=== PATIENT | female | born 1945 | race Caucasian/White ===

== ENCOUNTER 2017-07-16 19:01 | Inpatient (IN) ==
--- OUTSIDE RECORDS SUMMARY | 2017-07-16 19:15 | External Medical Summary ---
:1945 Author Organization [facility]. Summary purpose CCDA Sent to [facility] Chief Complaint and Reason for Visit Admit Diagnosis 1 R GROIN/R HIP PAIN Problem list Condition Status Certainty Chronicity Onset .Pain - other; Right groin pain Discharged Encounters The following conditions tracked for encounter diagnoses were recorded for this visit: Finding or Diagnosis Status Certainty Chronicity Onset .Pain - other; Right groin pain Discharged Medications Discharge Medications Status Medication Directions Current ALPRAZolam 0.5 mg tablet 0.05 miligram(s) oral HS Current atorvastatin 10 mg tablet 10 miligram(s) oral HS Current Calcium 500 500 mg calcium (1,250 mg) 1.5 gram(s) oral BID tablet Current Coumadin 3 mg tablet 3 miligram(s) oral DAILY 3mg Mon-Sat, 4mg Sun Current cycloSPORINE (RESTASIS) 0.05 %: DROPS 2 DROP ophthalmic Give OPHT BID Current digoxin 250 mcg tablet 250 miligram(s) oral DAILY Current FLUoxetine 20 mg tablet 20 miligram(s) oral DAILY Current insulin aspart (NOVOLOG) 100 unit/mL: 12 UNIT subcutaneous Give SUBQ WITH VIAL MEALS Current insulin detemir (LEVEMIR) 100 unit/mL: 32 UNIT subcutaneous Give SUBQ HS VIAL Current losartan 25 mg tablet 25 miligram(s) oral DAILY Current metFORMIN 500 mg tablet 500 miligram(s) oral BID Current meTOPROLOL tartrate 50 mg tablet 50 miligram(s) oral BID Current nitroglycerin 0.4 mg sublingual tablet 0.04 miligram(s) Sublingual SL DAILY NEEDED for chest pain every 4 min as needed Current oxyCODONE-acetaminophen (PERCOCET) 1 TAB oral EVERY THREE HOURS 10-325 mg: TABLET NEEDED for PAIN Stopped Novolog Mix 70-30 100 unit/mL 14 unit(s) subcutaneous WITH MEALS subcutaneous cartridge Stopped Tylenol Arthritis Pain 650 mg 1300 miligram(s) oral EVERY EIGHT HOURS tablet,extended release 2-3 caplets Allergies, adverse reactions, alerts Allergen Category Ingredient Status Reaction Severity Onset No Known Food No Known Food No Known Food Active Allergy Allergy Allergy No Known Drug No Known Drug No Known Drug Active Allergy Allergy Allergy Immunizations No immunizations recorded for this patient visit Relevant diagnostic tests and/or laboratory data RESULTS [id number]:00 Discharge Summary Patient disagreeable to nursing staff and , upset at family, blamed daughter for letting hospital interfere with their relationship. Patient ambulated from her room to leave hospital, this nurse provided wheelchair and assisted family to waiting vehicle. Patient stood without assistance and climbed into front seat of suburban unassisted. [id number] Discharge Summary Pt is admitted as outpt thru ER with uncontrolled right groin and thigh pain. [place] [facility] [place] that was essentially negative for fx or other cause of pain. She was dismissed to home, and reports her pain is uncontrolled, and she is unable to amb due to the pain. She is admitted for pain control, and further eval. Her xray of the pelvis is negative for fx. Her pain is fairly well controlled with Percocet and flexeril. Pt with irritability - markedly worse in the evening. Improved again in the am of the day of dismissal. CBC [id number]:00 Result Normal Range Units WBC 9.16 4.8-10.8 x103/mm3 Neutrophil % H 77.6 50-70 % Lymph % L 14.2 20-50 % [place] % 8.0 1.0-9.0 % Eosinophil % 0.0 0-4 % Basophil % 0.2 0-2 % Neutrophil # H 7.11 3.0-7.0 x103/mm3 Lymph # 1.30 1.0-4.0 x103/mm3 [place] # 0.73 0.0-0.8 x103/mm3 Eosinophil # 0.00 0-0.5 x103/mm3 Basophil # 0.02 0-0.2 x103/mm3 RBC 4.55 4.20-5.40 x103/mm3 HGB 13.7 12.0-16.0 g/dl HCT 41.4 37.0-47.0 % MCV 91.0 81-99 FL MCH 30.1 27.0-31.0 pg MCHC 33.1 32.0-36.0 g/dl RDW 13.0 12-15 % Platelet 195 150-400 x103/mm3 MPV 9.8 6.0-10.0 FL Chemistry Group [id number]:00 Result Normal Range Units Sodium 136 134-145 mmol/L Potassium 4.3 3.6-5.0 mmol/L Chloride 99 98-107 mmol/L CO2 26 22-30 mmol/L Glucose H 271 75-110 mg/dl BUN 16 9-20 mg/dl Creatinine L .62 0.8-1.7 mg/dl eGFR 95 ml/min. Total Protein L 6.2 6.3-8.2 g/dl Albumin L 3.4 3.5-5.0 g/dl Calcium 8.8 8.4-10.2 mg/dl Alk Phos 72 38-126 U/L AST H 55 14-36 U/L ALT 48 11-66 U/L T Bili .7 0.2-1.3 mg/dl A/G Ratio 1.2 Ratio Uric Acid 3.6 3.5-8.5 mg/dl Digoxin 1.0 0.8-2.0 ng/ml Coagulation Group [id number]:30:00 Result Normal Range Units Protime 12.2 9.5-12.3 Sec INR 1.1 History of procedures Procedure Code Code Type Description Date Performed Performing Physician 03148 CPT-4 COMPREHEN METABOLIC 08-01-2016 MONSTER HAZEL PANEL 93147 CPT-4 PROTHROMBIN TIME 08-01-2016 MONSTER HAZEL 35346 CPT-4 COMPLETE CBC, 08-01-2016 MONSTER HAZEL AUTOMATED 61657 CPT-4 ASSAY OF DIGOXIN 08-01-2016 MONSTER HAZEL 07950 CPT-4 ASSAY OF BLOOD/URIC 08-01-2016 MONSTER HAZEL ACID 15268 CPT-4 X-RAY EXAM OF PELVIS 08-01-2016 MONSTER HAZEL J1815 CPT-4 INSULIN INJECTION 08-01-2016 MONSTER HAZEL J1815 CPT-4 INSULIN INJECTION 08-01-2016 MONSTER HAZEL J1885 CPT-4 KETOROLAC TROMETHAMINE 08-01-2016 MONSTER HAZEL INJ J1815 CPT-4 INSULIN INJECTION 08-01-2016 MONSTER HAZEL J1815 CPT-4 INSULIN INJECTION 08-01-2016 MONSTER HAZEL J1815 CPT-4 INSULIN INJECTION 08-01-2016 MONSTER HAZEL J1815 CPT-4 INSULIN INJECTION 08-01-2016 MONSTER HAZEL J1815 CPT-4 INSULIN INJECTION 08-01-2016 MONSTER HAZEL J1815 CPT-4 INSULIN INJECTION 08-02-2016 MONSTER HAZEL J1815 CPT-4 INSULIN INJECTION 08-02-2016 MONSTER HAZEL 40800 CPT-4 EMERGENCY DEPT VISIT 07-31-2016 MONSTER HAZEL G0378 CPT-4 HOSPITAL OBSERVATION [place] 08-01-2016 [place] [address] CPT-4 THER/PROPH/DIAG INJ, IV 08-01-2016 MONSTER HAZEL PUSH 11929 CPT-4 THER/PROPH/DIAG INJ, 08-01-2016 MONSTER HAZEL SC/IM 88748 CPT-4 THER/PROPH/DIAG INJ, 08-01-2016 MONSTER HAZEL SC/IM 09321 CPT-4 THER/PROPH/DIAG INJ, 08-01-2016 MONSTER HAZEL SC/IM 19566 CPT-4 THER/PROPH/DIAG INJ, 08-01-2016 MONSTER HAZEL SC/IM 83019 CPT-4 THER/PROPH/DIAG INJ, 08-01-2016 MONSTER HAZEL SC/IM 62103 CPT-4 THER/PROPH/DIAG INJ, 08-01-2016 MONSTER HAZEL SC/IM 92985 CPT-4 THER/PROPH/DIAG INJ, 08-02-2016 MONSTER HAZEL SC/IM 79200 CPT-4 THER/PROPH/DIAG INJ, 08-02-2016 MONSTER HAZEL SC/IM Functional status Functional Status Finding Observation Time Impaired Extremity o Yes (Please Specify) [id number]:50 Comment: RLE Weight Bearing Statu Full [id number]:45 Transferring/Ambulat Needs Assistance [id number]:50 Bathing Needs Assistance [id number]:50 Dressing Needs Assistance 38-04-202435:50 Eating Independent [id number]:50 Drinking Independent 97-31-501310:50 Toileting Independent 57-23-410803:50 Able to Turn Self in Independent 26-24-281562:50 Cane Yes [id number]:50 Walker Yes :50 Cognitive Status Finding Observation Time Level of Consciousne Alert :45 Oriented to Person Yes :[address] Yes :45 Oriented to Time Yes :45 Eyes - KASSY Yes :45 Vital signs Type Value Date Respirations 16 :22 Pulse 50 :22 O2 Saturation 94% :22 Systolic Blood Press 191mm/HG :22 Diastolic Blood Pres 87mm/HG :22 Temperature (Fahr) 98.4Degrees :22 Height 61in :26 Weight 198.7LB :26 Social history Type Value Smoking Status NEVER SMOKER Treatment Plan Treatment Plan at Patient previously signed discharge papers reviewing her medications and follow-up with PCP. Discharge delayed due to patient reporting pain increased to 10, blood pressure increased at 1422. Patient losartan increased on discharge. Follow up with PCP. Hospital discharge instructions Diagnosis Right groin pain. Diet low sweet diet Activity Level Walk with wheeled walker at all times. Personal Items Retur home medications with daughter at 1710. Med Dispensed by Pro none Flu Vaccine Given Current/Not Needed Pneumonia Vaccine Gi Current/Not Needed Follow up with Dr. Dumas Appointment Date and 0900 08/06/2016
--- OUTSIDE RECORDS SUMMARY | 2017-07-16 19:16 | External Medical Summary | Continuity of Care Document ---
:1945 Author Organization [facility] Allergies Active Description Code Type Severity Reaction Onset Reported/ Identified Relationship Clinical to Patient Status Yes No Known 31597 ND N/A N/A 08/01/2016 Confirmed Drug Allergy 590 or Verified Yes No Known NO NF N/A N/A 08/01/2016 Confirmed Food Allergy KNOWN or FOOD Verified ALLER G Medications There is no data. 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 08/02/2016 Simi HAZEL MD E11.9 Type 2 diabetes MONSTER R mellitus without complications 08/02/2016 Simi HAZEL MD I10 Essential (primary) MONSTER R hypertension 08/02/2016 Simi HAZEL MD I48.2 Chronic atrial MONSTER R fibrillation 08/02/2016 Simi HAZEL MD M25.551 Pain in right hip MONSTER R 08/02/2016 Simi HAZEL MD M47.9 Spondylosis, MONSTER R unspecified 08/02/2016 Simi HAZEL MD R45.1 Restlessness and MONSTER R agitation 08/02/2016 Simi HAZEL MD Z79.4 retirement (current) MONSTER R use of insulin Procedures Code Description [place] [address] BRETT CHAPPELL 05/15/2012 THER/PROPH/DIAG INJ, SC/IM 14254 EMERGENCY BRETT CHAPPELL 05/15/2012 DEPT VISIT J1885 KETOROLAC BRETT CHAPPELL 05/15/2012 TROMETHAMINE INJ J2550 PROMETHAZINE BRETT CHAPPELL 05/15/2012 HCL INJECTION 51331 PROTHROMBIN MARION COBB MD 11/18/2013 TIME 35781 EMERGENCY MONSTER HAZEL MD 07/31/2016 DEPT VISIT 15976 X-RAY EXAM OF ILIR FLORIAN, MONSTER Hodgson 08/01/2016 PELVIS 98667 COMPREHEN ILIR FLORIAN, MONSTER Hodgson 08/01/2016 METABOLIC PANEL 96658 ASSAY OF MONSTER HAZEL MD 08/01/2016 DIGOXIN 85124 ASSAY OF MONSTER HAZEL MD 08/01/2016 BLOOD/URIC ACID 26155 COMPLETE CBC, MONSTER HAZEL MD 08/01/2016 AUTOMATED 56588 PROTHROMBIN MONSTER HAZEL MD 08/01/2016 TIME 20930 MONSTER HAZEL MD 08/01/2016 THER/PROPH/DIAG INJ, SC/IM 76233 MONSTER HAZEL MD 08/01/2016 THER/PROPH/DIAG INJ, IV PUSH G0378 HOSPITAL MONSTER HAZEL MD 08/01/2016 OBSERVATION PER HR J1815 INSULIN MONSTER HAZEL MD 08/01/2016 INJECTION J1885 KETOROLAC MONSTER HAZEL MD 08/01/2016 TROMETHAMINE INJ 08713 MONSTER HAZEL MD 08/02/2016 THER/PROPH/DIAG INJ, SC/IM J1815 INSULIN MONSTER HAZEL MD 08/02/2016 INJECTION Results Test Result Range Protime - 11/18/13 10:05 INR 3.5 Protime 39.3 SEC 9.8-12.4 CBC - 08/01/16 07:53 Eos # 0.00 x10^3 0-0.5 Eos % 0.0 % 0-4 HCT 41.4 % 37.0-47.0 HGB 13.7 G/DL 12.0-16.0 Lymph # 1.30 x10^3 1.0-4.0 Lymph % 14.2 % 20-50 MCH 30.1 PG 27.0-31.0 MCHC 33.1 G/DL 32.0-36.0 MCV 91.0 FL 81-99 [place] # 0.73 x10^3 0.0-0.8 [place] % 8.0 % 1.0-9.0 MPV 9.8 FL 6.0-10.0 Platelet 195 x10^3 150-400 RBC 4.55 x10^3 4.20-5.40 RDW 13.0 % 12-15 WBC 9.16 x10^3 4.8-10.8 Baso # 0.02 x10^3 0-0.2 Baso % 0.2 % 0-2 Neut % 77.6 % 50-70 Neut # 7.11 x10^3 3.0-7.0 Comprehensive Metabolic Panel - 08/01/16 08:14 Sodium 136 MMOLL 134-145 Potassium 4.3 MMOLL 3.6-5.0 Chloride 99 MMOLL 98-107 CO2 26 MMOLL 22-30 Glucose 271 MG/DL 75-110 BUN 16 MG/DL 9-20 Creatinine .62 MG/DL 0.8-1.7 Calcium 8.8 MG/DL 8.4-10.2 T Bili .7 MG/DL 0.2-1.3 T. Protein 6.2 G/DL 6.3-8.2 A/G Ratio 1.2 RATIO Albumin 3.4 G/DL 3.5-5.0 Alk Phos 72 U/L 38-126 ALT 48 U/L 11-66 AST 55 U/L 14-36 EGFR 95 MLMIN Digoxin - 08/01/16 08:14 Digoxin 1.0 NG/ML 0.8-2.0 Uric Acid - 08/01/16 08:14 Uric Acid 3.6 MG/DL 3.5-8.5 Protime - 08/01/16 08:23 INR 1.1 Protime 12.2 SEC 9.5-12.3 Encounters ACCT No. Visit Discharge Status Pt. Type Provider Facility Loc./Unit Complaint Date/Time [id number] 08/01/2016 08/02/2016 Parul Hastings MD 01:16:00 16:00:00 t [facility] [id number] 11/18/2013 11/18/2013 Parul Simpson MD 11:29:00 11:29:00 [facility] [id number] 05/15/2012 Document 15:25:00 Registrat ion
[2017-07-16] MEDS ORDERED: CEFEPIME 1 GM in NS 100 ML IV ONE (19:23)
[2017-07-16] MEDS ORDERED: SALINE FLUSH 10ml SYRINGE IVF PRN (19:23)
[2017-07-16] MEDS ORDERED: NS 1,000 ML IV ONE ×3 (19:23→20:42)
--- NOTE | 2017-07-16 19:36 | Emergency Department Report ---
Fall HPI - General Chief Complaint: Fall Stated Complaint: fever,fall Time Seen by Provider: 07/16/17 19:09 Source: patient, EMS, RN notes reviewed, old records reviewed Mode of arrival: EMS Limitations: no limitations - History of Present Illness HPI Narrative: 72yo woman presents to the ER for evaluation after a fall. Pt does not remember falling; she is not sure how long she was on the floor of her home. She was awoken by a pharmacy worker who came to her home to give pt her medications. Pt has had 2+/- weeks of diarrhea. Today, pt has noted that her urine is dark/ cloudy/malodorous. Since being assessed and transported, pt has c/o right hip/ LBP pain. Pt feels dehydrated. MD complaint: fall Onset (ago): unknown Fall from: standing Fall witnessed: no Place fall occurred: home Loss of consciousness: yes Prolonged down time: unclear Symptoms prior to fall: none Location of injury: back Severity: moderate Severity scale (1-10): 5 Quality: aching Associated symptoms (after fall): weakness, confusion - Related Data Home Medications Medication Instructions Recorded Confirmed Acetaminophen [Acetaminophen 8 650 mg PO TID #0 07/28/16 07/16/17 Hour] Atorvastatin Calcium 10 mg PO HS #0 07/28/16 07/16/17 Calcium Carbonate 600 mg PO BIDBS #0 07/28/16 07/16/17 Digoxin 250 mcg PO DAILY #0 07/28/16 07/16/17 Insulin Aspart [NovoLOG] 14 unit SQ TIDWM #0 07/28/16 07/16/17 ALPRAZolam [Xanax] 0.5 mg PO DAILY PRN 07/16/17 07/16/17 Aspirin [Aspirin EC] 81 mg PO DAILY 07/16/17 07/16/17 Cholecalciferol (Vitamin D3) 1,000 unit PO DAILY 07/16/17 07/16/17 [Vitamin D3] Cyclobenzaprine [Flexeril] 10 mg PO TID 07/16/17 07/16/17 FLUoxetine [Prozac] 20 mg PO DAILY 07/16/17 07/16/17 Insulin Detemir [Levemir Flextouch] 35 unit SQ HS 07/16/17 07/16/17 Losartan Potassium [Losartan 25 mg PO DAILY 07/16/17 07/16/17 Potassium] Metformin HCl [Metformin HCl ER] 500 mg PO BID 07/16/17 07/16/17 Metoprolol Tartrate 50 mg PO BID 07/16/17 07/16/17 Warfarin Sodium [Warfarin Sodium] 3 mg PO RM@1700 07/16/17 07/16/17 Warfarin Sodium [Warfarin Sodium] 4 mg PO SUSA@1700 07/16/17 07/16/17 cycloSPORINE [Restasis Multidose] 1 drop EACH EYE BID 07/16/17 07/16/17 Allergies Allergy/AdvReac Type Severity Reaction Status Date / Time JAISON Inhibitors Allergy Unknown Verified 07/16/17 19:26 Review of Systems All systems: reviewed and negative except as stated Constitutional: Reports: as per HPI, weakness. Denies: fever, chills, weight change, night sweats Gastrointestinal: Reports: as per HPI, abdominal pain, diarrhea. Denies: nausea , vomiting, constipation, hematemesis, melena, hematochezia Genitourinary: Reports: as per HPI, urgency, dysuria, frequency. Denies: hematuria (Had 2 days ago. None today), discharge, abnormal menses, dyspareunia , genital lesions Musculoskeletal: Reports: as per HPI, back pain, arthralgia. Denies: joint swelling, myalgia [facility] Medical History Updates: Anxiety. A-fib. HL. Osteoporosis. Depression. IDDM Physical Exam - Limitations Limitations: no limitations - General General appearance: alert, in no apparent distress, obese - Normal Exams: Head:: Normocephalic without trauma Eyes:: Pupils are PERRLA w/ EOMI, No scleral icterus, irritation, or foreign bodies noted ENMT:: No facial trauma, nasal exudates, pharyngeal erythema, or exudates are noted Neck:: Full range of motion, without adenopathy Lymphatic:: No lymphadenopathy Integumentary:: No rashes, hives Neurological:: Patient is alert, and oriented, cranial nerves, motor/sensory/ cerebellar, exams w/o gross deficits Psychiatric:: Patient exhibits, appropriate attention - Chest Chest inspection: Present: normal inspection, symmetric chest wall rise. Absent : tenderness, rash - Respiratory Respiratory exam: Present: normal lung sounds bilaterally. Absent: respiratory distress, wheezes, prolonged expiratory phase, crackles - Cardiovascular Cardiovascular exam: Present: regular rate, normal heart sounds. Absent: normal rhythm - Abdominal Exam Abdominal exam: Present: soft, tenderness, normal bowel sounds. Absent: distention, guarding, rebound, rigidity Abdominal tenderness: Present: diffuse, moderate - Extremities Exam Extremities exam: Present: full ROM, tenderness (Over right hip), normal capillary refill, other (Ecchymosis over greater trochanter). Absent: normal inspection, pedal edema Course - Consultations Consultation #1: Telehospitalist: Will admit to ICU for further eval and treatment. Time: 20:44 Fall - MDM Narrative Medical decision making narrative: Pt with UTI and criteria for sepsis. Elevated BG with ketones and a gap - pt has DKA. CK is elevated, but pt does not have rhabdomyolysis. Will contact telehospitalist for eval/admission. - Differential Diagnosis Likely: syncope, compression fracture, concussion with loss of consciousness, concussion without loss of consciousness (UTI, sepsis, rhabdo, VA) - Medical Records Attestation: I reviewed the patient's medical records. - Lab Data Attestation: I reviewed the patient's lab results. Result diagrams: 07/16/17 19:41 07/16/17 19:41 Lab Results 07/16/17 07/16/17 07/16/17 Range/Units 19:41 19:41 19:41 WBC 15.8 H (4.5-11.0) T/MM3 RBC 3.83 L (4.00-5.20) M/MM3 Hgb 11.2 L (12-16) GM/DL Hct 34.1 L (36-46) % MCV 89.0 (80-100) UM3 MCH 29.2 (26-34) UUG MCHC 32.8 (31-37) GM/DL RDW Std Deviation 42.1 (36.9-50.2) FL Plt Count 136 (130-400) T/MM3 MPV 10.3 (9.4-12.4) UM3 Immature Gran % (Auto) Not performed Neut % (Auto) Not performed Lymph % (Auto) Not performed [place] % (Auto) Not performed Eos % (Auto) Not performed Baso % (Auto) Not performed Neut # (Auto) Not performed Lymph # (Auto) Not performed [place] # (Auto) Not performed Eos # (Auto) Not performed Baso # (Auto) Not performed Abs Immat Gran (auto) Not performed Neutrophils % (Manual) 71.0 H (33-66) % Band Neutrophils % 11.0 H (0-6) % Lymphocytes % (Manual) 5.0 L (23-45) % Monocytes % (Manual) 12.0 H (0-9.0) % Eosinophils % (Manual) 1.0 (0-4) % Neutrophils # (Manual) 11.2 H (1.8-7.7) T/MM3 Band Neutrophils # 1.7 T/MM3 Lymphocytes # (Manual) 0.8 L (1-4.8) T/MM3 Monocytes # (Manual) 1.9 H (0-0.8) T/MM3 Eosinophils # (Manual) 0.2 (0-0.5) T/MM3 RBC Morph Comment Normal INR 2.50 H (0.99-1.21) Turbidity (0-20) Sodium (134-144) MEQ/L Potassium (3.6-5) MEQ/L Chloride (98-107) MEQ/L Carbon Dioxide (22-30) MEQ/L Anion Gap (5-15) MEQ/L BUN (7-17) MG/DL Creatinine (0.7-1.2) MG/DL GFR Calculation BUN/Creatinine Ratio (6-26) RATIO Glucose (65-110) MG/DL Calculated Osmolality (261-280) MOSM/KG Calcium (8.4-10.2) MG/DL Total Bilirubin (0.20-1.30) MG/DL Icterus Index (0-7) AST (14-36) U/L ALT (9-52) U/L Alkaline Phosphatase (38-126) U/L Creatine Kinase 1419 H (30-135) U/L Troponin I 0.327 H (0-0.12) ng/ml Total Protein (6.3-8.2) G/DL Albumin (3.5-5.0) G/DL Globulin (2.4-3.6) G/DL Albumin/Globulin Ratio (1.1-2.2) RATIO Lipase 34 (23-300) U/L Plasma Lactate 3.2 H (0.6-2.2) MMOL/L Specimen Hemolysis < 15 (0-25) Ur Collection Type Urine Color (YELLOW) Urine Clarity Urine pH (5.0-8.0) Ur Specific [place] (1.015-1.025) Urine Protein (NEGATIVE) Urine Glucose (UA) (NEGATIVE) Urine Ketones (NEGATIVE) Urine Occult Blood (NEGATIVE) Urine Nitrate (NEGATIVE) Urine Bilirubin (NEGATIVE) Urine Urobilinogen (NORMAL) EU/DL Ur Leukocyte Esterase (NEGATIVE) Urine RBC (0-3) /HPF Urine WBC (0-5) /HPF Urine Bacteria (NEGATIVE) Ur Culture Indicated? B-Hydroxybutyrate 2.00 H (0-0.6) MMOL/L 07/16/17 07/16/17 Range/Units 19:41 20:03 WBC (4.5-11.0) T/MM3 RBC (4.00-5.20) M/MM3 Hgb (12-16) GM/DL Hct (36-46) % MCV (80-100) UM3 MCH (26-34) UUG MCHC (31-37) GM/DL RDW Std Deviation (36.9-50.2) FL Plt Count (130-400) T/MM3 MPV (9.4-12.4) UM3 Immature Gran % (Auto) Neut % (Auto) Lymph % (Auto) [place] % (Auto) Eos % (Auto) Baso % (Auto) Neut # (Auto) Lymph # (Auto) [place] # (Auto) Eos # (Auto) Baso # (Auto) Abs Immat Gran (auto) Neutrophils % (Manual) (33-66) % Band Neutrophils % (0-6) % Lymphocytes % (Manual) (23-45) % Monocytes % (Manual) (0-9.0) % Eosinophils % (Manual) (0-4) % Neutrophils # (Manual) (1.8-7.7) T/MM3 Band Neutrophils # T/MM3 Lymphocytes # (Manual) (1-4.8) T/MM3 Monocytes # (Manual) (0-0.8) T/MM3 Eosinophils # (Manual) (0-0.5) T/MM3 RBC Morph Comment INR (0.99-1.21) Turbidity < 20 (0-20) Sodium 135 (134-144) MEQ/L Potassium 3.7 (3.6-5) MEQ/L Chloride 98 (98-107) MEQ/L Carbon Dioxide 19 L (22-30) MEQ/L Anion Gap 18 H (5-15) MEQ/L BUN 31.0 H (7-17) MG/DL Creatinine 1.3 H (0.7-1.2) MG/DL GFR Calculation 40 BUN/Creatinine Ratio 24 (6-26) RATIO Glucose 319 H (65-110) MG/DL Calculated Osmolality 279 (261-280) MOSM/KG Calcium 10.8 H (8.4-10.2) MG/DL Total Bilirubin 1.30 (0.20-1.30) MG/DL Icterus Index < 2 (0-7) AST 63 H (14-36) U/L ALT 41 (9-52) U/L Alkaline Phosphatase 80 (38-126) U/L Creatine Kinase (30-135) U/L Troponin I (0-0.12) ng/ml Total Protein 7.4 (6.3-8.2) G/DL Albumin 4.3 (3.5-5.0) G/DL Globulin 3.1 (2.4-3.6) G/DL Albumin/Globulin Ratio 1.4 (1.1-2.2) RATIO Lipase (23-300) U/L Plasma Lactate (0.6-2.2) MMOL/L Specimen Hemolysis < 15 (0-25) Ur Collection Type Urine, cath arshad Urine Color Yellow (YELLOW) Urine Clarity Turbid Urine pH 5.5 (5.0-8.0) Ur Specific [place] 1.025 (1.015-1.025) Urine Protein 2+ A (NEGATIVE) Urine Glucose (UA) 1+ A (NEGATIVE) Urine Ketones 1+ A (NEGATIVE) Urine Occult Blood 3+ A (NEGATIVE) Urine Nitrate Negative (NEGATIVE) Urine Bilirubin Negative (NEGATIVE) Urine Urobilinogen 0.2 (NORMAL) EU/DL Ur Leukocyte Esterase 2+ A (NEGATIVE) Urine RBC 50-200 H (0-3) /HPF Urine WBC Tntc H (0-5) /HPF Urine Bacteria 4+ H (NEGATIVE) Ur Culture Indicated? Cult reflexed &setup B-Hydroxybutyrate (0-0.6) MMOL/L - Radiology Data Attestation: I reviewed the patient's radiology results. CXR: No acute osseus abnormality. - EKG Data EKG #1 EKG attestation: Yes: I reviewed and interpreted this EKG. EKG shows normal: sinus rhythm, axis Rate: normal [place]/QRS: IVCD Heart block present: 1st Degree Interpretation: nonspecific ST-T wave changes Disposition Clinical Impression: Sepsis Qualifiers: Sepsis type: sepsis due to unspecified organism Qualified Code(s): A41.9 - Sepsis, unspecified organism DKA (diabetic ketoacidoses) Qualifiers: Diabetes mellitus type: type 2 Diabetes mellitus complication detail: without coma Qualified Code(s): E11.10 - Type 2 diabetes mellitus with ketoacidosis without coma UTI (urinary tract infection) Qualifiers: Urinary tract infection type: acute pyelonephritis Qualified Code(s): N10 - Acute pyelonephritis Syncope Qualifiers: Syncope type: unspecified Qualified Code(s): R55 - Syncope and collapse Disposition: 02 To [facility] Acute Care Print Language: Yi Condition: Improved Prescriptions: No Action Atorvastatin Calcium 10 mg PO HS #0 Calcium Carbonate 600 mg PO BIDBS #0 ALPRAZolam [Xanax] 0.5 mg PO DAILY PRN PRN Reason: Anxiety Insulin Detemir [Levemir Flextouch] 35 unit SQ HS Cholecalciferol (Vitamin D3) [Vitamin D3] 1,000 unit PO DAILY Metformin HCl [Metformin HCl ER] 500 mg PO BID Aspirin [Aspirin EC] 81 mg PO DAILY Warfarin Sodium [Warfarin Sodium] 4 mg PO SUSA@1700 Metoprolol Tartrate 50 mg PO BID Losartan Potassium [Losartan Potassium] 25 mg PO DAILY FLUoxetine [Prozac] 20 mg PO DAILY Cyclobenzaprine [Flexeril] 10 mg PO TID cycloSPORINE [Restasis Multidose] 1 drop EACH EYE BID Insulin Aspart [NovoLOG] 14 unit SQ TIDWM #0 Acetaminophen [Acetaminophen 8 Hour] 650 mg PO TID #0 Digoxin 250 mcg PO DAILY #0 Warfarin Sodium [Warfarin Sodium] 3 mg PO MOTUWETHFR@1700 Referrals: Alesia Sesay MD [Family Provider] - Time of Disposition: 21:13 - Seen By: physician
[2017-07-16 22:04] VITALS: BMI 34.2
[2017-07-16] MEDS ORDERED: DEXTROSE 50% SYRINGE 50ml (1 AMP) IVP PRN (22:10)
[2017-07-16] MEDS ORDERED: GLUCOSE ORAL GEL 40% 37.5gm PO PRN (22:10)
[2017-07-16] MEDS: NS 1,000 ML IV SCH (22:22)
[2017-07-16] MEDS ORDERED: VANCOMYCIN - PHARMACY CONSULT MC ONE (22:33)
[2017-07-16] MEDS: INSULIN ASPART 100unit/ml INJECTION SQ PRN (22:49)
[2017-07-16] MEDS: ALPRAZolam 0.5 MG TABLET PO PRN (23:02)
--- NOTE | 2017-07-16 23:16 | History & Physical Report ---
History of Present Illness Date: 07/16/17 Chief complaint: fell, down for approx 6 hours, Altered mental status HPI: Cecille is a 72 y/o w/ h/o AFib on warfarin, type II DM insulin requiring and other medical issues who presents to ED w/ generalized weakness and feeling as if she was going to fall since yesterday afternoon. She remembers going to bed late last night and did wake up this am around 10 AM and took her medications but tells me she has poor recall of all the events of the morning and was found late this afternoon around 1730 by a clinical pharmacy technician who was bringing her meds to her. Patient recalls hearing the tech at the door but has no recall of events prior to that. She has no obvious head trauma but does have some bruising to the left hip. She has been having diarrhea intermittently x one month, more so last 3-4 days; she felt weak yesterday, had fever this evening when EMS arrived to her house of 100.4; She recalls having + hematuria earlier in the week, and also some recent chills as well. She denies cp, soa, sore throat, zurita, n/v and denies melena or hematochezia. In ED her UA was + for leukocyte esterase and TNTC WBCs per HPF, her lactate was elevated at 3.2, glucose was 319, Cr was 1.3 and BUN was 31 and CK 1500 and troponin 0.327 though EKG showed no significant changes per ER report; INR was 2.5 and patient on warfarin. Patient started on IVFS and given 3L NS in ER and started on Cefepime IV and blood and urine culture pending. XR of hip and pelvic showed no fx on prelim read and CT abd/pelvis on prelim read showed no acute process Patient admitted to the hospitalist service for further evaluation and management. At present patient is resting comfortably, feels better and is alert and oriented x 3 Review of Systems All systems PM: 10-point ROS was reviewed, no additional remarkable complaints except Past Medical History Patient Stated Medical History Dementia Yes Cataracts Yes Other HEENT Yes: WEARS GLASSES Cardiac Arrhythmia Yes: A-FIB Hypertension Yes Myocardial Infarction Yes Other Respiratory Yes: SOA Diabetes Mellitus Type 1 Yes Hx Incontinence Yes: FREQUENCY Clotting Problems Yes: COUMADIN MRSA Yes: 1994 Depression Yes Ovarian Cysts Yes Medical History Updates: Anxiety. A-fib. HLD. HTN. Osteoporosis. Depression. Type II DM insulin requiring Family History Updates: No significant updates to family hx reported - Social History Smoking status: Never smoker Medications Home Medications Medication Instructions Recorded Confirmed Type Acetaminophen [Acetaminophen 8 650 mg PO TID #0 07/28/16 07/16/17 History Hour] Atorvastatin Calcium 10 mg PO HS #0 07/28/16 07/16/17 History Calcium Carbonate 600 mg PO BIDBS #0 07/28/16 07/16/17 History Digoxin 250 mcg PO DAILY #0 07/28/16 07/16/17 History Insulin Aspart [NovoLOG] 14 unit SQ TIDWM #0 07/28/16 07/16/17 History ALPRAZolam [Xanax] 0.5 mg PO DAILY PRN 07/16/17 07/16/17 History Aspirin [Aspirin EC] 81 mg PO DAILY 07/16/17 07/16/17 History Cholecalciferol (Vitamin D3) 1,000 unit PO DAILY 07/16/17 07/16/17 History [Vitamin D3] Cyclobenzaprine [Flexeril] 10 mg PO TID 07/16/17 07/16/17 History FLUoxetine [Prozac] 20 mg PO DAILY 07/16/17 07/16/17 History Insulin Detemir [Levemir Flextouch] 35 unit SQ HS 07/16/17 07/16/17 History Losartan Potassium [Losartan 25 mg PO DAILY 07/16/17 07/16/17 History Potassium] Metformin HCl [Metformin HCl ER] 500 mg PO BID 07/16/17 07/16/17 History Metoprolol Tartrate 50 mg PO BID 07/16/17 07/16/17 History Warfarin Sodium [Warfarin Sodium] 3 mg PO MOTUWETHFR@1700 07/16/17 07/16/17 History Warfarin Sodium [Warfarin Sodium] 4 mg PO SUSA@1700 07/16/17 07/16/17 History cycloSPORINE [Restasis Multidose] 1 drop EACH EYE BID 07/16/17 07/16/17 History Allergies Allergy/AdvReac Type Severity Reaction Status Date / Time JAISON Inhibitors Allergy Unknown Verified 07/16/17 19:26 Exam Vital Signs: Temperature 97.8 F 07/16/17 22:23 Pulse Rate 100 07/16/17 22:23 Respiratory Rate 18 07/16/17 22:23 Blood Pressure 105/57 07/16/17 21:45 Pulse Oximetry 95 07/16/17 22:23 Height/Weight/BMI: Height 1.55 m Weight 82.2 kg Body Mass Index 34.2 - Constitutional Present: no acute distress, well nourished, well developed - Routine HEENT Exam Head: Present: normocephalic, atraumatic. Absent: abrasion, laceration, hematoma Eye: Present: EOMI, PERRL ENT: Present: mucous membranes dry, nares patent - Routine Neck Exam Present: supple. Absent: JVD - Routine Respiratory Exam Present: CTA bilaterally. Absent: accessory muscle use, dyspnea, prolonged expiratory phase, rales, respiratory distress, rhonchi, stridor, wheezes, crackles, distant breath sounds, diminished air movement - Routine Cardiovascular Exam Comments: S1 and S2 heard, appear regular - Routine Abdominal Exam Present: soft, normoactive bowel sounds, non distended, non tender - Routine Extremities Exam Absent: cyanosis, clubbing, edema - Routine Skin Exam Absent: intact, cyanosis, erythema - Routine Neurological Exam Present: alert, oriented X3, CN II-XII intact - Routine Psychiatric Exam Present: normal affect, normal thought process, cooperative Results - Labs CBC & Chem 7: 07/16/17 19:41 07/16/17 19:41 Assessment and Plan Assessment and Plan: A/ 1) Acute Sepsis POA 2) Acute UTI 3) Acute Rhabdomyolysis 4) JASON 5) Hyperglycemia with Type II DM insulin requiring 6) Acute Dehydration w/ low BP - 90s/50s-60s 7) Acute Syncopal event suspected, though patient does not recall events of earlier today 8) Acute mental status changes /memory deficit as noted - patient is alert and oriented now and appropriate 9) H/o AFib on warfarin 10 HTN per history 11) HLD 12) Elevated troponin - likely demand ischemia d/t sepsis and other acute conditions noted above. Patient denies chest pain P/ Admit to Hospitalist service in ICU NS tra 125 cc/hour Cefepime 1g q 12 hours Vancomycin pharmacy to dose Lactate reflexively Digoxin level, CBC, CK, BMP, Mg and PT/INR in AM Stool studies ordered, not as of yet collected Hold losartan Home meds as indicated, parameters for metoprolol Check troponin in AM Sanchez catheter Blood cultures pending Urine culture pending Telemetry Correctional insulin I have discussed the plan of care w/ the patient and patient's family and they verbalized understanding and agreement DVT Prophylaxis: SCD's Resuscitation Status: Full Code - Physician Narrative Narrative: Date: 07/16/17 Time: 2306 Hospital Course Summary Disclaimer: The visit summary below is not to be considered part of the above Progress Note.
[2017-07-16] MEDS ORDERED: FALL RISK - PHARMACY CONSULT MC ONE (23:28)
[2017-07-17] MEDS: ACETAMINOPHEN 325 MG TABLET PO PRN ×4 (02:54→20:18)
[2017-07-17] MEDS: NS 1,000 ML IV SCH ×2 (05:56→18:55)
[2017-07-17] MEDS: INSULIN ASPART 100unit/ml INJECTION SQ PRN ×4 (06:00→20:25)
[2017-07-17] MEDS: DIGOXIN 250 MCG TABLET PO SCH ×2 (07:49→09:15)
[2017-07-17] MEDS: ASPIRIN *EC* 81 MG TABLET PO SCH ×2 (07:50→09:15)
[2017-07-17] MEDS: CALCIUM CARBONATE 600 MG TABLET PO SCH ×2 (07:51→17:31)
[2017-07-17] MEDS: FLUoxetine 20 MG CAPSULE PO SCH ×2 (07:51→09:16)
--- NOTE | 2017-07-17 08:24 | Progress Note ---
- Date 07/17/17 Subjective: 72 y/o with history of Afib on warfarin, type II DM-insulin requiring, CAD with h/o stent x2 in 2013, HTN, HLP and DJD presented to the ED via EMS after being found on the floor by the pharmacy services director who was delivering her meds. She reports that on she went to breakfast and almost fell but caught herself. This was a mechanical issue with her chair. She went home and called her friends and told them she would not be at [employer] that evening. She states she must have gone to bed but her memory is very poor after getting back home on . She thinks she got up wednesday to go to the bathroom and must have fallen although she does not recall this. She states her medications for wednesday am and noon were gone from the bubble pack so she must have taken them wednesday. Again, she has poor recall of events. She remembers waking up on the floor when the pharmacy services director came to deliver her meds and 1730. She yelled for them to come in and EMS was called. Pt transported to ED. EMS found her to have a fever of 100.4. She had no obvious head trauma but has some bruising to the left hip. [facility] tells me that she has been having intermittent diarrhea for about a month but no in the last few days. She started having gross hematuria this past wednesday and wednesday. She knew she was getting a UTI so she started "flushing it out". By wed her bloody urine was much better but her urine was cloudy. She has been having angina with exertion relieved by rest. Her travel consultant is Dr. Hyman. She was supposed to have a yearly follow up in Jun but has not scheduled it yet. She is short of air with exertion but not at rest. She denies N/V. She has been having a ANDREWS for the last couple of days. She has had some chills. No cough or sputum production. In ED her UA was + for leukocyte esterase and TNTC WBCs per HPF, her lactate was elevated at 3.2, glucose was 319, Cr was 1.3 and BUN was 31 and CK 1500 and troponin 0.327 though EKG showed no significant changes per ER report; INR was 2.5 and patient on warfarin. Patient started on IVF and given 3L NS in ER and started on Cefepime and vanco. XR of hip and pelvic showed no fx on prelim read and CT abd/pelvis on prelim read showed no acute process. Urine cx shows E coli, 1/2 blood cultures show E coli, the second is likely similar currently showing Gm neg rods. This am she is feeling a little better. Her abdomen is uncomfortable and tender. She is passing gas. She cannot tell me the timing of her last BM. She is hurting in her hips and legs. She thinks it is muscle skeletal pain. She is wearing oxygen, denies feeling SOA. No current CP. Her PMH includes: Dementia Cataracts, wears glasses HTN Atrial fibrillation CAD s/p stent x2 in 2013, Her travel consultant is Dr. Hyman DM T2 Chronic coumadin anticoagulation Depression Ovarian cysts MRSA in 1994 Anxiety Osteoporosis Surgical hx HC with stents Bilateral TKA Ankle screws and plates FM hx Dad at 61 with CAD Mom at 98 of old age Social Hx retired [employer] Never smoker Walks with walker Objective Vital signs: Temperature 97.9 F 07/17/17 04:00 Pulse Rate 83 07/17/17 07:49 Respiratory Rate 26 H 07/17/17 06:00 Blood Pressure 104/55 07/17/17 06:00 Pulse Oximetry 97 07/17/17 06:00 Rhythm: Normal Sinus Rhythm Height/Weight/BMI: Height 1.55 m Weight 82.2 kg Body Mass Index 34.2 Comments: Gen: alert and oriented. NAD Skin: warm and dry, no rashes HEENT: NC/AT PERRL, EOMI, Sclera, lids and conjunctiva wnl. MMM. OP clear. Neck: Supple. No JVD, Carotids 2+without bruits. Lungs: diminished on the right base. Clear. No rales, rhonchi or wheezes CV: regular. 2/6 systolic murmur. No LE edema Abd: soft. Mildly TTP lower quadrants. No rebound or guarding. +BS MS: BURGESS, good strength and ROM. Neuro: no focal deficits. Results - Labs CBC & Chem 7: 07/17/17 12:26 07/17/17 04:10 Assessment and Plan Assessment and Plan: Assessment and Plan: 1) Acute Sepsis POA -Bandemia -Bacteremia, E coli in 1/2 bl cultures 2) Acute UTI -On Cefepime and vanco IV -IVF -E coli in urine cx. 3) Acute Rhabdomyolysis -Continue IVF, follow renal function 4) JASON-resolved 5) Hyperglycemia with Type II DM insulin requiring -B hydroxybuterate elevated suggestive of DKA -Home metformin on hold -SSI-continue to adjust -IVF 6) Acute Dehydration w/ low BP - 90s/50s-60s -Home losartan held. BP better this am. -Continues on metoprolol 50mg BID -IVF-titrate down 7) Acute Syncopal event suspected, though patient does not recall events of earlier today 8) Acute mental status changes /memory deficit as noted - patient is alert and oriented now and appropriate -Likely related to UTI 9) H/o AFib on warfarin -INR 1.9, pharmacy managing 10) HTN per history -On lopressor 50mg BID, losartan 25mg being held. -Reasonable reading. 11) HLD -On a statin 12) CAD -H/O stents x2 in 2013, Dr. Hyman is her travel consultant 13) Elevated troponin - likely demand ischemia d/t sepsis and other acute conditions noted above. -Pt has what sounds like stable angina at baseline. -Troponin trending down 14) Acute thrombocytopenia -Repeat labs in am 15) Prophylaxis -coumadin, PPI DVT Prophylaxis: Coumadin GI Prophylaxis: Protonix Resuscitation Status: Full Code - Time spent with patient Time with patient PN: 25 minutes - Physician Narrative Physician: Pamella Patel MD Narrative: Date: 07/17/17 Time: 0814 Hospital Course Summary Disclaimer: The visit summary below is not to be considered part of the above Progress Note.
--- NOTE | 2017-07-17 08:33 | Pharmacy Consult-Antibiotics ---
Pharmacy Consult-Vancomycin - Laboratory Information WBC 7.9 T/MM3 (4.5-11.0) D 07/17/17 04:10 BUN 28.0 MG/DL (7-17) H 07/17/17 04:10 Creatinine 1.0 MG/DL (0.7-1.2) D 07/17/17 04:10 - Consult Information VANCOMYCIN CONSULT: Dx: Sepsis Current Renal Function: S Cr = 1.0 mg/dl. Estimated Cr Cl ~ 50-60 mL/min Gave a Vancomycin bolus of 1,500 mg @ 2300 on 07/16 and will continue with Vancomycin 1,000 mg IV q12hrs. I ordered a Vancomycin trough @ 0800 on 07/18/ The pharmacy will continue to monitor and adjust regimen to maintain therapeutic levels. Thank you for the Protocol, Ciro Arugeta, Pharmacist. .
[2017-07-17] MEDS: CEFEPIME 1 GM in NS 50 ML IV SCH ×2 (09:24→20:17)
[2017-07-17] MEDS: CycloSPORINE 0.05% EYE DROPS 4ml EACH EYE SCH ×2 (09:25→20:19)
[2017-07-17] MEDS: WARFARIN 2 MG TABLET PO SCH (17:30)
[2017-07-17] MEDS: ATORVASTATIN 10 MG TABLET PO SCH (20:17)
[2017-07-18] MEDS: ACETAMINOPHEN 325 MG TABLET PO PRN ×4 (02:02→19:34)
[2017-07-18] MEDS: INSULIN ASPART 100unit/ml INJECTION SQ PRN ×4 (05:56→21:14)
--- NOTE | 2017-07-18 08:30 | Progress Note ---
- Date 07/18/17 Subjective: 72 y/o with history of Afib on warfarin, type II DM-insulin requiring, CAD with h/o stent x2 in 2013, HTN, HLP and DJD presented to the ED via EMS after being found on the floor by the pharmacy billing adjudicator who was delivering her meds. She reports that on she went to breakfast and almost fell but caught herself. This was a mechanical issue with her chair. She went home and called her friends and told them she would not be at [employer] that evening. She states she must have gone to bed but her memory is very poor after getting back home on . She thinks she got up wednesday to go to the bathroom and must have fallen although she does not recall this. She states her medications for wednesday am and noon were gone from the bubble pack so she must have taken them wednesday. Again, she has poor recall of events. She remembers waking up on the floor when the pharmacy billing adjudicator came to deliver her meds and 1730. She yelled for them to come in and EMS was called. Pt transported to ED. EMS found her to have a fever of 100.4. She had no obvious head trauma but has some bruising to the left hip. [facility] tells me that she has been having intermittent diarrhea for about a month but no in the last few days. She started having gross hematuria this past wednesday and wednesday. She knew she was getting a UTI so she started "flushing it out". By wed her bloody urine was much better but her urine was cloudy. She has been having angina with exertion relieved by rest. Her cracker off is Dr. Hyman. She was supposed to have a yearly follow up in Jun but has not scheduled it yet. She is short of air with exertion but not at rest. She denies N/V. She has been having a ANDREWS for the last couple of days. She has had some chills. No cough or sputum production. In ED her UA was + for leukocyte esterase and TNTC WBCs per HPF, her lactate was elevated at 3.2, glucose was 319, Cr was 1.3 and BUN was 31 and CK 1500 and troponin 0.327 though EKG showed no significant changes per ER report; INR was 2.5 and patient on warfarin. Patient started on IVF and given 3L NS in ER and started on Cefepime and vanco. XR of hip and pelvic showed no fx on prelim read and CT abd/pelvis on prelim read showed no acute process. Urine cx shows E coli, 1/2 blood cultures show E coli, the second is likely similar currently showing Gm neg rods. She is up in the chair this am. She reports feeling better today than yesterday. She is still having difficulty ambulating due to her hip pain. Her abd is feeling better. She still has not had a BM since admission. She is passing gas. She denies lightheadedness. She denies feeling SOA. No current CP. Her urine is clearing up. Objective Vital signs: Temperature 97.6 F 07/18/17 07:00 Pulse Rate 67 07/18/17 07:00 Respiratory Rate 26 H 07/18/17 07:00 Blood Pressure 142/67 H 07/18/17 06:07 Pulse Oximetry 97 07/18/17 07:00 Rhythm: Normal Sinus Rhythm Height/Weight/BMI: Height 1.55 m Weight 84.8 kg Body Mass Index 34.2 Comments: Gen: alert and oriented. NAD Skin: warm and dry, no rashes HEENT: NC/AT PERRL, EOMI, Sclera, lids and conjunctiva wnl. MMM. OP clear. Neck: Supple. No JVD, Carotids 2+without bruits. Lungs: diminished on the right base. Clear. No rales, rhonchi or wheezes CV: regular. 2/6 systolic murmur. No LE edema Abd: soft. Mildly TTP lower quadrants. No rebound or guarding. +BS MS: BURGESS, good strength and ROM. Neuro: no focal deficits. Results - Labs CBC & Chem 7: 07/18/17 04:10 07/18/17 04:10 Assessment and Plan Assessment and Plan: Assessment and Plan: 1) Acute Sepsis POA -Bandemia -Bacteremia, E coli in 1/2 bl cultures and probably in the second as it is not identified but is Gm - karolina -On cefepime and vanco IV 2) Acute UTI -On Cefepime and vanco IV -IVF -E coli in urine cx. 3) Acute Rhabdomyolysis -CK trending down -Renal function stable -DC IVF, encourage po intake 4) JASON-resolved 5) Hyperglycemia with Type II DM insulin requiring -B hydroxybuterate elevated suggestive of DKA -Home metformin on hold -SSI-continue to adjust 6) Acute Dehydration w/ low BP - 90s/50s-60s -DC IVF and encourage po intake -BP elevated, resume losartan 25mg daily -Continues on metoprolol 50mg BID 7) Acute Syncopal event suspected, though patient does not recall events of earlier today 8) Acute mental status changes /memory deficit as noted - patient is alert and oriented now and appropriate -Likely related to UTI 9) H/o AFib on warfarin -INR 2.19, pharmacy managing 10) HTN per history -On lopressor 50mg BID, losartan 25mg resuming today. 11) HLD -On a statin 12) CAD -H/O stents x2 in 2013, Dr. Hyman is her cracker off 13) Elevated troponin - likely demand ischemia d/t sepsis and other acute conditions noted above. -Pt has what sounds like stable angina at baseline. -Troponin trending down -will need to see her cracker off once discharged as she admits to angina prior to admission 14) Acute thrombocytopenia -Variable but still low -Follow labs 15) Prophylaxis -coumadin, PPI Will transfer to medical floor today. repeat blood cultures. Consult PT for strengthening and ambulation. - Physician Narrative Narrative: Date: 07/18/17 Time: 0826 Hospital Course Summary Disclaimer: The visit summary below is not to be considered part of the above Progress Note.
[2017-07-18] MEDS: CEFEPIME 1 GM in NS 50 ML IV SCH ×2 (08:53→21:09)
[2017-07-18] MEDS: DIGOXIN 250 MCG TABLET PO SCH (08:57)
[2017-07-18] MEDS: CALCIUM CARBONATE 600 MG TABLET PO SCH ×2 (08:58→17:21)
[2017-07-18] MEDS: FLUoxetine 20 MG CAPSULE PO SCH (08:58)
[2017-07-18] MEDS: ASPIRIN *EC* 81 MG TABLET PO SCH (08:58)
[2017-07-18] MEDS: CycloSPORINE 0.05% EYE DROPS 4ml EACH EYE SCH ×2 (08:59→21:20)
--- NOTE | 2017-07-18 09:31 | Pharmacy Consult-Antibiotics ---
Pharmacy Consult-Vancomycin - Laboratory Information WBC 7.2 T/MM3 (4.5-11.0) 07/18/17 04:10 BUN 23.0 MG/DL (7-17) H 07/18/17 04:10 Creatinine 0.9 MG/DL (0.7-1.2) 07/18/17 08:23 Vancomycin Trough 18.02 UG/ML (15-20) 07/18/17 08:23 - Consult Information VANCOMYCIN CONSULT: Vancomycin Trough = 18.0 mcg/ml. Today's SCr = 0.9 mg/dl. Will give Vancomycin 1000 mg IV q12hrs. Will continue to monitor and make adjustments accordingly. Thank you.
--- NOTE | 2017-07-18 09:39 | XRay Report ---
Indication: Weakness PROCEDURE: XR chest 1V: Encounter: Initial Comparison: None FINDINGS: The lungs are clear. There is no abnormal airspace opacity, pleural effusion or pneumothorax identified. The heart size and mediastinum are within normal limits. No significant skeletal abnormality is seen. IMPRESSION: No acute cardiopulmonary abnormality. .
--- NOTE | 2017-07-18 09:42 | CT Scan Report ---
Indication: Abd pain/diarrhea PROCEDURE: CT abdomen pelvis wo con: Encounter: Initial Comparison: None Technique: Axial CT images were performed through the abdomen and pelvis without intravenous contrast. Coronal and sagittal two-dimensional reformats. Automated Exposure Control and Iterative Reconstruction dose reducing techniques were utilized. Findings: Minimal atelectasis in the lung bases. The liver shows fatty infiltration. Gallbladder shows small gallstones or sludge. The spleen is at the upper limits of normal in size. The pancreas and adrenal glands are normal. Left-sided hydronephrosis and hydroureter due to obstructing left proximal ureteral stones. The largest stone on coronal image #25 measures 12 x 10 mm. Just above this is an additional 6 to 7 mm stone. No additional ureteral stones. Bladder is decompressed with a Sanchez catheter. Multiple pelvic phleboliths. Left renal cyst. No abdominal or pelvic adenopathy. Uterus is absent. No free fluid. Bone windows show degenerative change in the spine. Impression: 1. Obstructing large left proximal ureteral stones. Recommend urologic consultation. 2. Hepatic steatosis. 3. Cholelithiasis There is a preliminary report by [employer]. .
--- NOTE | 2017-07-18 09:45 | XRay Report ---
Indication: Fall with pelvic pain PROCEDURE: XR pelvis w/ 2 view BI hip: Encounter: Initial Comparison: July 29, 2016 Findings: Pelvis: There is no acute fracture, dislocation or malalignment identified. Bony demineralization limiting detection of nondisplaced fractures. Gas and stool projecting over the pubic symphysis causing apparently artifactual lucencies. Right hip: There is no acute fracture, dislocation or malalignment identified. Left hip: There is no acute fracture, dislocation or malalignment identified. Impression: No acute osseous abnormality. Given the bony demineralization if there is continued pain or clinical concern for fracture, MRI could be performed for further evaluation. .
[2017-07-18] MEDS: LOSARTAN 50 MG TABLET PO SCH (10:40)
--- NOTE | 2017-07-18 10:48 | XRay Report ---
INDICATION: SOA PROCEDURE: CHEST 2-VIEWS UPRIGHT (PA & LAT) Encounter: Initial COMPARISON: July 16, 2017 FINDINGS: The lungs are clear without evidence of focal abnormal airspace opacity. There is no pleural effusion or pneumothorax. The heart size, mediastinal contours and pulmonary vascularity are within normal limits. There is no significant skeletal abnormality. IMPRESSION: No acute cardiopulmonary disease. .
[2017-07-18] MEDS: NS 1,000 ML IV SCH ×2 (14:28)
[2017-07-18] MEDS: WARFARIN 2 MG TABLET PO SCH (17:21)
[2017-07-18] MEDS: ALPRAZolam 0.5 MG TABLET PO PRN (21:14)
[2017-07-18] MEDS: ATORVASTATIN 10 MG TABLET PO SCH (21:20)
[2017-07-19] MEDS: INSULIN ASPART 100unit/ml INJECTION SQ PRN ×4 (06:07→21:56)
[2017-07-19] MEDS: FLUoxetine 20 MG CAPSULE PO SCH (08:37)
[2017-07-19] MEDS: CALCIUM CARBONATE 600 MG TABLET PO SCH ×2 (08:37→19:00)
[2017-07-19] MEDS: CycloSPORINE 0.05% EYE DROPS 4ml EACH EYE SCH ×2 (08:37→20:29)
[2017-07-19] MEDS: DIGOXIN 250 MCG TABLET PO SCH (08:37)
[2017-07-19] MEDS: LOSARTAN 50 MG TABLET PO SCH (08:37)
[2017-07-19] MEDS: ASPIRIN *EC* 81 MG TABLET PO SCH (08:38)
[2017-07-19] MEDS: CEFEPIME 1 GM in NS 50 ML IV SCH (08:38)
--- NOTE | 2017-07-19 14:09 | Progress Note ---
- Date 07/19/17 Subjective: Mrs Santiago is seen today in follow-up. She is alert, oriented and pleasant. He reports she had a difficult morning, however, was able to take a nap and is now feeling better. She does describe having some lower extremity discomfort laterally. She does verbalize that while she was napping this morning. Physical therapy came into work with her and she felt confused or disoriented when she awoke. She states that she felt bad and she told the physical therapist to " give out". She asked for him to come back and see her this afternoon so she can apologize. She denies having chest pain, shortness of breath or GI concerns. Continued diminished appetite. Objective Vital signs: Temperature 98.9 F 07/19/17 11:31 Pulse Rate 63 07/19/17 11:31 Respiratory Rate 24 07/19/17 11:31 Blood Pressure 148/78 H 07/19/17 11:31 Pulse Oximetry 92 07/19/17 11:31 Rhythm: Normal Sinus Rhythm Height/Weight/BMI: Height 1.55 m Weight 85.4 kg Body Mass Index 34.2 - Constitutional Present: well nourished, well developed - Routine HEENT Exam Eye: Present: EOMI ENT: Present: mucous membranes moist, dentition normal - Routine Respiratory Exam Present: CTA bilaterally. Absent: wheezes - Routine Cardiovascular Exam Present: RRR, S1, S2. Absent: murmur - Routine Abdominal Exam Present: soft, normoactive bowel sounds, non distended. Absent: tenderness - Routine Extremities Exam Present: normal capillary refill - Routine Skin Exam Present: intact, dry, warm - Routine Neurological Exam Present: alert, oriented X3, CN II-XII intact, moving all extremities - Routine Lymphatic Exam Lymphatic: Absent: adenopathy - Routine Psychiatric Exam Present: normal affect Results - Labs CBC & Chem 7: 07/19/17 04:07 07/19/17 04:07 Microbiology Results: Microbiology 07/18/17 14:39 Peripheral/Iv Start Blood Culture - Preliminary Culture Initiated - Results Pending 07/18/17 14:45 Peripheral/Iv Start Blood Culture - Preliminary Culture Initiated - Results Pending Assessment and Plan (1) E coli bacteremia Current visit: Yes Status: Acute Assessment and Plan: Impression Acute Sepsis POA Bacteremia, E coli in 1/2 bl cultures and probably in the second as it is not identified but is Gm - karolina Acute UTI Acute Rhabdomyolysis Thrombocytopenia JASON-resolved Hyperglycemia with Type II DM insulin requiring Acute Dehydration w/ low BP - 90s/50s-60s Acute Syncopal event suspected, though patient does not recall events of earlier today Acute mental status changes /memory deficit as noted - patient is alert and oriented now and appropriate H/o AFib - chronic warfarin HTN Coronary artery disease. Hyperlipidemia CAD Plan Repeat blood cultures obtained yesterday afternoon. Continue on IV Vanco and cefepime for treatment of Escherichia coli bacteremia Continue to monitor blood pressure as it has intermittently been elevated. Currently on Cozaar, Lopressor, digoxin Monitor blood sugars, continue on sliding scale insulin, home metformin at home. Encourage continued work with PT and OT for strengthening. Patient is hopeful to be able to return to independent living at [facility] DVT Prophylaxis: SCD's Resuscitation Status: Full Code - Physician Narrative Physician: Sarahi Dobbs MD Narrative: Date: 07/19/17 Time: 1644 I have independently evaluated and examined this patient. I reviewed the chart, the patient's history, and the JOURNEY[employer] ELECTRICIAN/PA's documented findings as above. We discussed and formulated the assessment and plan as above with additions as below: Mrs. Santiago reports that she feels a little stronger overall today and that her appetite is a little better. She's been voiding without dysuria or hematuria and bladder control is improved compared to yesterday. 2/2 blood cultures from admission are positive for Escherichia coli as is urine culture; resistant to ampicillin and Bactrim. NAD, alert Respirations nonlabored, good airflow, breath sounds clear Abdomen benign. Discontinue vancomycin; convert cefepime to ceftriaxone. Repeat blood cultures pending but anticipate them to be negative. Patient will require 2 weeks of antibiotics for bacteremia. CT abdomen/pelvis reviewed by [id number] hydroureter with obstructing left proximal ureteral stone. Will require urology evaluation. d/w Dr. Lemos--> he will review films, patient may require percutaneous nephrostomy for decompression/drainage. shelter recommended-reassess tomorrow is clinically improving with treatment. Hospital Course Summary Disclaimer: The visit summary below is not to be considered part of the above Progress Note. Hospital Course: 2/5 Repeat blood cultures obtained yesterday afternoon. Continue on IV Vanco and cefepime for treatment of Escherichia coli bacteremia Continue to monitor blood pressure as it has intermittently been elevated. Currently on Cozaar, Lopressor, digoxin Monitor blood sugars, continue on sliding scale insulin, home metformin at home. Encourage continued work with PT and OT for strengthening. Patient is hopeful to be able to return to independent living at [facility]
[2017-07-19] MEDS: ACETAMINOPHEN 325 MG TABLET PO PRN (15:56)
[2017-07-19] MEDS ORDERED: CEFTRIAXONE 1 G in NS 100 ML IV SCH (16:45)
[2017-07-19] MEDS ORDERED: WARFARIN 2 MG TABLET PO SCH (17:00)
[2017-07-19] MEDS ORDERED: CEFTRIAXONE 1 G in NS 50 ML IV SCH (17:00)
[2017-07-19] MEDS ORDERED: PHYTONADIONE 5 MG/2.5 ML ORAL LIQUID PO ONE (17:16)
[2017-07-19] MEDS ORDERED: NS FLUSH BAG 500ml IV PRN (17:20)
[2017-07-19] MEDS: ATORVASTATIN 10 MG TABLET PO SCH (20:09)
[2017-07-19] MEDS: ALPRAZolam 0.5 MG TABLET PO PRN (21:53)
[2017-07-20] MEDS: ACETAMINOPHEN 325 MG TABLET PO PRN (00:49)
[2017-07-20] MEDS: INSULIN ASPART 100unit/ml INJECTION SQ PRN ×2 (06:24→12:05)
[2017-07-20 07:30] VITALS: RESP 16
[2017-07-20] MEDS: LOSARTAN 50 MG TABLET PO SCH (08:20)
[2017-07-20] MEDS: CycloSPORINE 0.05% EYE DROPS 4ml EACH EYE SCH (08:20)
[2017-07-20] MEDS: FLUoxetine 20 MG CAPSULE PO SCH (08:21)
[2017-07-20] MEDS: DIGOXIN 250 MCG TABLET PO SCH (08:21)
[2017-07-20] MEDS: CALCIUM CARBONATE 600 MG TABLET PO SCH (08:22)
[2017-07-20] MEDS: ASPIRIN *EC* 81 MG TABLET PO SCH (08:22)
--- NOTE | 2017-07-20 11:33 | Discharge Summary ---
Discharge Information Date of admission: 07/16/17 21:29 Anticipated date of discharge: 07/20/17 Attending Physician: Sarahi Dobbs MD Primary care physician: Alesia Sesay MD Consults: Consulting Provider: Duran Lemos Reason For Exam: obstructing nephrolithiasis - Discharge Diagnosis (1) Sepsis Status: Acute (2) E coli bacteremia Status: Acute (3) Hydronephrosis due to obstruction of ureter Status: Acute Acute Sepsis Bacteremia, E coli in 1/2 bl cultures and probably in the second as it is not identified but is Gm - karolina Escherichia coli UTI Left hydronephrosis/hydroureter with obstructing nephrolithiasis Acute Rhabdomyolysis Thrombocytopenia JASON-resolved Type II DM insulin requiring Acute Dehydration Acute syncope Acute mental status changes /memory deficit-DPOA H/o AFib - chronic warfarin HTN Coronary artery disease. Hyperlipidemia CAD - Procedures Procedures: None - Laboratory Labs: Admission labs on 07/16/17: WBC 15.8 with 71% neutrophils, 11% bands, hemoglobin 11.2, platelet count 136,000. INR 2.5. Electrolytes within normal limits except bicarbonate 19, BUN 31, creatinine 1.3, glucose 319, calcium 10.8, CPK 1419, troponin 0.327-0.304, digoxin 1.9 Lactic acid 3.2-1.3 07/20/17 03:49 07/20/17 03:49 INR at discharge 2.07 - Microbiology Blood cultures 2 drawn 07/16/17 positive for Escherichia coli resistant to ampicillin and trimethoprim/sulfamethoxazole; sensitive to remaining antibiotics including cefazolin, Levaquin, and aminoglycosides. Urine culture obtained 07/16/17 >100,000 CFU Escherichia coli with above sensitivities. 07/18/17 14:45 Peripheral/Iv Start Blood Culture - Preliminary No Growth After 1 Day 07/18/17 14:39 Peripheral/Iv Start Blood Culture - Preliminary No Growth After 1 Day - Radiology Radiology: Chest x-ray on 07/16/17 demonstrated no acute cardiopulmonary disease. Repeat chest x-ray on 07/18 was unchanged. 2 views of the pelvis and bilateral hips on 07/16/17 demonstrated no acute bony abnormalities however demineralization was present limiting detection of nondisplaced fracture. CT of the abdomen/pelvis without contrast on 07/16/17: Minimal atelectasis in the lung bases. The liver shows fatty infiltration. Gallbladder shows small gallstones or sludge. The spleen is at the upper limits of normal in size. The pancreas and adrenal glands are normal. Left-sided hydronephrosis and hydroureter due to obstructing left proximal ureteral stones. The largest stone on coronal image #25 measures 12 x 10 mm. Just above this is an additional 6 to 7 mm stone. No additional ureteral stones. Bladder is decompressed with a Sanchez catheter. Multiple pelvic phleboliths. Left renal cyst. No abdominal or pelvic adenopathy. Uterus is absent. No free fluid. Bone windows show degenerative change in the spine. Impression: 1. Obstructing large left proximal ureteral stones. Recommend urologic consultation. 2. Hepatic steatosis. 3. Cholelithiasis History of Present Illness HPI: Cecille is a 72 y/o w/ h/o AFib on warfarin, type II DM insulin requiring and other medical issues who presents to ED w/ generalized weakness and feeling as if she was going to fall since yesterday afternoon. She remembers going to bed late last night and did wake up this am around 10 AM and took her medications but tells me she has poor recall of all the events of the morning and was found on the floor late this afternoon around 1730 by a pharmacy retail support specialist who was bringing her meds to her. Patient recalls hearing the tech at the door but has no recall of events prior to that. She has no obvious head trauma but does have some bruising to the left hip. She has been having diarrhea intermittently x one month, more so last 3-4 days; she felt weak yesterday, had fever this evening when EMS arrived to her house of 100.4; She recalls having + hematuria earlier in the week, and also some recent chills as well. She denies cp, soa, sore throat, zurita, n/v and denies melena or hematochezia. In ED her UA was + for leukocyte esterase and TNTC WBCs per HPF, her lactate was elevated at 3.2, glucose was 319, Cr was 1.3 and BUN was 31 and CK 1500 and troponin 0.327 though EKG showed no significant changes per ER report; INR was 2.5 and patient on warfarin. Patient started on IVFS and given 3L NS in ER and started on Cefepime IV and blood and urine culture pending. XR of hip and pelvic showed no fx on prelim read and CT abd/pelvis on prelim read showed no acute process Patient admitted to the hospitalist service for further evaluation and management. At present patient is resting comfortably, feels better and is alert and oriented x 3 Objective Vital signs: Temperature 98.3 F 07/20/17 07:29 Pulse Rate 63 07/20/17 08:21 Respiratory Rate 16 07/20/17 07:29 Blood Pressure 153/72 H 07/20/17 07:29 Pulse Oximetry 95 07/20/17 07:29 NAD, alert Respirations nonlabored with good airflow and clear breath sounds Regular rhythm, S1-S2 Abdomen soft, nontender Residual bruising left flank Rhythm: Normal Sinus Rhythm (telemetry strips reviewed by myself) Height/Weight/BMI: Height 1.55 m Weight 82.2 kg Body Mass Index 34.2 Hospital Course This is a general summary of the patient's hospital course. For more details refer to the complete medical record. Hospital course: Mrs. Santiago was admitted to the acute medical service being found down without recollection of the fall although there was physical evidence of bruising at the left flank and a modestly elevated CPK. Sepsis criteria were present as well as pyuria. Chest x-ray was unremarkable. She was treated with high volume fluids for borderline blood pressures (systolics in the 90s on admission) and due to lactic acidosis and rhabdo on admission. Antibiotics were initiated with cefepime and vancomycin. By the following morning urine culture was positive for Escherichia coli and 1/ blood cultures was reported positive for Escherichia coli as well. Antibiotics were narrowed to ceftriaxone on 07/19 after repeat blood cultures drawn 07/18 were negative at 24 hours and based on sensitivities on the initial cultures. Blood pressure had stabilized at this time and usual antihypertensive regimen has been resumed. Platelet count was notably dropping on 07/17 and dropped progressively to a linden of 37 on 07/19 and remains low at discharge. Blood pressure has stabilized and home regimen was resumed. Review of CT abdomen/pelvis on 07/19 revealed left hydroureter due to an obstructing 12 x 10 mm mid ureteral stone. This finding was discussed with Dr. Jasmin Lemos who recommended percutaneous nephrostomy for drainage of the left kidney. Procedure cannot be performed at [facility] and transfer to the [facility] was coordinated on 07/20. Warfarin was held on 07/19 and a single 5 mg gram dose of vitamin K was given after lengthy discussion with the patient regarding anticipated procedure. Aspirin is on hold due to thrombocytopenia. The patient has absolutely no flank pain beyond minor discomfort she associates with bruising after the fall. She has no past knowledge of nephrolithiasis. She' s been afebrile since admission and leukocytosis has resolved on antibiotics. CT findings were discussed with Dr. Lemos on 07/19 and 07/20; transferred to [place] was his preference to permit greater range of urology interventions. Troponin was slightly elevated on admission without EKG changes consistent with demand ischemia due to her acute illness. No further workup was pursued during the hospitalization. The patient remained in sinus rhythm throughout the hospital stay and had no acute cardiac complaints. She was very apprehensive about holding warfarin for potential procedure and wants to discuss this with Dr. Hyman before proceeding. Metformin and insulin were held on admission with resultant hyperglycemia. Insulin was resumed with slightly reduced dosages accommodating hospital diet on the date of transfer. Metformin remains on hold. Patient was evaluated by physical therapy during her hospital stay in [facility] was recommended at discharge. Patient is typically a resident on the [facility] in [place] and there have been preliminary discussions with [facility] for return they are for skilled stay at discharge. Time spent with patient: discharge greater than 30 minutes Discharge Plan - Discharge Disposition Discharge Date: 07/20/17 *Condition: Improved Reason For Visit (Visit label in EMR): sepsis,uti,dehydration, DKA - Discharge Medications *Discharge Medications: New Ceftriaxone [Rocephin] 1 g IV Q24H vial Insulin Detemir [Levemir] 30 unit SQ HS vial Insulin Aspart [NovoLOG] 10 unit SQ TIDWM vial Continue Atorvastatin Calcium 10 mg PO HS #0 Calcium Carbonate 600 mg PO BIDBS #0 ALPRAZolam [Xanax] 0.5 mg PO DAILY PRN PRN Reason: Anxiety Cholecalciferol (Vitamin D3) [Vitamin D3] 1,000 unit PO DAILY Metoprolol Tartrate 50 mg PO BID Losartan Potassium 25 mg PO DAILY FLUoxetine [Prozac] 20 mg PO DAILY cycloSPORINE [Restasis Multidose] 1 drop EACH EYE BID Acetaminophen [Acetaminophen 8 Hour] 650 mg PO TID #0 Digoxin 250 mcg PO DAILY #0 Discontinued Metformin HCl [Metformin HCl ER] 500 mg PO BID Aspirin [Aspirin EC] 81 mg PO DAILY Warfarin Sodium [Warfarin Sodium] 4 mg PO SUSA@1700 Cyclobenzaprine [Flexeril] 10 mg PO TID Insulin Aspart [NovoLOG] 14 unit SQ TIDWM #0 Warfarin Sodium [Warfarin Sodium] 3 mg PO MOTUWETHFR@1700 No Action Insulin Detemir [Levemir Flextouch] 35 unit SQ HS - Referrals/Follow Up - Patient Handouts - Dismissal Complete Discharge Instructions are:: Complete Physician Narrative - Narrative Attestation Narrative: Date: 07/20/17 Time: 5276
[2017-07-20] MEDS ORDERED: INSULIN ASPART 100unit/ml INJECTION SQ SCH (12:00)
[2017-07-20 12:11] VITALS: BP 153/71; PULSE 59; TEMP 98.4; O2SAT 97
[2017-07-20] MEDS ORDERED: INSULIN DETEMIR 100unit/ml INJECTION SQ SCH (21:00)
== END 2017-07-20 12:57 | disposition short-term general hospital (02) | DRG 872 ==
LOC: ED 19:01 → CCU 21:29 → SUATTDRO 21:29 → CCU 21:54 → MED 07-18 13:31
PROVIDERS: ADMIT Internal Medicine; ATTEND Internal Medicine

== ENCOUNTER 2017-12-28 19:35 | Inpatient (IN) ==
[2017-12-28] MEDS ORDERED: SALINE FLUSH 10ml SYRINGE IVF PRN (19:53)
--- OUTSIDE RECORDS SUMMARY | 2017-12-28 19:58 | External Medical Summary ---
:1945 Author Organization [facility] Address [address] [place] [address] Care Team Providers Name Role Phone Alex Hyman Unavailable Unavailable PROBLEMS Type Condition ICD9-CM Code [id number] Onset Condition SNOMED Code Code Dates Status Problem Diabetes Mellitus, 250.00 Active 841906043 Type II, Not Stated As Uncontrolled Problem Hyperlipidemia E78.5 Active 65751061 Problem Essential (primary) I10 Active 30721774 hypertension Problem Cardiomyopathy, I42.9 Active 73875462 unspecified type Problem Mixed E78.2 Active 315158190 hyperlipidemia Problem Atrial fibrillation I48.91 Active 95280987 Problem CAD (coronary I25.10 Active 63351961 artery disease) Problem Type 2 diabetes E11.9 Active 109834959 mellitus without complications 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 765205707 use of anticoagulant Problem Pre-operative V72.81 Active 294614042 cardiovascular examination Problem Hypertension, 401.1 Active 34403630 Benign Problem Chest pain 786.50 Active 82384954 Problem Dyslipidemia 272.4 Active 078403599 Problem CAD 414.01 Active 15764653 Problem Coronary Artery 414.01 Active 27560815 Disease Problem Dyslipidemia 272.4 Active 231741425 Problem Atrial fibrillation 427.31 Active 44298542 ALLERGIES No Information ENCOUNTERS Encounter Location Date Diagnosis [address] Feb, [address] [place] [address] [facility] [address] [place] [address] Aug, Atrial fibrillation I48.[address] [address] [facility] [address] [place] [address] Aug, CAD ([facility] [address] [place] [address] disease) I25.10 ; Atrial [address] fibrillation I48.91 ; Cardiomyopathy, unspecified type I42.9 ; [facility] current use of anticoagulant Z79.01 ; Essential (primary) hypertension I10 ; Mixed hyperlipidemia E78.2 and Type 2 diabetes mellitus without complications E11.9 [facility] [address] [facility] [address] [facility] Aug, CAD (coronary artery [address] disease) I25.10 ; Essential [address] (primary) hypertension I10 and Atrial fibrillation I48.91 [facility] [address] [place] [address] 20 Aug, 2017 Atrial fibrillation I48.91 ; [address] [facility] [place] [address] anticoagulant Z79.01 ; CAD (coronary artery disease) I25.10 ; Essential (primary) hypertension I10 ; Mixed hyperlipidemia E78.2 and Type 2 diabetes mellitus without complications E11.[address] Feb, Atrial fibrillation I48.91 ; [address] steam clean [place] [address] anticoagulant Z79.01 ; CAD (coronary artery disease) I25.10 ; Essential (primary) hypertension I10 ; Mixed hyperlipidemia E78.2 and Type 2 diabetes mellitus without complications E11.[address] Nov, Atrial fibrillation I48.91 ; [address] steam clean [place] [address] anticoagulant Z79.01 ; CAD (coronary artery disease) I25.10 ; Hyperlipidemia E78.5 ; Essential (primary) hypertension I10 and DM (diabetes mellitus) E11.[address] Nov, CAD (coronary artery [address] disease) I25.10 [address] [facility] [address] [place] [address] Nov, [address] [address] [facility] [address] [place] [address] Nov, [address] [address] [facility] [address] [place] [address] Nov, Atrial fibrillation 427.31 ; [address] Chronic Anticoagulation [address] V58.61 ; Coronary Artery Disease 414.01 ; Dyslipidemia 272.4 ; Hypertension, Benign 401.1 and Diabetes Mellitus, Type II, Not Stated As Uncontrolled 250.00 [facility] [address] [place] [address] October, [address] [address] October, Atrial fibrillation 427.[address] [address] [facility] [address] [place] October, Atrial fibrillation 427.31 ; [facility] [address] [place] [address] Coronary Artery Disease [address] 414.01 ; Dyslipidemia 272.4 ; Hypertension, Benign 401.1 and Diabetes Mellitus, Type II, Not Stated As Uncontrolled 250.00 [facility] [address] [place] Aug, [address] [address] [facility] [address] [place] Aug, [facility] [address] [place] [address] 414.01 ; Dyslipidemia 272.4 [address] and Hypertension, Benign 401.1 [facility] [address] [place] Jul, [facility] [address] [place] [address] 414.01 ; Pre-operative [address] cardiovascular examination V72.81 ; Dyslipidemia 272.4 and Hypertension, Benign 401.1 [facility] [address] [place] Jul, CAD 414.[address] [place] [address] [facility] [address] [place] Jul, [address] [address] [facility] [address] [place] Jul, [address] [address] [facility] [address] [place] Jun, [facility] [address] [place] [address] 414.01 ; Dyslipidemia 272.4 [address] and Hypertension, Benign 401.1 [facility] [address] [place] Nov, [address] [address] [facility] [address] [place] May, [address] [place] [address] [facility] [address] [place] Jan, [address] [place] [address] [facility] [address] [place] Jan, [address] [place] [address] [facility] [address] [place] Dec, [address] [place] [address] [facility] [address] [place] Nov, [address] [place] [address] Nov, [facility] [address] [place] [phone] Nov, [facility] [address] [place] [address] Nov, Chest pain 786.50 ; [facility] [address] [place] [address] Artery Disease 414.01 ; [address] Dyslipidemia 272.4 and Hypertension, Benign 401.[address] Nov, CAD 414.01 ; [facility] [address] [place] 786.[address] ; Dyslipidemia 272.4 [address] and Hypertension 401.[address] Nov, CAD 414.01 ; [facility] [address] [place] [address] 786.50 ; Dyslipidemia 272.4 [address] and Hypertension 401.[address] Nov, [facility] [address] [place] [address] Jul, CAD 414.01 ; [facility] [address] [place] [address] 272.4 ; Hypertension, Benign [address] 401.1 and Pre-operative cardiovascular examination V72.[address] Jun, [address] [address] Jun, Chest pain 786.50 ; [facility] [address] [place] [address] Dyslipidemia 272.4 ; [address] Hypertension, Benign 401.1 and Pre-operative cardiovascular examination V72.81 IMMUNIZATIONS No Known Immunizations SOCIAL HISTORY Never Assessed REASON FOR VISIT refill [facility] PLAN OF CARE VITAL SIGNS MEDICATIONS Medication Instructions Dosage Frequency Start End Date Duration Status Date Digoxin 0.25 MG Orally Once a day 1 /2tablet 24h 30 days Active RESULTS No Results PROCEDURES No Known procedures INSTRUCTIONS MEDICATIONS ADMINISTERED No Known Medications MEDICAL (GENERAL) HISTORY Type Description Date Medical History Diabetes mellitus Medical History Arthritis Medical History Atrial fibrillation during prior surgeries Medical History Dyslipidemia Medical History Chest pain Medical History Coronary Artery Disease (CAD) Surgical History Knee surgery left Surgical History Knee surgery, right Surgical History Appendectomy Surgical History Hysterectomy Surgical History Cyst removal Surgical History Tonsillectomy Surgical History ankle surgery Surgical History kidney surgery Surgical History Stent placement
--- OUTSIDE RECORDS SUMMARY | 2017-12-28 19:58 | External Medical Summary | Referral Summary ---
:1945 Author Organization [facility] Address [address] [place] [address] Care Team Providers Name Role Phone Sarahi Dobbs Primary Care Physician Encounter VC Date(s): 07/20/17 - 07/22/17 [facility] [address], [place] [address] Encounter Diagnosis Ureterolithiasis (Discharge Diagnosis) - 07/22/17 Complicated UTI (urinary tract infection) (Discharge Diagnosis) - 07/22/17 Normocytic anemia (Discharge Diagnosis) - 07/22/17 Thrombocytopenia (Discharge Diagnosis) - 07/22/17 Hypertension (Discharge Diagnosis) - 07/22/17 Paroxysmal atrial fibrillation (Discharge Diagnosis) - 07/22/17 Type 2 diabetes mellitus (Discharge Diagnosis) - 07/22/17 Discharge Disposition: 01-Home or Self Care Attending Physician: Raissa Rhodes MD Admitting Physician: Pau Boone MD Vital Signs Most recent to oldest [Reference Range]: 1 Temperature Oral [35.8-37.3 degC] 36.5 degC (07/22/17 11:00 AM) Temperature Rectal [36.3-37.8 degC] 36.5 degC (07/21/17 11:45 AM) Apical Heart Rate [60-100 bpm] 56 bpm *LOW* (07/22/17 12:54 PM) Peripheral Pulse Rate [60-100 bpm] 61 bpm (07/22/17 11:00 AM) Heart Rate Monitored [60-100 bpm] 68 bpm (07/21/17 10:55 AM) Respiratory Rate [14-20 br/min] 18 br/min (07/22/17 11:00 AM) Blood Pressure [90-140/60-90 mmHg] 135/79 mmHg (07/22/17 11:00 AM) SpO2 95 % (07/22/17 11:00 AM) Remote Telemetry Ongoing (07/22/17 12:54 PM) Problem List Condition Effective Dates Status Health Status Informant Hypertension(Confirmed) Active Normocytic anemia(Confirmed) Active Paroxysmal atrial Active fibrillation(Confirmed) Type 2 diabetes mellitus(Confirmed) Active Allergies, Adverse Reactions, Alerts Substance Reaction Severity Status JAISON inhibitors Active Medications acetaminophen 650 mg oral tablet, extended release 650 mg 1 tabs, Oral, q8hr, 0 Refill(s) Start Date: 07/20/17 Status: Orderedaspirin 81 mg oral tablet 81 mg 1 tabs, Oral, Daily, # 30 tabs, 0 Refill(s) Start Date: 07/20/17 Status: Orderedatorvastatin 10 mg oral tablet 10 mg 1 tabs, Oral, Bedtime (once a day), # 30 tabs, 0 Refill(s) Start Date: 07/20/17 Status: Orderedcalcium (as carbonate) 600 mg oral tablet 600 mg 1 tabs, Oral, BID, # 60 tabs, 0 Refill(s) Start Date: 07/20/17 Status: Orderedcyclobenzaprine 10 mg oral tablet 10 mg 1 tabs, Oral, TID, # 30 tabs, 0 Refill(s) Start Date: 07/20/17 Status: OrderedD3 1000 1,000 Intl_Units, Oral, Daily, 0 Refill(s) Start Date: 07/20/17 Status: Ordereddigoxin 250 mcg (0.25 mg) oral tablet 250 mcg 1 tabs, Oral, Daily, # 30 tabs, 0 Refill(s) Start Date: 07/20/17 Status: Orderedferrous sulfate 325 mg (65 mg elemental iron) oral delayed release tablet 325 mg 1 tabs, Oral, Daily, # 30 tabs, 0 Refill(s), Pharmacy: [facility], 1 tabs Oral Daily,x30 days Start Date: 07/22/17 Stop Date: 08/21/17 Status: OrderedFLUoxetine 20 mg oral capsule 20 mg 1 caps, Oral, Daily, # 30 caps, 0 Refill(s) Start Date: 07/20/17 Status: OrderedKeflex 500 mg oral capsule 500 mg 1 caps, Oral, TID, X 21 days, # 63 caps, 0 Refill(s), Pharmacy: [facility], 1 caps Oral TID,x21 days Start Date: 07/22/17 Stop Date: 08/12/17 Status: OrderedLevemir 100 units/mL subcutaneous solution 35 units, SubCutaneous, Bedtime (once a day), 0 Refill(s) Start Date: 07/22/17 Status: Orderedlosartan 50 mg oral tablet 50 mg 1 tabs, Oral, Daily, # 30 tabs, 0 Refill(s), Pharmacy: [facility], 1 tabs Oral Daily,x30 days Start Date: 07/22/17 Stop Date: 08/21/17 Status: OrderedmetFORMIN 500 mg oral tablet, extended release 500 mg 1 tabs, Oral, BID, # 30 tabs, 0 Refill(s) Start Date: 07/20/17 Status: Orderedmetoprolol tartrate 50 mg oral tablet 50 mg 1 tabs, Oral, BID, # 60 tabs, 0 Refill(s) Start Date: 07/20/17 Status: OrderedNovoLOG 100 units/mL subcutaneous solution 14 units, SubCutaneous, TIDWM, 0 Refill(s) Start Date: 07/22/17 Status: OrderedRestasis 2 drops, Eye-Both, BID, 0 Refill(s) Start Date: 07/20/17 Status: Ordered Results Hematology Most recent to oldest [Reference Range]: 1 WBC [4.8-10.8 10*3/uL] 8.1 10*3/uL (07/22/17 6:29 AM) RBC [4.00-5.20] 3.73 *LOW* (07/22/17 6:29 AM) Hgb [12.0-16.0 gm/dL] 10.6 gm/dL *LOW* (07/22/17 6:29 AM) Hct [37.0-47.0 %] 33.1 % *LOW* (07/22/17 6:29 AM) MCV [82.0-99.0 fL] 88.7 fL (07/22/17 6:29 AM) MCH [27.0-32.0 pg] 28.4 pg (07/22/17 6:29 AM) MCHC [32.0-36.0 gm/dL] 32.0 gm/dL (07/22/17 6:29 AM) RDW [11.5-14.5 %] 14.2 % (07/22/17 6:29 AM) Platelet [150-400 10*3/uL] 61 10*3/uL 1 *LOW* (07/22/17 6:29 AM) MPV [9.4-12.4 fL] 12.6 fL *HI* (07/22/17 6:29 AM) Immature Granulocytes [0.0-1.0 %] 2.1 % *HI* (07/22/17 6:29 AM) Neutrophils [51-75 %] 50 % *LOW* (07/22/17 6:29 AM) Lymphocytes [20-46 %] 29 % (07/22/17 6:29 AM) Monocytes [4-11 %] 14 % *HI* (07/22/17 6:29 AM) Eosinophils [0-4 %] 3 % (07/22/17 6:29 AM) Basophils [0-2 %] 1 % (07/22/17 6:29 AM) Neutro Absolute [1.90-7.00] 4.09 (07/22/17 6:29 AM) Lymph Absolute [0.80-3.30] 2.37 (07/22/17 6:29 AM) [place] Absolute [0.30-1.00] 1.16 *HI* (07/22/17 6:29 AM) Eos Absolute [0.00-0.50] 0.26 (07/22/17 6:29 AM) Baso Absolute [0.00-0.20] 0.08 (07/22/17 6:29 AM) Nucleated RBC Automated [0 /100 WBC] 0.0 /100 WBC (07/22/17 6:29 AM) Differential Scanned Slide (07/22/17 6:29 AM) Reticulocyte [0.6-2.5 %] 1.0 % (07/21/17 3:17 AM) Smear Review By Pathologist See pathology (07/21/17 3:17 AM) 1Result Comment: Platelet count may be higher due to platelet clumping on smear.Coagulation Most recent to oldest [Reference Range]: 1 INR [0.9-1.2] 1.2 (07/22/17 6:29 AM) PTT [25.0-35.0 seconds] 27.4 seconds (07/21/17 5:43 PM) Fibrinogen Lvl [187-520 mg/dL] 442 mg/dL (07/21/17 5:43 PM) Chemistry Most recent to oldest [Reference Range]: 1 Sodium Lvl [136-144 mEq/L] 140 mEq/L (07/22/17 6:29 AM) Potassium Lvl [3.6-5.1 mEq/L] 3.0 mEq/L *LOW* (07/22/17 6:29 AM) Chloride [99-109 mEq/L] 108 mEq/L (07/22/17 6:29 AM) CO2 [22-32 mEq/L] 24 mEq/L (07/22/17 6:29 AM) AGAP [3-20 mEq/L] 8 mEq/L (07/22/17 6:29 AM) BUN [4-20 mg/dL] 6 mg/dL (07/22/17 6:29 AM) Glucose Lvl [70-100 mg/dL] 72 mg/dL (07/22/17 6:29 AM) Creatinine Lvl [0.44-1.03 mg/dL] 0.72 mg/dL (07/22/17 6:29 AM) eGFR [>60 mL/min] >60 mL/min 1 (07/22/17 6:29 AM) Calcium Lvl [8.6-10.0 mg/dL] 7.2 mg/dL *LOW* (07/22/17 6:29 AM) Albumin Lvl [3.5-4.8 gm/dL] 2.3 gm/dL *LOW* (07/22/17 6:29 AM) Total Protein [6.1-7.9 gm/dL] 5.2 gm/dL *LOW* (07/22/17 6:29 AM) Globulin [1.9-4.3 gm/dL] 2.9 gm/dL (07/21/17 3:17 AM) ALT [14-54 U/L] 34 U/L (07/22/17 6:29 AM) AST [15-41 U/L] 53 U/L *HI* (07/22/17 6:29 AM) Alk Phos [26-104 U/L] 85 U/L (07/22/17 6:29 AM) Bili Total [0.2-1.2 mg/dL] 0.6 mg/dL 2 (07/22/17 6:29 AM) Bili Direct [0.0-0.2 mg/dL] 0.2 mg/dL (07/22/17 6:29 AM) Bili Indirect [0.0-1.0 mg/dL] 0.4 mg/dL (07/22/17 6:29 AM) Iron [50-170 mcg/dL] 43 mcg/dL 3 *LOW* (07/21/17 3:17 AM) TIBC [286-569 mcg/dL] 213 mcg/dL *LOW* (07/21/17 3:17 AM) Iron Sat [11-46 %] 20 % (07/21/17 3:17 AM) Transferrin [192-382 mg/dL] 143 mg/dL *LOW* (07/21/17 3:17 AM) Ferritin Lvl [11-307 ng/mL] 169 ng/mL (07/21/17 3:17 AM) Magnesium Lvl [1.8-2.5 mg/dL] 1.4 mg/dL *LOW* (07/22/17 6:29 AM) Phosphorus [2.4-4.7 mg/dL] 1.8 mg/dL 4 *LOW* (07/22/17 6:29 AM) Total CK [38-234 U/L] 497 U/L *HI* (07/22/17 6:29 AM) Blood Glucose, Capillary [70-100 mg/dL] 135 mg/dL *HI* (07/22/17 3:49 PM) Hep A IgM Negative (07/22/17 6:29 AM) Hep Bs Ag Negative (07/22/17 6:29 AM) Hep C Ab Negative (07/22/17 6:29 AM) Hep B Core IgM Negative (07/22/17 6:29 AM) HIV 1 and 2 Abs Negative (07/22/17 6:29 AM) 1Result Comment: Multiply eGFR results by 1.21 for race.2Result Comment: Naproxen, specifically the metabolite O-desmethylnaproxen, may cause spurious elevation in Total Bilirubin levels.3Result Comment: Hemolyzed specimen. The following tests may be affected: ALT, AST, Ammonia, Iron, Potassium, LDH, Amylase, CPK, and Total Bilirubin.4Result Comment : High dosages of liposomal Amphotericin B (AmBisome) therapy or other drug preparations that use a liposomal envelope to facilitate drug delivery may cause falsely elevated results for phosphorus. Procedures Procedure Date Related Diagnosis Body Site Status Placement of nephroureteral catheter, 07/21/17 Completed percutaneous, including diagnostic nephrostogram and/or ureterogram when performed, imaging guidance (eg, ultrasound and/or fluoroscopy) and all associated radiological supervision and interpretation, new access Social History Social History Type Response Smoking Status Never (less than 100 in lifetime) entered on: 07/20/17
[2017-12-28] MEDS ORDERED: BUPIVACAINE 0.5% (5mg/ml) PF 30ml INJ SDV ID ONE (21:01)
[2017-12-28] MEDS ORDERED: NS 1,000 ML IV ONE (21:12)
--- NOTE | 2017-12-28 21:16 | Emergency Department Report ---
Trauma HPI - General Chief Complaint: Trauma Stated Complaint: Forehead lac lower back pain shoulder pain Time Seen by Provider: 12/28/17 19:51 Source: patient, EMS Mode of arrival: EMS Limitations: altered mental status - History of Present Illness HPI narrative: Patient has apparently been having multiple falls at home, she has felt as though she stands up too quickly, gets dizzy and then falls down. Today the patient was confused after her fall, thinking that she slipped on blood from lacerations to her face, but was unable to say when she fell and lacerated her face. Patient lives in the independent living section at a nursing care facility , and apparently called assistants who then called EMS. Patient currently complains of generalized headache, neck pain, right shoulder pain, right pelvis/hip pain. Patient was brought by [facility] with somewhat minimized complaints in route, but when the patient arrived, her complaints seemed much greater. - Related Data Home Medications Medication Instructions Recorded Confirmed Acetaminophen [Acetaminophen 8 650 mg PO TID #0 07/28/16 12/28/17 Hour] Atorvastatin Calcium 10 mg PO HS #0 07/28/16 12/28/17 Calcium Carbonate 600 mg PO BIDBS #0 07/28/16 12/28/17 Digoxin 125 mcg PO NOON #0 07/28/16 12/28/17 ALPRAZolam [Xanax] 0.5 mg PO DAILY PRN 07/16/17 12/28/17 Cholecalciferol (Vitamin D3) 1,000 unit PO DAILY 07/16/17 12/28/17 [Vitamin D3] FLUoxetine [Prozac] 20 mg PO DAILY 07/16/17 12/28/17 Metoprolol Tartrate 50 mg PO BID 07/16/17 12/28/17 cycloSPORINE [Restasis Multidose] 1 drop EACH EYE BID 07/16/17 12/28/17 Ferrous Sulfate 325 mg PO MOWEFR@1700 08/02/17 12/28/17 Insulin Aspart [NovoLOG] 15 unit SQ AC 08/02/17 12/28/17 Insulin Detemir [Levemir] 38 unit SQ HS 08/02/17 12/28/17 Aspirin [Aspirin EC] 81 mg PO DAILY 12/28/17 12/28/17 Cyclobenzaprine [Flexeril] 10 mg PO TID 07/17/18 07/17/18 Losartan [Cozaar] 50 mg PO DAILY 12/28/17 12/28/17 Metformin HCl [Metformin HCl ER] 500 mg PO BID 12/28/17 12/28/17 Warfarin Sodium 3 mg PO SUMOTUWEFRSA 12/28/17 12/28/17 Warfarin Sodium 4 mg PO TH 12/28/17 12/28/17 Previous Rx's Medication Instructions Recorded Tamsulosin [Flomax] 0.4 mg PO HS #28 cap 08/02/17 Tramadol [Ultram] 50 mg PO Q6HR PRN #20 tab 08/02/17 Allergies Allergy/AdvReac Type Severity Reaction Status Date / Time JAISON Inhibitors AdvReac Intermediate Cough Verified 12/28/17 20:21 Review of Systems All systems: reviewed and negative except as stated PFSH Patient Stated Medical History Dementia Yes Cataracts Yes Other HEENT Yes: WEARS GLASSES Cardiac Arrhythmia Yes: A-FIB Hypertension Yes Myocardial Infarction Yes: stent x1 Sleep Apnea No Other Respiratory Yes: SOA Diabetes Mellitus Type 1 Yes Diabetes Mellitus Type 2 Yes Cirrhosis No Gastroesophageal Reflux No Disease Gastrointestinal Bleeding No Hepatitis No Hiatal Hernia No Obstructive Bowel No Ulcer No Other GI No Hx Incontinence Yes: FREQUENCY Hx Kidney Stones Yes Hx Renal Disease No Clotting Problems Yes: COUMADIN Osteoarthritis Yes: back MRSA Yes: 1994 Depression Yes Ovarian Cysts Yes Medical History Updates: Anxiety. A-fib. HLD. HTN. Osteoporosis. Depression. Type II DM insulin requiring Family History Updates: No significant updates to family hx reported - Social History Smoking status: Never smoker Substance use type: does not use Current residence: Apartment/Private Home Physical Exam - Limitations Limitations: altered mental status (vision is mildly confused) - General General appearance: alert - Normal Exams: Eyes:: Pupils are PERRLA w/ EOMI, No scleral icterus, irritation, or foreign bodies noted ENMT:: No facial trauma, nasal exudates, pharyngeal erythema, or exudates are noted Chest/Respirations:: Clear all weiner, with good airflow, and symmetry bilaterally Cardiovascular:: Regular rate and rhythm, without murmur or gallop, Pulses 2+ all extremities, capillary refill, <2 seconds all extremities Abdomen:: Bowel sounds positive, soft, non-tender, non-distended, no hepatosplenomegaly, masses or bruits noted Lymphatic:: No lymphadenopathy, or lymphedema noted Integumentary:: No rashes, hives, or bruising noted, hair and nails, without abnormality Neurological:: Patient is alert, and oriented, cranial nerves, motor/sensory/ cerebellar, exams w/o gross deficits, to observation Psychiatric:: Patient exhibits, appropriate attention, emotion and affect - Head Head exam: other (patient has multiple contusions and 2 1.5cm lacerations to the right eyebrow/forehead/temporal region with significant dried blood all over her scalp and face.) - Neck Neck exam: Present: normal inspection, full ROM, trachea midline, tenderness ( mild low C-spine tenderness midline). Absent: meningismus, lymphadenopathy, thyromegaly - Extremities Exam Extremities exam: Present: full ROM, tenderness (mild right diffuse shoulder tenderness, no deformity, no decreased range of motion), normal capillary refill. Absent: pedal edema, joint swelling, calf tenderness - Back Exam Back exam: Present: tenderness (lumbar tenderness midline) - Skin Skin exam: Present: other (multiple areas of contusions of various ages) Procedures - Laceration Laceration 1 Site: face Side (If applicable): right Size (cm): 3 (2 separate lacerations, 1.5 cm total over the right eyebrow) Description: linear, irregular, clean (active bleeding) Depth: simple, single layer Local Anesthetic: bupivacaine 0.5% Amount of anesthesia used (mL): 4 Pre-repair: wound explored, irrigated extensively, deep structures intact, extensive debridement Skin layer closed with: nylon Size (cm): 4-0 Number of sutures: 7 Trauma - MDM Narrative Medical decision making narrative: CT head shows external injury only, patient does have a 2 x 2 centimeter heavily calcified nodule midline falx region consistent with ceci-falcine meningioma. Appears chronic, CT C-spine is normal, CT L-spine shows compression fracture of L2 of uncertain age. No prior films show L2 fracture from the past. So the decision that this is an acute L2 fracture. CBC shows elevated white blood cell count with moderate left shift, positive bandemia Lactate is elevated at 2.4. 1 L normal saline IV fluid bolus is initiated for possible sepsis After further review of systems, patient admits that she's been having frequent urination but without dysuria for 5-7 days. Blood cultures are drawn CXR - no acute changes UA - shows significant urinary tract infection with large numbers of white cells , visible bacteria, proteins, leukocyte esterase, and small amount of red blood cells and protein. Patient started on Levaquin 750 mg IV We will admit for urosepsis and L2 fracture secondary to fall, to Dr. Irving Han - Lab Data Result diagrams: 12/28/17 19:53 12/28/17 19:53 Lab Results 12/28/17 12/28/17 12/28/17 Range/Units 19:53 19:53 19:53 WBC 13.4 H (4.5-11.0) T/MM3 RBC 4.42 (4.00-5.20) M/MM3 Hgb 12.9 (12-16) GM/DL Hct 38.5 (36-46) % MCV 87.1 (80-100) UM3 MCH 29.2 (26-34) UUG MCHC 33.5 (31-37) GM/DL RDW Std Deviation 41.5 (36.9-50.2) FL Plt Count 22 L* (130-400) T/MM3 MPV 11.0 (9.4-12.4) UM3 Immature Gran % (Auto) Not performed Neut % (Auto) Not performed Lymph % (Auto) Not performed [place] % (Auto) Not performed Eos % (Auto) Not performed Baso % (Auto) Not performed Neut # (Auto) Not performed Lymph # (Auto) Not performed [place] # (Auto) Not performed Eos # (Auto) Not performed Baso # (Auto) Not performed Abs Immat Gran (auto) Not performed Neutrophils % (Manual) 69.0 H (33-66) % Band Neutrophils % 13.0 H (0-6) % Lymphocytes % (Manual) 10.0 L (23-45) % Monocytes % (Manual) 6.0 (0-9.0) % Eosinophils % (Manual) 2.0 (0-4) % Neutrophils # (Manual) 9.2 H (1.8-7.7) T/MM3 Band Neutrophils # 1.7 T/MM3 Lymphocytes # (Manual) 1.3 (1-4.8) T/MM3 Monocytes # (Manual) 0.8 (0-0.8) T/MM3 Eosinophils # (Manual) 0.3 (0-0.5) T/MM3 RBC Morph Comment Normal INR 2.36 H (0.92-1.18) Turbidity < 20 (0-20) Sodium 136 (136-146) MEQ/L Potassium 4.2 (3.6-5) MEQ/L Chloride 101 (98-107) MEQ/L Carbon Dioxide 20 L (22-30) MEQ/L Anion Gap 15 (5-15) meq/L BUN 16.0 (7-17) MG/DL Creatinine 0.9 (0.7-1.2) mg/dL GFR Calculation 62 BUN/Creatinine Ratio 18 (6-26) RATIO Glucose 287 H (65-110) MG/DL Calculated Osmolality 273 (261-280) MOSM/KG Calcium 9.9 (8.4-10.2) MG/DL Total Bilirubin 1.40 H (0.20-1.30) MG/DL Conjugated Bilirubin 0.00 (0.00-0.30) mg/dL Unconjugated Bilirubin 1.10 (0.00-1.1) mg/dL Icterus Index < 2 (0-7) AST 40 H (14-36) U/L ALT 31 (1-35) U/L Alkaline Phosphatase 88 (38-126) U/L Total Protein 7.3 (6.3-8.2) g/dL Albumin 4.3 (3.5-5.0) g/dL Globulin 3.0 (2.4-3.6) G/DL Albumin/Globulin Ratio 1.4 (1.1-2.2) RATIO Plasma Lactate TNP Procalcitonin NG/ML Specimen Hemolysis < 15 (0-25) 12/28/17 12/28/17 Range/Units 19:53 20:19 WBC (4.5-11.0) T/MM3 RBC (4.00-5.20) M/MM3 Hgb (12-16) GM/DL Hct (36-46) % MCV (80-100) UM3 MCH (26-34) UUG MCHC (31-37) GM/DL RDW Std Deviation (36.9-50.2) FL Plt Count (130-400) T/MM3 MPV (9.4-12.4) UM3 Immature Gran % (Auto) Neut % (Auto) Lymph % (Auto) [place] % (Auto) Eos % (Auto) Baso % (Auto) Neut # (Auto) Lymph # (Auto) [place] # (Auto) Eos # (Auto) Baso # (Auto) Abs Immat Gran (auto) Neutrophils % (Manual) (33-66) % Band Neutrophils % (0-6) % Lymphocytes % (Manual) (23-45) % Monocytes % (Manual) (0-9.0) % Eosinophils % (Manual) (0-4) % Neutrophils # (Manual) (1.8-7.7) T/MM3 Band Neutrophils # T/MM3 Lymphocytes # (Manual) (1-4.8) T/MM3 Monocytes # (Manual) (0-0.8) T/MM3 Eosinophils # (Manual) (0-0.5) T/MM3 RBC Morph Comment INR (0.92-1.18) Turbidity (0-20) Sodium (136-146) MEQ/L Potassium (3.6-5) MEQ/L Chloride (98-107) MEQ/L Carbon Dioxide (22-30) MEQ/L Anion Gap (5-15) meq/L BUN (7-17) MG/DL Creatinine (0.7-1.2) mg/dL GFR Calculation BUN/Creatinine Ratio (6-26) RATIO Glucose (65-110) MG/DL Calculated Osmolality (261-280) MOSM/KG Calcium (8.4-10.2) MG/DL Total Bilirubin (0.20-1.30) MG/DL Conjugated Bilirubin (0.00-0.30) mg/dL Unconjugated Bilirubin (0.00-1.1) mg/dL Icterus Index (0-7) AST (14-36) U/L ALT (1-35) U/L Alkaline Phosphatase (38-126) U/L Total Protein (6.3-8.2) g/dL Albumin (3.5-5.0) g/dL Globulin (2.4-3.6) G/DL Albumin/Globulin Ratio (1.1-2.2) RATIO Plasma Lactate 2.4 H Procalcitonin 0.13 NG/ML Specimen Hemolysis (0-25) Critical Care Time Critical Care Time: Yes Total Critical Care Time: 50 Attestation: Patient was extremely complex and required aggressive immediate intervention for both trauma as well as sepsis. Disposition Clinical Impression: Traumatic injury Sepsis Qualifiers: Sepsis type: sepsis due to unspecified organism Qualified Code(s): A41.9 - Sepsis, unspecified organism Urinary tract infection Qualifiers: Urinary tract infection type: acute cystitis Hematuria presence: without hematuria Qualified Code(s): N30.00 - Acute cystitis without hematuria Facial laceration Qualifiers: Encounter type: initial encounter Qualified Code(s): S01.81XA - Laceration without foreign body of other part of head, initial encounter Compression fracture of L2 Qualifiers: Encounter type: initial encounter Fracture type: closed Qualified Code(s): S32.020A - Wedge compression fracture of second lumbar vertebra, initial encounter for closed fracture Condition: Improved Prescriptions: No Action Atorvastatin Calcium 10 mg PO HS #0 Calcium Carbonate 600 mg PO BIDBS #0 ALPRAZolam [Xanax] 0.5 mg PO DAILY PRN PRN Reason: Anxiety Cholecalciferol (Vitamin D3) [Vitamin D3] 1,000 unit PO DAILY Metoprolol Tartrate 50 mg PO BID FLUoxetine [Prozac] 20 mg PO DAILY cycloSPORINE [Restasis Multidose] 1 drop EACH EYE BID Insulin Aspart [NovoLOG] 15 unit SQ AC Insulin Detemir [Levemir] 38 unit SQ HS Ferrous Sulfate 325 mg PO MOWEFR@1700 Tramadol [Ultram] 50 mg PO Q6HR PRN #20 tab PRN Reason: Pain Metformin HCl [Metformin HCl ER] 500 mg PO BID Losartan [Cozaar] 50 mg PO DAILY Warfarin Sodium 3 mg PO SUMOTUWEFRSA Warfarin Sodium 4 mg PO TH Cyclobenzaprine [Flexeril] 10 mg PO TID Aspirin [Aspirin EC] 81 mg PO DAILY Acetaminophen [Acetaminophen 8 Hour] 650 mg PO TID #0 Digoxin 125 mcg PO NOON #0 Tamsulosin [Flomax] 0.4 mg PO HS #28 cap Referrals: Alesia Sesay MD [Primary Care Provider] - - Seen By: physician
[2017-12-28] MEDS ORDERED: LEVOFLOXACIN PB 750 MG/150 ML BAG IV ONE (22:42)
[2017-12-29] MEDS ORDERED: LEVOFLOXACIN PB 750 MG/150 ML BAG IV SCH ×2 (01:51→23:30)
[2017-12-29] MEDS ORDERED: ONDANSETRON 4 MG/2 ML INJECTION IVP PRN (01:51)
[2017-12-29] MEDS ORDERED: ALPRAZolam 0.5 MG TABLET PO PRN (01:51)
[2017-12-29] MEDS ORDERED: SALINE FLUSH 10ml SYRINGE IV PRN (01:51)
[2017-12-29] MEDS ORDERED: FALL RISK - PHARMACY CONSULT MC ONE (02:00)
[2017-12-29 02:02] VITALS: BMI 35.2
[2017-12-29] MEDS: HYDROCODONE/APAP 5mg/325mg TABLET PO PRN ×4 (02:21→14:59)
[2017-12-29] MEDS: NS 1,000 ML IV SCH ×3 (03:11→23:18)
[2017-12-29] MEDS ORDERED: DEXTROSE 50% SYRINGE 50ml (1 AMP) IVP PRN (03:13)
--- NOTE | 2017-12-29 03:20 | History & Physical Report ---
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 she and her daughter state that she has fallen 4 times in the last week, tonight was the worst. she does not really remember the circumstances around amber's fall, she says in the past she has had a prodrome of dizziness and lightheadedness, with an orthostatic component. she has been primarily using a walker for ambulation lately. she came to the emergency department as a code trauma, was noted to have a facial laceration which was sutured, and several ecchymoses including her right shoulder. extensive imaging for the trauma revealed only an l2 vertebral compression fracture. it appears fortunate that there was no intracranial hemorrhage however, as she is therapeutic on coumadin with an inr of 2.36 and her platelets came back at 22,000. she had a leukocytosis, a bandemia, a temperature of 100.2, and a lactic acid level of 2.4. these findings appear to be due to a urinary tract infection, for which she was given levaquin intravenously 750 mg. she is subsequently admitted for further evaluation and management of sepsis from urinary source. Review of Systems - Constitutional Constitutional: Present: anorexia. Absent: chills, fever(s), headache(s) - EENMT Eyes: Absent: blurry vision, change in vision - Cardiovascular Cardiovascular: Present: syncope. Absent: chest pain, palpitations, dyspnea on exertion, orthopnea, edema - Respiratory Respiratory: Absent: cough, dyspnea, dyspnea on exertion - Gastrointestinal Gastrointestinal: Absent: abdominal pain, change in bowel habits - Musculoskeletal Musculoskeletal: Present: back pain - Neurological Neurological: Present: frequent falls, lack of coordination. Absent: abnormal gait, focal weakness Past Medical History Medical History Updates: Anxiety. A-fib. HLD. HTN. Osteoporosis. coronary artery disease status post lad stent about 2004. diabetes mellitus on insulin. nephrolithiasis. prior urinary tract infections. Depression. Type II DM insulin requiring Surgical History: appendectomy at age 11. bilateral total knee arthroplasties. right ankle repair. repair of a traumatic femur fracture Family History: No Significant Family History - Social History Smoking status: Never smoker Alcohol intake frequency: does not drink Current occupational status: retired ( career nurse, worked in [employer]) Medications Home Medications Medication Instructions Recorded Confirmed Type Acetaminophen [Acetaminophen 8 650 mg PO TID #0 07/28/16 12/28/17 History Hour] Atorvastatin Calcium 10 mg PO HS #0 07/28/16 12/28/17 History Calcium Carbonate 600 mg PO BIDBS #0 07/28/16 12/28/17 History Digoxin 125 mcg PO NOON #0 07/28/16 12/28/17 History ALPRAZolam [Xanax] 0.5 mg PO DAILY PRN 07/16/17 12/28/17 History Cholecalciferol (Vitamin D3) 1,000 unit PO DAILY 07/16/17 12/28/17 History [Vitamin D3] FLUoxetine [Prozac] 20 mg PO DAILY 07/16/17 12/28/17 History Metoprolol Tartrate 50 mg PO BID 07/16/17 12/28/17 History cycloSPORINE [Restasis Multidose] 1 drop EACH EYE BID 07/16/17 12/28/17 History Ferrous Sulfate 325 mg PO MOWEFR@1700 08/02/17 12/28/17 History Insulin Aspart [NovoLOG] 15 unit SQ AC 08/02/17 12/28/17 History Insulin Detemir [Levemir] 38 unit SQ HS 08/02/17 12/28/17 History Tamsulosin [Flomax] 0.4 mg PO HS #28 cap 08/02/17 12/28/17 Rx Tramadol [Ultram] 50 mg PO Q6HR PRN #20 tab 08/02/17 12/28/17 Rx Aspirin [Aspirin EC] 81 mg PO DAILY 12/28/17 12/28/17 History Cyclobenzaprine [Flexeril] 10 mg PO TID 12/28/17 12/28/17 History Losartan [Cozaar] 50 mg PO DAILY 12/28/17 12/28/17 History Metformin HCl [Metformin HCl ER] 500 mg PO BID 12/28/17 12/28/17 History Warfarin Sodium 3 mg PO SUMOTUWEFRSA 12/28/17 12/28/17 History Warfarin Sodium 4 mg PO TH 12/28/17 12/28/17 History Allergies Allergy/AdvReac Type Severity Reaction Status Date / Time JAISON Inhibitors AdvReac Intermediate Cough Verified 12/28/17 20:21 Exam Vital Signs: Temperature 98.5 F 12/29/17 02:07 Pulse Rate 79 12/29/17 02:07 Respiratory Rate 16 12/29/17 02:07 Blood Pressure 140/69 H 12/29/17 02:07 Pulse Oximetry 99 12/29/17 02:07 Height/Weight/BMI: Height 5 ft Weight 81.8 kg Body Mass Index 35.2 - Constitutional Present: no acute distress, well nourished - Routine HEENT Exam Head: Present: normocephalic, abrasion, laceration ( repaired above right eye). Absent: atraumatic Eye: Present: EOMI, PERRL ENT: Present: mucous membranes moist - Routine Neck Exam Present: supple, full ROM. Absent: JVD - Routine Respiratory Exam Present: CTA bilaterally. Absent: accessory muscle use, dyspnea, respiratory distress - Routine Cardiovascular Exam Present: RRR ( distant) - Routine Abdominal Exam Present: soft, normoactive bowel sounds, non distended. Absent: tenderness - Routine Extremities Exam Present: edema ( trace bilateral symmetric). Absent: cyanosis, clubbing - Routine Skin Exam Present: ecchymosis ( right shoulder, bilateral lower extremities) - Routine Neurological Exam Present: alert, oriented X3, CN II-XII intact. Absent: sensory deficit, motor deficit - Routine Psychiatric Exam Present: normal affect, normal thought process - Additional findings Additional findings: examination performed using telemedicine equipment with the assistance of the bedside nurse Results - Labs CBC & Chem 7: 12/28/17 19:53 12/28/17 19:53 Microbiology Results: Microbiology 12/28/17 22:56 Urine, Voided (Cc/notcc) Urine Culture - Preliminary Culture Initiated - Results Pending 12/28/17 21:30 Peripheral/Iv Start Blood Culture - Preliminary Culture Initiated - Results Pending 12/28/17 21:26 Peripheral/Iv Start Blood Culture - Preliminary Culture Initiated - Results Pending Assessment and Plan (1) Sepsis Current visit: Yes Status: Acute (2) Fall Current visit: Yes Status: Acute (3) UTI (urinary tract infection) Current visit: Yes Status: Acute (4) Thrombocytopenia Current visit: Yes Status: Acute (5) Traumatic injury Current visit: Yes Status: Acute (6) Closed compression fracture of L2 lumbar vertebra Current visit: Yes Status: Acute Assessment and Plan: davin is admitted for continued iv fluids and iv levaquin, we will follow her culture and sensitivity data on her urine culture. recheck lactate is pending. we will request a citrate tube in the morning, with a manual differential to review for pseudothrombocytopenia, on review she has been thrombocytopenic in the past, but it appears it was inconsistent. within 48 hours of having a platelet count markedly low, another result was normal. certainly will hold her coumadin and aspirin at this time in the event that her platelet count is accurate. given her hemodynamic stability, it appears somewhat unlikely this is sepsis related, and she does not appear to be in severe sepsis. physical and occupational therapy consultations are ordered and appreciated. her pain is currently well managed at rest, but she will need additional analgesics to manage the acute l2 compression fracture, consideration for more invasive treatment will be given if she is unable to tolerate pain with significant diversion from her baseline activity level. will provide further symptomatically supportive and diagnostic cares as the current workup, or as changes in her clinical scenario, indicate. the plan of care was discussed with the patient and her daughter at the bedside at the time of my evaluation and they expressed understanding and a desire to proceed. code status was discussed with the patient with her daughter present and she desires to be a full code. DVT Prophylaxis: SCD's - Physician Narrative Physician: Yesenia Patel MD Narrative: Date: 12/29/17 Time: 316 Hospital Course Summary Disclaimer: The visit summary below is not to be considered part of the above Progress Note.
[2017-12-29] MEDS: INSULIN ASPART 100unit/ml INJECTION SQ PRN ×2 (07:56→11:08)
--- NOTE | 2017-12-29 08:07 | XRay Report ---
Indication: fall, right shoulder pain PROCEDURE: XR shoulder RT 2-3 views: Encounter: Initial Comparison: None Findings: There is no acute fracture, dislocation or malalignment identified. Moderate acromioclavicular and glenohumeral degenerative changes. Impression: No acute osseous abnormality. .
--- NOTE | 2017-12-29 08:08 | XRay Report ---
Indication: sepsis of unknown origin PROCEDURE: XR chest 1V: Encounter: Initial Comparison: July 18, 2017 Findings: Patient is rotated towards the left. Lungs are clear. Mild senescent change of emphysema. No pneumothorax or effusion. Heart size and mediastinal contours are unchanged pulmonary vascularity is normal. Impression: No pneumonia. .
--- NOTE | 2017-12-29 08:09 | CT Scan Report ---
Indication: fall, right pelvis/hip pain/tenderness PROCEDURE: CT pelvis wo con: Encounter: Initial Comparison: None Technique: Axial noncontrast CT imaging through the pelvis with coronal and sagittal two-dimensional reformats. Automated Exposure Control and Iterative Reconstruction dose reducing techniques were utilized. Findings: Bony demineralization limiting detection of nondisplaced fractures. No acute fracture identified. Mild degenerative change in the lower lumbar spine and sacroiliac joints. Right-sided subcutaneous edema without focal hematoma. Visualized small and large bowel loops are unremarkable. Mild osteoarthritis in the right hip joint. Impression: No acute fracture. There is a preliminary report by [facility]. .
--- NOTE | 2017-12-29 08:12 | CT Scan Report ---
Indication: fall, low back pain/tenderness PROCEDURE: CT lumbar spine wo con: Encounter: Initial Comparison: CT abdomen and pelvis dated July 16, 2017 Technique: Axial noncontrast CT imaging of the lumbar spine was performed with coronal and sagittal two-dimensional reformats. Automated Exposure Control and Iterative Reconstruction dose reducing techniques were utilized. FINDINGS: The alignment of the lumbar spine is stable with scoliosis. Chronic mild superior endplate compression deformity of L2. Physiologic minimal wedging of T11 and T12. No fractures or traumatic subluxation of the lumbar spine is evident. Moderate multilevel degenerative disk and facet disease. The paraspinal soft tissues and spinal canal are otherwise unremarkable in appearance. Possible left adrenal adenoma. IMPRESSION: No evidence for acute traumatic injury of the lumbar spine. There is a preliminary report by [facility]. .
--- NOTE | 2017-12-29 08:15 | CT Scan Report ---
Indication: all, head injury, on Coumadin PROCEDURE: CT head/brain wo con: Encounter: Initial Comparison: None Technique: Axial CT images through the head were performed without contrast. Iterative Reconstruction dose reducing technique was utilized. FINDINGS: . Large calcifications in the area of the posterior falx could be due to meningioma, prior trauma or old hemorrhage. The ventricles are of normal size, shape, and configuration for the patient's age. There is no evidence of acute intracranial hemorrhage, midline displacement, or mass effect. There are scattered areas of low attenuation in the white matter which most likely represent changes of chronic microvascular ischemia. The CT attenuation of the brain parenchyma is otherwise normal within the cerebellum, brain stem, and cerebral hemispheres. The tympanic cavities and mastoid air cells are free of appreciable disease. There are no definite fractures of the skull base, calvarium, or visualized portion of the midface. Right frontal scalp hematoma IMPRESSION: No CT evidence of acute traumatic intracranial injury. There is a preliminary report by [facility]. .
--- NOTE | 2017-12-29 08:15 | CT Scan Report ---
Indication: fall, neck injury PROCEDURE: CT cervical spine wo con: Encounter: Initial Comparison: None Technique: Axial CT images through the cervical spine were performed without contrast. Coronal and sagittal reformatted images were also obtained. Automated Exposure Control and Iterative Reconstruction dose reducing techniques were utilized. FINDINGS: The alignment of the cervical spine is normal. Multilevel degenerative changes are present. There is no evidence of acute fracture or subluxation of the cervical spine. The atlantoaxial articulation, dens, and upper cervical spine demonstrate no subluxation. Low-attenuation left thyroid nodule. Mild sinus disease. Aberrant takeoff of the right subclavian artery. IMPRESSION: No acute traumatic abnormality of the cervical spine. There is a preliminary report by [facility]. .
[2017-12-29] MEDS: INSULIN ASPART 100unit/ml INJECTION SQ SCH ×3 (08:44→18:25)
[2017-12-29] MEDS: CycloSPORINE 0.05% EYE DROPS 4ml EACH EYE SCH ×2 (08:44→22:29)
[2017-12-29] MEDS: CYCLOBENZAPRINE 10 MG TABLET PO SCH ×3 (08:44→23:19)
[2017-12-29] MEDS: FLUoxetine 20 MG CAPSULE PO SCH (08:44)
[2017-12-29] MEDS: CALCIUM CARBONATE 600 MG TABLET PO SCH ×2 (08:45→18:25)
[2017-12-29] MEDS: FERROUS SULFATE 324 MG TABLET PO SCH (08:45)
[2017-12-29] MEDS ORDERED: CYCLOSPORINE EACH EYE SCH (09:00)
[2017-12-29] MEDS ORDERED: ENOXAPARIN 40 MG/0.4 ML INJECTION SQ SCH (09:00)
[2017-12-29] MEDS ORDERED: NON-FORMULARY MEDICATION 1 EACH EACH (Cholecalciferol (Vitamin D3) [Vitamin D3] 1,000 UNIT PO SCH (09:00)
--- NOTE | 2017-12-29 11:11 | History & Physical Report ---
History of Present Illness Date: 12/29/17 Chief complaint: Fall with head injury HPI: Cecille is a pleasant 72-year-old female who resides independly at [facility] , independent living at [facility] . She is under the primary care of Dr. donnie john. He reports that over the past week she has fallen 4 times, however, last night was the worst ending injuring her head. She presented to the emergency room for acute evaluation. CT scan of the head reveled no acute intracranial hemorrhage or injury. Cervical spine was negative for acute fracture. 2. The lumbar spine does reveal a mild superior endplate compression fracture. Probable chronic.CT of the pelvis and X-Rays of shoulder and chest x- ray were all negative for acute fracture unremarkable. The patient did have a laceration above the right eyebrow that was repaired with sutures. Basic labs were obtained. Patient was found to have leukocytosis with a white count of 13.4 with thrombocytopenia, platelets of 22, 69% neutrophils with 13% bandemia. Electrolytes were normal, total bilirubin mildly elevated at 1.4. INR is 2.36, as patient is chronically anticoagulated. Initially, venous lactate was found to be elevated at 2.4, this normalized overnight down to 1.7. Urine did reveal acute infectious process with positive protein, positive glucose, trace ketones , 3+ blood, 2+ leukocyte esterase, 5-10 RBCs, 50-200 WBCs with 3+ bacteria. Blood cultures and urine culture were obtained and pending, patient was given IV fluids as well as IV Levaquin for antimicrobial coverage. Given complexity of patient's multiple falls, head injury and findings of acute sepsis process hospitalist services were contacted and accepted patient for inpatient admission for further inpatient treatment. Past Medical History Medical History Updates: Anxiety. A-fib. HLD. HTN. Osteoporosis. coronary artery disease status post lad stent about 2004. diabetes mellitus on insulin. nephrolithiasis. prior urinary tract infections. Depression. Type II DM insulin requiring Surgical History: appendectomy at age 11. bilateral total knee arthroplasties. right ankle repair. repair of a traumatic femur fracture Family History: Father- Heart disease, CHF Family History: As Above - Social History Smoking status: Never smoker Substance use type: does not use Alcohol intake frequency: does not drink Housing: house Current occupational status: retired (Nurse) Social history: PCP Dr Alesia John Medications Home Medications Medication Instructions Recorded Confirmed Type Acetaminophen [Acetaminophen 8 650 mg PO TID #0 07/28/16 12/28/17 History Hour] Atorvastatin Calcium 10 mg PO HS #0 07/28/16 12/28/17 History Calcium Carbonate 600 mg PO BIDBS #0 07/28/16 12/28/17 History Digoxin 125 mcg PO NOON #0 07/28/16 12/28/17 History ALPRAZolam [Xanax] 0.5 mg PO DAILY PRN 07/16/17 12/28/17 History Cholecalciferol (Vitamin D3) 1,000 unit PO DAILY 07/16/17 12/28/17 History [Vitamin D3] FLUoxetine [Prozac] 20 mg PO DAILY 07/16/17 12/28/17 History Metoprolol Tartrate 50 mg PO BID 07/16/17 12/28/17 History cycloSPORINE [Restasis Multidose] 1 drop EACH EYE BID 07/16/17 12/28/17 History Ferrous Sulfate 325 mg PO MOWEFR@1700 08/02/17 12/28/17 History Insulin Aspart [NovoLOG] 15 unit SQ AC 08/02/17 12/28/17 History Insulin Detemir [Levemir] 38 unit SQ HS 08/02/17 12/28/17 History Tamsulosin [Flomax] 0.4 mg PO HS #28 cap 08/02/17 12/28/17 Rx Tramadol [Ultram] 50 mg PO Q6HR PRN #20 tab 08/02/17 12/28/17 Rx Aspirin [Aspirin EC] 81 mg PO DAILY 12/28/17 12/28/17 History Cyclobenzaprine [Flexeril] 10 mg PO TID 12/28/17 12/28/17 History Losartan [Cozaar] 50 mg PO DAILY 12/28/17 12/28/17 History Metformin HCl [Metformin HCl ER] 500 mg PO BID 12/28/17 12/28/17 History Warfarin Sodium 3 mg PO SUMOTUWEFRSA 12/28/17 12/28/17 History Warfarin Sodium 4 mg PO TH 12/28/17 12/28/17 History Allergies Allergy/AdvReac Type Severity Reaction Status Date / Time JAISON Inhibitors AdvReac Intermediate Cough Verified 12/28/17 20:21 Exam Vital Signs: Temperature 98.7 F 12/29/17 07:31 Pulse Rate 80 07/18/18 08:00 Respiratory Rate 16 12/29/17 07:31 Blood Pressure 114/58 12/29/17 07:31 Pulse Oximetry 95 12/29/17 07:31 Height/Weight/BMI: Height 1.52 m Weight 83.4 kg Body Mass Index 35.2 - Constitutional Present: mild distress, well nourished, well developed - Routine HEENT Exam Eye: Present: EOMI, PERRL ENT: Present: mucous membranes moist, dentition normal Comments: Laceration above right eyebrow with sutures placed Ecchymosis laterally to right eye - Routine Respiratory Exam Present: CTA bilaterally. Absent: wheezes - Routine Cardiovascular Exam Present: RRR, S1, S2. Absent: murmur - Routine Abdominal Exam Present: soft, normoactive bowel sounds, non distended. Absent: tenderness - Routine Extremities Exam Present: edema (trace bilateral lower), pulses intact - Routine Skin Exam Present: intact, dry, warm - Routine Neurological Exam Present: alert, oriented X3, CN II-XII intact, moving all extremities - Routine Psychiatric Exam Present: normal affect, normal thought process, cooperative Results - Labs CBC & Chem 7: 12/29/17 05:12 12/29/17 05:12 Microbiology Results: Microbiology 12/28/17 22:56 Urine, Voided (Cc/notcc) Urine Culture - Preliminary Culture Initiated - Results Pending 12/28/17 21:30 Peripheral/Iv Start Blood Culture - Preliminary Culture Initiated - Results Pending 12/28/17 21:26 Peripheral/Iv Start Blood Culture - Preliminary Culture Initiated - Results Pending Assessment and Plan (1) Sepsis Current visit: Yes Status: Acute (2) UTI (urinary tract infection) Current visit: Yes Status: Acute (3) Traumatic injury Current visit: Yes Status: Acute (4) Fall Current visit: Yes Status: Acute (5) Thrombocytopenia Current visit: Yes Status: Acute (6) Closed compression fracture of L2 lumbar vertebra Current visit: Yes Status: Acute Assessment and Plan: Impression Sepsis- Acute infection, Leukocytosis, elevated lactate Urinary tract infection Thrombopenia- POA at 22. Now resolved Fall with head injury Laceration above right eye Lumbar back pain with L2 compression fracture (chronic per Radiology interpretation) A-fib Type II DM insulin requiring HLD Hypertension Osteoporosis Coronary artery disease status post lad stent about 2004 Depression/Anxiety Plan Admitted to inpatient status under the care of Dr Patel CBC today and improvement in leukocytosis, thrombocytopenia and bandemia Given initial thrombocytopenia and chronic anticoagulation. We will forego any Lovenox. Patient is therapeutic with an INR greater than 2. Continue IV fluid for hydration Will work on pain control. Given both head injury as well as lumbar compression fracture. Encourage work with PT and OT once she is more medically stable. Goal is to return home independently Monitor Her for evidence of worsening headache or neurologic changes. Patient may require repeat Ct scan of the head given chronic anticoagulation with head injury SCD to BLE for ppx Monitor Accu-Cheks, continue on home NovoLog and Levemir or glycemic control. Can utilize sliding scale as needed Patient does wish to be a full code and this orders written Will discuss further orders and plan of care with attending, Dr. Patel At time of discharge medical care will return to primary care provider, Dr Alesia John 12/29/2017-1:10 PM-I examined the patient independently. I reviewed this chart, the patient history, and the ELECTRICIAN APPRENTICE's/PA's documented findings as above. We discussed and formulated the assessment and plan as above with the additions below.-Dr. Patel The patient was seen this afternoon in her room. She had fallen last night. She was able to call for help. She stated she been feeling kind of confused at home. On admission she was found to have severe sepsis and UTI. This morning, she was sitting up in a chair. She had eaten some of her lunch. She complained of pain around the right thigh where she has a large bruise and some lacerations that required stitches last night. She also complains of right shoulder pain where she also has a large bruise. She is oriented to [facility] and Wednesday, but cannot remember the year. She states normally she would know the year. She does still seem confused. She states she had a bowel movement yesterday. She states she has had urinary urgency and cloudy urine recently. She states she had bloody urine about 3 weeks ago and was started on antibiotic. On exam she is mildly drowsy but awake. She seems mildly confused. HEENT reveals sclerae to be anicteric and pupils are equal. Oropharynx is mildly dry. She has a large ecchymosis on her face lateral to her right eye with resulting edema. She has some lacerations lateral to the right eye which have been sutured. Neck is supple. Chest is clear to auscultation. Cardiovascular reveals a regular rate and rhythm. Abdomen is soft, obese, nontender with positive bowel sounds. SCDs are on. Extremities are free of edema. No back pain at this time. Impression and plan Altered mental status-likely secondary to sepsis vs concussion, but with head trauma and use of Coumadin, will repeat CT head to rule out developing bleed Sepsis with UTI-lactate has normalized. Continue Levaquin for UTI. Await cultures Chronic anticoagulation with Coumadin with recent trauma-hold Coumadin and aspirin today, depending upon evaluation tomorrow can consider restarting Type 2 diabetes mellitus-continue insulin and monitor. Hold metformin History of A. fib-continue digoxin and metoprolol. Hold Coumadin today. Borderline hypotension with recent sepsis-hold losartan DVT Prophylaxis: SCD's Resuscitation Status: Full Code - Physician Narrative Narrative: Date: 12/29/17 Time: 1059 Hospital Course Summary Disclaimer: The visit summary below is not to be considered part of the above Progress Note. Hospital Course: Impression Sepsis- Acute infection, Leukocytosis, elevated lactate Urinary tract infection Thrombopenia- POA at 22. Now resolved Fall with head injury Laceration above right eye Lumbar back pain with L2 compression fracture A-fib Type II DM insulin requiring HLD Hypertension Osteoporosis Coronary artery disease status post lad stent about 2004 Depression/Anxiety Plan Admitted to inpatient status under the care of Dr Patel CBC today and improvement in leukocytosis, thrombocytopenia and bandemia Even initial thrombocytopenia and chronic anticoagulation. We will forego any Lovenox. Patient is therapeutic with an INR greater than 2. Continue IV fluid for hydration Will work on pain control. Given both had injury as well as lumbar compression fracture. Encourage work with PT and OT once she is more medically stable. Goal is to return home independently Her for evidence of worsening headache or neurologic changes. Patient may require repeat Ct scan of the head given chronic anticoagulation with head injury SCD to BLE for ppx Monitor Accu-Cheks, continue on home NovoLog and Levemir or glycemic control. Can utilize sliding scale as needed Patient does wish to be a full code and this orders written Will discuss further orders and plan of care with attending, Dr. Patel At time of discharge medical care will return to primary care provider, Dr Aleisa John
[2017-12-29] MEDS: DIGOXIN 250 MCG TABLET PO SCH (12:09)
--- NOTE | 2017-12-29 13:53 | CT Scan Report ---
Indication: confusion, on coumadin, head trauma, rule out bleed PROCEDURE: CT head/brain wo con: Encounter: Initial Comparison: December 28, 2017 Technique: Axial CT images through the head were performed without contrast. Iterative Reconstruction dose reducing technique was utilized. FINDINGS: Calcified extra-axial mass along the posterior falx again seen. The ventricles are of normal size, shape, and configuration for the patient's age. There is no evidence of acute intracranial hemorrhage, midline displacement, or mass effect. There are multiple areas of low attenuation in the white matter which most likely represent changes of chronic microvascular ischemia. The CT attenuation of the brain parenchyma is otherwise normal within the cerebellum, brain stem, and cerebral hemispheres. The tympanic cavities and mastoid air cells are free of appreciable disease. There are no definite fractures of the skull base, calvarium, or visualized portion of the midface. IMPRESSION: No CT evidence of acute traumatic intracranial injury. Stable head CT. .
[2017-12-29] MEDS ORDERED: NON-FORMULARY MEDICATION 1 EACH EACH (Ferrous Sulfate [Ferrous Sulfate] 325 MG) PO SCH (17:00)
[2017-12-29] MEDS: TRAMADOL 50 MG TABLET PO PRN (18:25)
[2017-12-29] MEDS ORDERED: ACETAMINOPHEN 650 MG/20.3 ML SOLUTION PO PRN (19:41)
[2017-12-29] MEDS: CEFTRIAXONE 1 G in NS 100 ML IV SCH (19:56)
[2017-12-29] MEDS ORDERED: ACETAMINOPHEN 325 MG TABLET PO PRN (22:05)
[2017-12-29] MEDS: ATORVASTATIN 10 MG TABLET PO SCH (22:29)
[2017-12-29] MEDS: INSULIN DETEMIR 100unit/ml INJECTION SQ SCH (23:19)
[2017-12-29] MEDS: TAMSULOSIN 0.4 MG CAPSULE PO SCH (23:20)
[2017-12-30] MEDS: NS 1,000 ML IV SCH ×2 (07:32→11:19)
[2017-12-30] MEDS: INSULIN ASPART 100unit/ml INJECTION SQ SCH ×3 (08:39→18:38)
[2017-12-30] MEDS: CALCIUM CARBONATE 600 MG TABLET PO SCH ×2 (08:42→16:38)
[2017-12-30] MEDS: FLUoxetine 20 MG CAPSULE PO SCH (09:33)
[2017-12-30] MEDS: TRAMADOL 50 MG TABLET PO PRN ×2 (09:34→14:22)
[2017-12-30] MEDS: CycloSPORINE 0.05% EYE DROPS 4ml EACH EYE SCH ×2 (09:34→21:06)
[2017-12-30] MEDS: CYCLOBENZAPRINE 10 MG TABLET PO SCH ×3 (09:34→21:05)
[2017-12-30] MEDS ORDERED: WARFARIN - PHARMACY CONSULT MC ONE (10:44)
--- NOTE | 2017-12-30 10:54 | Progress Note ---
- Date 12/30/17 Subjective: Cecille is seen this morning in follow-up. She is resting in bed with her daughter at the bedside. Daughter notes that her mentation seems to be more clear this morning. Cecille continues to report a diffuse headache at 7 out of 10 that has been managed well with pain medication. She continues to have significant tenderness to the right shoulder with significant swelling and ecchymosis. She has decreased range of motion due to the pain. Reports difficult time just ambulating to the bathroom as it wears her out. She denies feeling short of breath having dizziness, chest pain or abdominal pain. He was noted to have a fever of 101.7 last evening. Nursing reports she ate 75% of meal yesterday. Objective Vital signs: Temperature 97.4 F 12/30/17 07:35 Pulse Rate 79 12/30/17 07:35 Respiratory Rate 24 12/30/17 07:35 Blood Pressure 144/73 H 12/30/17 07:35 Pulse Oximetry 98 12/30/17 07:35 Height/Weight/BMI: Height 1.52 m Weight 85.3 kg Body Mass Index 35.2 - Constitutional Present: no acute distress, well nourished, well developed - Routine HEENT Exam Eye: Present: EOMI ENT: Present: mucous membranes moist, dentition normal Comments: Facial ecchymosis laterally to the eye - Routine Respiratory Exam Present: CTA bilaterally. Absent: wheezes - Routine Cardiovascular Exam Present: RRR, S1, S2. Absent: murmur - Routine Abdominal Exam Present: soft, normoactive bowel sounds, non distended. Absent: tenderness - Routine Extremities Exam Present: normal capillary refill - Routine Skin Exam Present: dry, warm - Routine Neurological Exam Present: alert, oriented X3, CN II-XII intact - Routine Lymphatic Exam Lymphatic: Absent: adenopathy - Routine Psychiatric Exam Present: normal affect Results - Labs CBC & Chem 7: 12/30/17 04:06 12/30/17 04:06 Microbiology Results: Microbiology 12/28/17 22:56 Urine, Voided (Cc/notcc) Urine Culture - Preliminary Escherichia coli 12/28/17 21:26 Peripheral/Iv Start Blood Culture - Preliminary No Growth After 1 Day 12/28/17 21:30 Peripheral/Iv Start Blood Culture - Preliminary No Growth After 1 Day Assessment and Plan Assessment and Plan: Impression Sepsis- Acute infection, Leukocytosis, elevated lactate Urinary tract infection Thrombopenia- POA at 22 Fall with head injury Laceration above right eye Right shoulder contusion Lumbar back pain with L2 compression fracture (chronic per Radiology interpretation) A-fib Type II DM insulin requiring HLD Hypertension Osteoporosis Coronary artery disease status post lad stent about 2004 Depression/Anxiety Plan Continues to have fever up to 101.7 last night. Patient was switched to IV Rocephin for treatment of Escherichia coli positive UTI Hopeful for less cognitive effects than Levaquin. Preliminary Blood cultures are negative Platelets decreased today to 35. Suspect that possibly yesterdays normal platelet was inaccurate. Did review history patient has had thrombocytopenia intermittently in the past dating back to 2009. Exact etiology is unknown Continue to work on pain control, and Hume Hume and Flexeril may also cause episodes of confusion or encephalopathy Continue to work with PT and OT for ongoing strengthening Check INR today as Coumadin was held yesterday. Consultation placed to pharmacy for INR and Coumadin management. Continue with metoprolol and digoxin. Given history of atrial fibrillation Did discuss long-term discharge plan with patient and daughter. Patient is interested in the IRU unit once medically stable. Her goal is to return home independently Discussed with attending, Dr Garcia - Time spent with patient Time with patient PN: 35 minutes - Physician Narrative Physician: other (Everton Valle MD) Narrative: Date: 12/30/17 Time: 1043 I have independently interviewed and examined patient. Patient chart reviewed. Case discussed with my SAFETY COUNSELOR. Care plan developed with my supervision, agree with above. Patient resting in bed at the time of interview, patient's daughter present at bedside. Patient's family noted difficulty in ambulation and patient required significant assistance even to go to the bathroom. The patient also has had history of frequent falls prior to admission. Has good appetite. Discussed with patient about admission for rehabilitation for further physical therapy. Patient 's family also discussed regarding possible jail admit thereafter, patient not agreeable at this point. Physical exam: AAO x 3, NAD, ecchymosis noted on the right side of the face, right side of the forehead PERRLA, EOMI S1 and S2 heard on auscultation, no murmurs Lungs clear to auscultation bilaterally, no wheezing, no crackles Abdomen soft, nontender, positive bowel sounds 1+ pitting edema bilateral lower extremities. Strength preserved, sensations intact bilateral upper and lower extremities. Impression - UTI with sepsis, chronic thrombocytopenia, recurrent falls, right shoulder contusion, atrial fibrillation, insulin dependent type 2 diabetes mellitus, osteoporosis, coronary artery disease, hypertension, hyperlipidemia Plan - INR 1.7 today, we will provide heparin 5000 units subcutaneous 1 and recheck INR in the morning. Patient high risk fall, PT, OT on board. Tentative plans for discharge to IRT unit in the next 23 days once medically stable. On review of records, patient noted to have persistent thrombocytopenia since 2009 , uncertain etiology at this point. Hospital Course Summary Disclaimer: The visit summary below is not to be considered part of the above Progress Note. Hospital Course: Impression Sepsis- Acute infection, Leukocytosis, elevated lactate Urinary tract infection Thrombopenia- POA at 22. Now resolved Fall with head injury Laceration above right eye Lumbar back pain with L2 compression fracture A-fib Type II DM insulin requiring HLD Hypertension Osteoporosis Coronary artery disease status post lad stent about 2004 Depression/Anxiety Plan Admitted to inpatient status under the care of Dr Patel CBC today and improvement in leukocytosis, thrombocytopenia and bandemia Even initial thrombocytopenia and chronic anticoagulation. We will forego any Lovenox. Patient is therapeutic with an INR greater than 2. Continue IV fluid for hydration Will work on pain control. Given both had injury as well as lumbar compression fracture. Encourage work with PT and OT once she is more medically stable. Goal is to return home independently Her for evidence of worsening headache or neurologic changes. Patient may require repeat Ct scan of the head given chronic anticoagulation with head injury SCD to BLE for ppx Monitor Accu-Cheks, continue on home NovoLog and Levemir or glycemic control. Can utilize sliding scale as needed Patient does wish to be a full code and this orders written Will discuss further orders and plan of care with attending, Dr. Patel At time of discharge medical care will return to primary care provider, Dr Alesia Sesay
[2017-12-30] MEDS ORDERED: HEPARIN SUB-Q 5,000units/0.5ml INJECTION SQ ONE (11:35)
--- NOTE | 2017-12-30 11:38 | Pharmacy Consult ---
Pharmacy Consult-Heparin - Laboratory Information Heparin Plt Count 35 T/MM3 (130-400) L D 12/30/17 04:06 - Consult Information COUMADIN CONSULT (Initial): Dx: A. FIB Baseline INR = 1.73. Will give Warfarin 5mg today. Recommend bridge therapy with appropriate agent until INR > 2.0 Thank you.
[2017-12-30] MEDS: DIGOXIN 250 MCG TABLET PO SCH (11:54)
[2017-12-30] MEDS ORDERED: WARFARIN 5 MG TABLET PO SCH (12:00)
[2017-12-30] MEDS: TAMSULOSIN 0.4 MG CAPSULE PO SCH (21:05)
[2017-12-30] MEDS: CEFTRIAXONE 1 G in NS 100 ML IV SCH (21:06)
[2017-12-30] MEDS: ATORVASTATIN 10 MG TABLET PO SCH (21:06)
[2017-12-30] MEDS: INSULIN DETEMIR 100unit/ml INJECTION SQ SCH (23:47)
[2017-12-31] MEDS: TRAMADOL 50 MG TABLET PO PRN (00:21)
[2017-12-31] MEDS: HALOPERIDOL 5 MG/ML INJECTION IVP PRN (00:22)
[2017-12-31] MEDS: NS 1,000 ML IV SCH ×2 (00:37→14:18)
[2017-12-31] MEDS: HYDROCODONE/APAP 5mg/325mg TABLET PO PRN ×2 (04:46→09:05)
--- NOTE | 2017-12-31 07:25 | Pharmacy Consult ---
Pharmacy Consult-Warfarin - Laboratory Information 12/28/17 12/28/17 12/28/17 19:53 19:53 19:53 Hgb 12.9 Hct 38.5 INR 2.36 H AST 40 H ALT 31 Albumin 4.3 12/29/17 12/30/17 12/30/17 05:12 04:06 10:54 Hgb 10.7 L D 9.5 L D Hct 33.0 L D 29.7 L INR 1.73 H AST ALT Albumin 12/31/17 12/31/17 04:06 04:06 Hgb 9.6 L Hct 29.8 L INR 1.76 H AST ALT Albumin - Consult Information We will increase the dose of warfarin to 6mg x 1 po today. INR is resistant to increase but should see gains by tomorrow. In the mean time we would suggest a bridge of enoxaparin or sq heparin. Thanks.
[2017-12-31] MEDS: INSULIN ASPART 100unit/ml INJECTION SQ SCH ×3 (08:55→17:13)
[2017-12-31] MEDS: FERROUS SULFATE 324 MG TABLET PO SCH (08:56)
[2017-12-31] MEDS: CycloSPORINE 0.05% EYE DROPS 4ml EACH EYE SCH ×2 (08:56→21:24)
[2017-12-31] MEDS: CYCLOBENZAPRINE 10 MG TABLET PO SCH ×3 (08:56→21:25)
[2017-12-31] MEDS: CALCIUM CARBONATE 600 MG TABLET PO SCH ×2 (08:57→17:25)
[2017-12-31] MEDS: FLUoxetine 20 MG CAPSULE PO SCH (08:57)
[2017-12-31] MEDS ORDERED: ENOXAPARIN 40 MG/0.4 ML INJECTION SQ ONE (09:45)
[2017-12-31] MEDS ORDERED: WARFARIN 6 MG TABLET PO SCH (12:00)
[2017-12-31] MEDS: DIGOXIN 250 MCG TABLET PO SCH (12:54)
[2017-12-31] MEDS: INSULIN ASPART 100unit/ml INJECTION SQ PRN (12:54)
--- NOTE | 2017-12-31 18:24 | Progress Note ---
- Date 12/31/17 Subjective: Patient resting in bed at the time of interview. Had another episode of hypoglycemia with blood sugars low at 62 this afternoon. We will switch insulin aspart 10 units subcutaneous 3 times a day before meals. No reported chest pain , no palpitations, no shortness of breath. WBC count 4800. Hemoglobin stable at 9.6. Platelets 24 when compared to 35 yesterday. Objective Vital signs: Temperature 97.0 F 12/31/17 15:35 Pulse Rate 62 12/31/17 15:35 Respiratory Rate 18 12/31/17 15:35 Blood Pressure 140/66 H 12/31/17 15:35 Pulse Oximetry 100 12/31/17 15:35 Height/Weight/BMI: Height 1.52 m Weight 85.2 kg Body Mass Index 35.2 - Additional findings Additional findings: General: Alert, awake, oriented 3. Not in acute distress. Head: Pupils equal, round, reactive to light and accommodation. Extraocular movements intact. Neck: No elevation in JVP. No pharyngeal erythema noted. Chest: The patient does not use accessory muscles for breathing. Lungs: Breath sounds audible on auscultation bilateral lung weiner. No wheezing , no rhonchi, no crepitations, no crackles. No pleural rub. CVS: S1, S2 heard on auscultation. Normal rate and rhythm. No murmur, no S3/S4 gallops. Abdomen: Soft, nontender, no distention. Bowel sounds appreciated on auscultation. : No flank tenderness, no suprapubic distention or tenderness. Skin: Ecchymosis noted on the right side of the patient's face. Capillary refill less than 4 seconds. Extremities: 1+ pitting pedal edema bilateral lower extremities. No calf tenderness bilaterally. Palpable dorsalis pedis and posterior tibial pulses bilateral lower extremities. LIFESTYLE COORDINATOR: Strength 5/5 bilateral upper and lower extremities. Sensations intact. No slurred speech, no facial droop. No discernible focal neurological deficits. Results - Labs CBC & Chem 7: 12/31/17 04:06 12/31/17 04:06 Microbiology Results: Microbiology 12/28/17 22:56 Urine, Voided (Cc/notcc) Urine Culture - Final Escherichia coli 12/28/17 21:26 Peripheral/Iv Start Blood Culture - Preliminary No Growth After 2 Days 12/28/17 21:30 Peripheral/Iv Start Blood Culture - Preliminary No Growth After 2 Days Assessment and Plan (1) Sepsis Current visit: Yes Status: Acute (2) UTI (urinary tract infection) Current visit: Yes Status: Acute (3) Traumatic injury Current visit: Yes Status: Acute (4) Fall Current visit: Yes Status: Acute (5) Thrombocytopenia Current visit: Yes Status: Chronic (6) Closed compression fracture of L2 lumbar vertebra Current visit: Yes Status: Acute Assessment and Plan: Impression Sepsis- Acute infection, Leukocytosis, elevated lactate Urinary tract infection Thrombopenia-chronic Fall with head injury Laceration above right eye Right shoulder contusion Lumbar back pain with L2 compression fracture (chronic per Radiology interpretation) A-fib Type II DM insulin requiring HLD Hypertension Osteoporosis Coronary artery disease status post lad stent about 2004 Depression/Anxiety Plan Continues to have fever up to 101.4 last night. If patient has further temperature spikes, we will repeat blood cultures. Continue IV Rocephin for treatment of UTI with sensitive Escherichia coli Confusion, mental status changes noted earlier during hospital stay improving. INR 1.76, discussed case with pharmacy. Will provide Lovenox 40 mg subcutaneous 1. Recheck INR tomorrow. Pre-meal blood sugar 62 this afternoon. We will switch insulin aspart 10 units subcutaneous 3 times a day before meals. We will continue to monitor blood sugars Preliminary Blood cultures are negative Platelets decreased today to 24. Did review history patient has had thrombocytopenia intermittently in the past dating back to 2009. Exact etiology is unknown Continue to work on pain control, and Raphine Raphine and Flexeril may also cause episodes of confusion or encephalopathy Continue to work with PT and OT for ongoing strengthening Consultation placed to pharmacy for INR and Coumadin management. Continue with metoprolol and digoxin. Given history of atrial fibrillation Patient is interested in the IRU unit once medically stable. Her goal is to return home independently DVT Prophylaxis: SCD's, Lovenox, Coumadin GI Prophylaxis: Protonix Resuscitation Status: Full Code - Time spent with patient Time with patient PN: 35 minutes - Physician Narrative Narrative: Date: 12/31/17 Time: 1817 Hospital Course Summary Disclaimer: The visit summary below is not to be considered part of the above Progress Note. Hospital Course: Impression Sepsis- Acute infection, Leukocytosis, elevated lactate Urinary tract infection Thrombopenia- POA at 22. Now resolved Fall with head injury Laceration above right eye Lumbar back pain with L2 compression fracture A-fib Type II DM insulin requiring HLD Hypertension Osteoporosis Coronary artery disease status post lad stent about 2004 Depression/Anxiety Plan Admitted to inpatient status under the care of Dr Patel CBC today and improvement in leukocytosis, thrombocytopenia and bandemia Even initial thrombocytopenia and chronic anticoagulation. We will forego any Lovenox. Patient is therapeutic with an INR greater than 2. Continue IV fluid for hydration Will work on pain control. Given both had injury as well as lumbar compression fracture. Encourage work with PT and OT once she is more medically stable. Goal is to return home independently Her for evidence of worsening headache or neurologic changes. Patient may require repeat Ct scan of the head given chronic anticoagulation with head injury SCD to BLE for ppx Monitor Accu-Cheks, continue on home NovoLog and Levemir or glycemic control. Can utilize sliding scale as needed Patient does wish to be a full code and this orders written Will discuss further orders and plan of care with attending, Dr. Patel At time of discharge medical care will return to primary care provider, Dr Alesia Sesay
[2017-12-31] MEDS: CEFTRIAXONE 1 G in NS 100 ML IV SCH (20:15)
[2017-12-31] MEDS: INSULIN DETEMIR 100unit/ml INJECTION SQ SCH (21:25)
[2017-12-31] MEDS: ATORVASTATIN 10 MG TABLET PO SCH (21:25)
[2017-12-31] MEDS: TAMSULOSIN 0.4 MG CAPSULE PO SCH (21:25)
[2018-01-01] MEDS: HALOPERIDOL 5 MG/ML INJECTION IVP PRN (04:12)
[2018-01-01] MEDS: HYDROCODONE/APAP 5mg/325mg TABLET PO PRN ×2 (04:13→09:40)
--- NOTE | 2018-01-01 07:53 | Pharmacy Consult ---
Pharmacy Consult-Warfarin - Laboratory Information 12/28/17 12/28/17 12/28/17 19:53 19:53 19:53 Hgb 12.9 Hct 38.5 INR 2.36 H AST 40 H ALT 31 Albumin 4.3 12/29/17 12/30/17 12/30/17 05:12 04:06 10:54 Hgb 10.7 L D 9.5 L D Hct 33.0 L D 29.7 L INR 1.73 H AST ALT Albumin 12/31/17 12/31/17 01/01/18 04:06 04:06 04:38 Hgb 9.6 L Hct 29.8 L INR 1.76 H 2.46 H AST ALT Albumin - Consult Information Warfarin Consult: Day 3 is a 72 yo female was admitted on warfarin anticoagulation therapy for the diagnosis of atrial fibrillation. The patient's home dose of warfarin was warfarin 3 mg daily except when she took 4 mg . Date INR Dose 12/30 1.73 5 mg 12/31 1.76 6 mg (a dose of Enoxaparin 40 mg was given to bridge) 01/01 2.46 4 mg Gave 4 mg of warfarin as I'm not sure that giving a 3 mg will keep her above 2.00. The pharmacy will continue to monitor the INR's and adjust the warfarin accordingly. Thanks, Ciro Argueta, Pharmacist.
[2018-01-01] MEDS: INSULIN ASPART 100unit/ml INJECTION SQ SCH ×2 (08:48→11:52)
[2018-01-01] MEDS: NS 1,000 ML IV SCH ×2 (08:49→23:52)
[2018-01-01] MEDS: CycloSPORINE 0.05% EYE DROPS 4ml EACH EYE SCH ×2 (08:50→21:12)
[2018-01-01] MEDS: CALCIUM CARBONATE 600 MG TABLET PO SCH ×2 (08:50→17:28)
[2018-01-01] MEDS: CYCLOBENZAPRINE 10 MG TABLET PO SCH ×3 (08:50→21:23)
[2018-01-01] MEDS: FLUoxetine 20 MG CAPSULE PO SCH (08:50)
[2018-01-01] MEDS: DIGOXIN 250 MCG TABLET PO SCH (11:53)
[2018-01-01] MEDS ORDERED: WARFARIN 4 MG TABLET PO SCH (12:00)
--- NOTE | 2018-01-01 18:14 | Progress Note ---
- Date 01/01/18 Subjective: Patient resting in bedside chair at the time of interview. Patient's daughter present at bedside. Fasting blood sugar low at 68. Patient reports nighttime some confusion and double vision. We will discontinue scheduled insulin aspart 10 units 3 times a day. We will continue 15 units insulin sliding scale as per protocol. Nighttime insulin Levemir dose decreased to 24 units at bedtime. Patient has +1.2 L fluid balance. INR therapeutic at 2.4. Otherwise, patient states feeling better. Objective Vital signs: Temperature 96.5 F L 01/01/18 15:28 Pulse Rate 76 01/01/18 15:28 Respiratory Rate 18 01/01/18 15:28 Blood Pressure 122/69 01/01/18 15:28 Pulse Oximetry 97 01/01/18 15:28 Height/Weight/BMI: Height 1.52 m Weight 85.7 kg Body Mass Index 35.2 - Additional findings Additional findings: General: Alert, awake, oriented 3. Not in acute distress. Head: Pupils equal, round, reactive to light and accommodation. Extraocular movements intact. Neck: No elevation in JVP. No pharyngeal erythema noted. Chest: The patient does not use accessory muscles for breathing. Lungs: Breath sounds audible on auscultation bilateral lung weiner. No wheezing , no rhonchi, no crepitations, no crackles. No pleural rub. CVS: S1, S2 heard on auscultation. Normal rate and rhythm. No murmur, no S3/S4 gallops. Abdomen: Soft, nontender, no distention. Bowel sounds appreciated on auscultation. : No flank tenderness, no suprapubic distention or tenderness. Skin: Ecchymosis noted on the right side of the patient's face. Capillary refill less than 4 seconds. Extremities: 1+ pitting pedal edema bilateral lower extremities. No calf tenderness bilaterally. Palpable dorsalis pedis and posterior tibial pulses bilateral lower extremities. Results - Labs CBC & Chem 7: 12/31/17 04:06 12/31/17 04:06 Microbiology Results: Microbiology 12/28/17 21:30 Peripheral/Iv Start Blood Culture - Preliminary No Growth After 3 Days 12/28/17 21:26 Peripheral/Iv Start Blood Culture - Preliminary No Growth After 3 Days 12/28/17 22:56 Urine, Voided (Cc/notcc) Urine Culture - Final Escherichia coli Assessment and Plan (1) Sepsis Current visit: Yes Status: Acute (2) UTI (urinary tract infection) Current visit: Yes Status: Acute (3) Traumatic injury Current visit: Yes Status: Acute (4) Fall Current visit: Yes Status: Acute (5) Thrombocytopenia Current visit: Yes Status: Chronic (6) Closed compression fracture of L2 lumbar vertebra Current visit: Yes Status: Acute Assessment and Plan: Impression Sepsis- Acute infection, Leukocytosis, elevated lactate Urinary tract infection Thrombopenia-chronic Fall with head injury Laceration above right eye Right shoulder contusion Lumbar back pain with L2 compression fracture (chronic per Radiology interpretation) A-fib Type II DM insulin requiring HLD Hypertension Osteoporosis Coronary artery disease status post lad stent about 2004 Depression/Anxiety Plan Patient afebrile overnight. Continue IV Rocephin for treatment of UTI with sensitive Escherichia coli Confusion, mental status changes noted earlier during hospital stay improving. INR 2.4. Continue Coumadin as per pharmacy dosing. entry rep blood sugar 68. We will discontinue insulin aspart 10 units scheduled. Patient will be provided 15 units sliding scale insulin as part subcutaneous 3 times a day before meals. We will continue to monitor blood sugars. We will decrease dose of Levemir 24 units subcutaneous at bedtime. Preliminary Blood cultures are negative Leslie and Flexeril may also cause episodes of confusion or encephalopathy Continue to work with PT and OT for ongoing strengthening Continue with metoprolol and digoxin. Given history of atrial fibrillation Patient is interested in the IRU unit once medically stable. Her goal is to return home independently DVT Prophylaxis: Coumadin Resuscitation Status: Full Code - Time spent with patient Time with patient PN: 25 minutes - Physician Narrative Narrative: Date: 01/01/18 Time: 1809 Hospital Course Summary Disclaimer: The visit summary below is not to be considered part of the above Progress Note. Hospital Course: 12/29/2017 Admitted to inpatient status under the care of Dr Patel CBC today and improvement in leukocytosis, thrombocytopenia and bandemia Even initial thrombocytopenia and chronic anticoagulation. We will forego any Lovenox. Patient is therapeutic with an INR greater than 2. Continue IV fluid for hydration Will work on pain control. Given both had injury as well as lumbar compression fracture. Encourage work with PT and OT once she is more medically stable. Goal is to return home independently Her for evidence of worsening headache or neurologic changes. Patient may require repeat Ct scan of the head given chronic anticoagulation with head injury SCD to BLE for ppx Monitor Accu-Cheks, continue on home NovoLog and Levemir or glycemic control. Can utilize sliding scale as needed Patient does wish to be a full code and this orders written Will discuss further orders and plan of care with attending, Dr. Patel At time of discharge medical care will return to primary care provider, Dr Alesia Sesay 12/30/2017 Continues to have fever up to 101.7 last night. Patient was switched to IV Rocephin for treatment of Escherichia coli positive UTI Hopeful for less cognitive effects than Levaquin. Preliminary Blood cultures are negative Platelets decreased today to 35. Suspect that possibly yesterdays normal platelet was inaccurate. Did review history patient has had thrombocytopenia intermittently in the past dating back to 2009. Exact etiology is unknown Continue to work on pain control, and Leslie Leslie and Flexeril may also cause episodes of confusion or encephalopathy Continue to work with PT and OT for ongoing strengthening Check INR today as Coumadin was held yesterday. Consultation placed to pharmacy for INR and Coumadin management. Continue with metoprolol and digoxin. Given history of atrial fibrillation Did discuss long-term discharge plan with patient and daughter. Patient is interested in the IRU unit once medically stable. Her goal is to return home independently 12/31/2017 Continues to have fever up to 101.4 last night. If patient has further temperature spikes, we will repeat blood cultures. Continue IV Rocephin for treatment of UTI with sensitive Escherichia coli Confusion, mental status changes noted earlier during hospital stay improving. INR 1.76, discussed case with pharmacy. Will provide Lovenox 40 mg subcutaneous 1. Recheck INR tomorrow. Pre-meal blood sugar 62 this afternoon. We will switch insulin aspart 10 units subcutaneous 3 times a day before meals. We will continue to monitor blood sugars Preliminary Blood cultures are negative Platelets decreased today to 24. Did review history patient has had thrombocytopenia intermittently in the past dating back to 2009. Exact etiology is unknown Continue to work on pain control, and Leslie Leslie and Flexeril may also cause episodes of confusion or encephalopathy Continue to work with PT and OT for ongoing strengthening Consultation placed to pharmacy for INR and Coumadin management. Continue with metoprolol and digoxin. Given history of atrial fibrillation 01/01/2018 Patient afebrile overnight. Continue IV Rocephin for treatment of UTI with sensitive Escherichia coli Confusion, mental status changes noted earlier during hospital stay improving. INR 2.4. Continue Coumadin as per pharmacy dosing. entry rep blood sugar 68. We will discontinue insulin aspart 10 units scheduled. Patient will be provided 15 units sliding scale insulin as part subcutaneous 3 times a day before meals. We will continue to monitor blood sugars. We will decrease dose of Levemir 24 units subcutaneous at bedtime. Preliminary Blood cultures are negative Leslie and Flexeril may also cause episodes of confusion or encephalopathy Continue to work with PT and OT for ongoing strengthening Continue with metoprolol and digoxin. Given history of atrial fibrillation Patient is interested in the IRU unit once medically stable. Her goal is to return home independently
[2018-01-01] MEDS ORDERED: INSULIN DETEMIR 100unit/ml INJECTION SQ SCH (21:00)
[2018-01-01] MEDS: CEFTRIAXONE 1 G in NS 100 ML IV SCH (21:12)
[2018-01-01] MEDS: TAMSULOSIN 0.4 MG CAPSULE PO SCH (21:13)
[2018-01-01] MEDS: ATORVASTATIN 10 MG TABLET PO SCH (21:13)
--- NOTE | 2018-01-02 07:04 | Pharmacy Consult ---
Pharmacy Consult-Warfarin - Laboratory Information 12/31/17 12/31/17 01/01/18 04:06 04:06 04:38 Hgb 9.6 L Hct 29.8 L INR 1.76 H 2.46 H AST ALT Albumin 01/02/18 04:29 Hgb Hct INR 3.45 H AST ALT Albumin - Consult Information Coumadin Consult: Day 4 Will hold the warfarin today. Thanks, Ciro Argueta, Pharmacist.
[2018-01-02 07:29] VITALS: BP 146/83; PULSE 66; RESP 18; TEMP 98.6; O2SAT 96
[2018-01-02] MEDS: HYDROCODONE/APAP 5mg/325mg TABLET PO PRN (07:50)
[2018-01-02] MEDS: CALCIUM CARBONATE 600 MG TABLET PO SCH (07:50)
[2018-01-02] MEDS: FLUoxetine 20 MG CAPSULE PO SCH ×2 (07:50→08:37)
[2018-01-02] MEDS: CYCLOBENZAPRINE 10 MG TABLET PO SCH ×2 (07:51→08:36)
[2018-01-02] MEDS: CycloSPORINE 0.05% EYE DROPS 4ml EACH EYE SCH ×2 (07:51→08:37)
--- NOTE | 2018-01-02 10:12 | Discharge Summary ---
Discharge Information Date of admission: 12/29/17 00:06 Anticipated date of discharge: 01/02/18 Attending Physician: Everton Valle MD Primary care physician: Alesia John MD Consults: 12/30/17 IRU Screening [Inpatient Rehab Screening] [CONS] Routine - Discharge Diagnosis (1) Sepsis Status: Resolved (2) UTI (urinary tract infection) Status: Resolved (3) Traumatic injury Status: Acute (4) Fall Status: Acute (5) Thrombocytopenia Status: Chronic (6) Closed compression fracture of L2 lumbar vertebra Status: Acute Laceration above right eye Right shoulder contusion A-fib Type II DM insulin requiring HLD Hypertension Osteoporosis Coronary artery disease status post lad stent about 2004 Depression/Anxiety - Laboratory Labs: 12/31/17 04:06 01/02/18 04:29 INR 3.45 today. - Microbiology Microbiology 12/28/17 21:30 Peripheral/Iv Start Blood Culture - Preliminary No Growth After 4 Days 12/28/17 21:26 Peripheral/Iv Start Blood Culture - Preliminary No Growth After 4 Days 12/28/17 22:56 Urine, Voided (Cc/notcc) Urine Culture - Final Escherichia coli - Radiology Radiology: CT cervical spine without on 12/28/2017 IMPRESSION: No acute traumatic abnormality of the cervical spine. CT head without on 12/28/2017 IMPRESSION: No CT evidence of acute traumatic intracranial injury. CT lumbar spine without on 12/28/17 IMPRESSION: No evidence for acute traumatic injury of the lumbar spine. CT pelvis without on 12/28/2017 Impression: No acute fracture. X-ray right shoulder on 12/28/2017 Impression: No acute osseous abnormality. Repeat CT head without on 12/29/2017 IMPRESSION: No CT evidence of acute traumatic intracranial injury. Stable head CT. History of Present Illness HPI: Cecille is a pleasant 72-year-old female who resides independly at [facility] , independent living at the [facility] . She is under the primary care of Dr. donnie john. He reports that over the past week she has fallen 4 times, however, last night was the worst ending injuring her head. She presented to the emergency room for acute evaluation. CT scan of the head reveled no acute intracranial hemorrhage or injury. Cervical spine was negative for acute fracture. 2. The lumbar spine does reveal a mild superior endplate compression fracture. Probable chronic.CT of the pelvis and X-Rays of shoulder and chest x- ray were all negative for acute fracture unremarkable. The patient did have a laceration above the right eyebrow that was repaired with sutures. Basic labs were obtained. Patient was found to have leukocytosis with a white count of 13.4 with thrombocytopenia, platelets of 22, 69% neutrophils with 13% bandemia. Electrolytes were normal, total bilirubin mildly elevated at 1.4. INR is 2.36, as patient is chronically anticoagulated. Initially, venous lactate was found to be elevated at 2.4, this normalized overnight down to 1.7. Urine did reveal acute infectious process with positive protein, positive glucose, trace ketones , 3+ blood, 2+ leukocyte esterase, 5-10 RBCs, 50-200 WBCs with 3+ bacteria. Blood cultures and urine culture were obtained and pending, patient was given IV fluids as well as IV Levaquin for antimicrobial coverage. Given complexity of patient's multiple falls, head injury and findings of acute sepsis process hospitalist services were contacted and accepted patient for inpatient admission for further inpatient treatment. Objective Vital signs: Temperature 98.6 F 01/02/18 07:28 Pulse Rate 66 01/02/18 07:28 Respiratory Rate 18 01/02/18 07:28 Blood Pressure 146/83 H 01/02/18 07:28 Pulse Oximetry 96 01/02/18 07:28 Height/Weight/BMI: Height 1.52 m Weight 86.2 kg Body Mass Index 35.2 - Additional findings Additional findings: General: Alert, awake, oriented 3. Not in acute distress. Head: Pupils equal, round, reactive to light and accommodation. Extraocular movements intact. Neck: No elevation in JVP. No pharyngeal erythema noted. Chest: The patient does not use accessory muscles for breathing. Lungs: Breath sounds audible on auscultation bilateral lung weiner. No wheezing , no rhonchi, no crepitations, no crackles. No pleural rub. CVS: S1, S2 heard on auscultation. Normal rate and rhythm. No murmur, no S3/S4 gallops. Abdomen: Soft, nontender, no distention. Bowel sounds appreciated on auscultation Skin: Ecchymosis noted on the right side of the patient's face. Capillary refill less than 4 seconds. Extremities: 1+ pitting pedal edema bilateral lower extremities. No calf tenderness bilaterally. Palpable dorsalis pedis and posterior tibial pulses bilateral lower extremities. Hospital Course This is a general summary of the patient's hospital course. For more details refer to the complete medical record. Hospital course: 12/29/2017 Admitted to inpatient status under the care of Dr Patel CBC today and improvement in leukocytosis, thrombocytopenia and bandemia Even initial thrombocytopenia and chronic anticoagulation. We will forego any Lovenox. Patient is therapeutic with an INR greater than 2. Continue IV fluid for hydration Will work on pain control. Given both had injury as well as lumbar compression fracture. Encourage work with PT and OT once she is more medically stable. Goal is to return home independently Her for evidence of worsening headache or neurologic changes. Patient may require repeat Ct scan of the head given chronic anticoagulation with head injury SCD to BLE for ppx Monitor Accu-Cheks, continue on home NovoLog and Levemir or glycemic control. Can utilize sliding scale as needed Patient does wish to be a full code and this orders written Will discuss further orders and plan of care with attending, Dr. Patel At time of discharge medical care will return to primary care provider, Dr Alesia John 12/30/2017 Continues to have fever up to 101.7 last night. Patient was switched to IV Rocephin for treatment of Escherichia coli positive UTI Hopeful for less cognitive effects than Levaquin. Preliminary Blood cultures are negative Platelets decreased today to 35. Suspect that possibly yesterdays normal platelet was inaccurate. Did review history patient has had thrombocytopenia intermittently in the past dating back to 2009. Exact etiology is unknown Continue to work on pain control, and [place] and Flexeril may also cause episodes of confusion or encephalopathy Continue to work with PT and OT for ongoing strengthening Check INR today as Coumadin was held yesterday. Consultation placed to pharmacy for INR and Coumadin management. Continue with metoprolol and digoxin. Given history of atrial fibrillation Did discuss long-term discharge plan with patient and daughter. Patient is interested in the IRU unit once medically stable. Her goal is to return home independently 12/31/2017 Continues to have fever up to 101.4 last night. If patient has further temperature spikes, we will repeat blood cultures. Continue IV Rocephin for treatment of UTI with sensitive Escherichia coli Confusion, mental status changes noted earlier during hospital stay improving. INR 1.76, discussed case with pharmacy. Will provide Lovenox 40 mg subcutaneous 1. Recheck INR tomorrow. Pre-meal blood sugar 62 this afternoon. We will switch insulin aspart 10 units subcutaneous 3 times a day before meals. We will continue to monitor blood sugars Preliminary Blood cultures are negative Platelets decreased today to 24. Did review history patient has had thrombocytopenia intermittently in the past dating back to 2009. Exact etiology is unknown Continue to work on pain control, and [place] and Flexeril may also cause episodes of confusion or encephalopathy Continue to work with PT and OT for ongoing strengthening Consultation placed to pharmacy for INR and Coumadin management. Continue with metoprolol and digoxin. Given history of atrial fibrillation 01/01/2018 Patient afebrile overnight. Continue IV Rocephin for treatment of UTI with sensitive Escherichia coli Confusion, mental status changes noted earlier during hospital stay improving. INR 2.4. Continue Coumadin as per pharmacy dosing. 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 We will discontinue insulin aspart 10 units scheduled. Patient will be provided 15 units sliding scale insulin as part subcutaneous 3 times a day before meals. We will continue to monitor blood sugars. We will decrease dose of Levemir 24 units subcutaneous at bedtime. Preliminary Blood cultures are negative [place] and Flexeril may also cause episodes of confusion or encephalopathy Continue to work with PT and OT for ongoing strengthening Continue with metoprolol and digoxin. Given history of atrial fibrillation Patient is interested in the IRU unit once medically stable. Her goal is to return home independently 01/02/2018 Patient resting in bedside chair at the time of interview. Alert, awake, oriented 3. He reports at nighttime, patient had episode of confusion and had difficulty recollecting that she was in the hospital. Patient afebrile for greater than 48 hours INR 3.45 today, continue Coumadin dosing as per pharmacy. Blood sugars 209 last night, 110 earlier this morning. For Escherichia coli UTI, patient has been treated with IV Rocephin during hospital stay. Switch to oral Augmentin on discharge. Continue to work with PT and OT for ongoing strengthening Will add melatonin supplement at nighttime to assist with insomnia. Continue with metoprolol and digoxin. Given history of atrial fibrillation Continue fingersticks before meals and low insulin sliding scale with insulin aspart as per protocol. We will continue reduced dose of Levemir 24 units subcutaneous at bedtime. Time spent with patient: discharge greater than 30 minutes Resuscitation Status: Full Code Discharge Plan - Discharge Disposition Discharge Date: 01/02/18 Disposition: 63 [place] [facility] *Condition: Improved Reason For Visit (Visit label in EMR): sepsis,UTI, L2 fracture - Discharge Medications *Discharge Medications: Continue Atorvastatin Calcium 10 mg PO HS #0 Calcium Carbonate 600 mg PO BIDBS #0 Cholecalciferol (Vitamin D3) [Vitamin D3] 1,000 unit PO DAILY Metoprolol Tartrate 50 mg PO BID FLUoxetine [Prozac] 20 mg PO DAILY cycloSPORINE [Restasis Multidose] 1 drop EACH EYE BID Insulin Aspart [NovoLOG] 15 unit SQ AC Insulin Detemir [Levemir] 38 unit SQ HS Ferrous Sulfate 325 mg PO MOWEFR@1700 Tramadol [Ultram] 50 mg PO Q6HR PRN #20 tab PRN Reason: Pain Metformin HCl [Metformin HCl ER] 500 mg PO BID Losartan [Cozaar] 50 mg PO DAILY Warfarin Sodium 3 mg PO SUMOTUWEFRSA Warfarin Sodium 4 mg PO TH Cyclobenzaprine [Flexeril] 10 mg PO TID Aspirin [Aspirin EC] 81 mg PO DAILY Acetaminophen [Acetaminophen 8 Hour] 650 mg PO TID #0 Digoxin 125 mcg PO NOON #0 Tamsulosin [Flomax] 0.4 mg PO HS #28 cap Discontinued ALPRAZolam [Xanax] 0.5 mg PO DAILY PRN PRN Reason: Anxiety - Discharge Packet/Instructions *Diet: ADA 2000 kcal diabetic diet *Activity: As recommended by physical therapy *Pain Management/Treatment: Lortab medication as needed for pain *Wound Care: Not applicable *Expected Signs/Symptoms: Continued strengthening with continued PT/OT *Notify Physician if: Chest pain, palpitations, shortness of breath, abdominal pain, intractable nausea, vomiting, diarrhea or any other concerning findings *During Business Hours Contact: To be determined on discharge from rehabilitation *After Business Hours Contact: To be determined on discharge from rehabilitation *Pending Lab/Results: Will review at F/U Appt - IRU/GEN Discharge/Transfer - Referrals/Follow Up *Referrals/Follow Up: Alesia John MD [Primary Care Provider] - - Patient Handouts Patient Handouts: Urinary Tract Infection in Women (GEN), Sepsis (GEN) - Dismissal Complete Discharge Instructions are:: Complete Physician Narrative - Narrative Attestation Narrative: Date: 01/02/18 Time: 6612
[2018-01-02] MEDS: TRAMADOL 50 MG TABLET PO PRN (10:22)
== END 2018-01-02 10:45 | DRG 872 ==
LOC: ED 19:35 → EDHOLD 12-29 00:06 → SUATTDRO 12-29 00:06 → MED 12-29 01:45
PROVIDERS: ADMIT Internal Medicine; ATTEND Internal Medicine

== ENCOUNTER 2018-01-02 10:50 | Inpatient (IN) ==
--- OUTSIDE RECORDS SUMMARY | 2018-01-02 11:12 | External Medical Summary ---
:1945 Author Organization [facility] Address [address] [place] [address] Care Team Providers Name Role Phone Alex Hyman Unavailable Unavailable PROBLEMS Type Condition ICD9-CM Code SQT65-PS Onset Condition SNOMED Code Code Dates Status Problem Diabetes Mellitus, 250.00 Active 862188861 Type II, Not Stated As Uncontrolled Problem Hyperlipidemia E78.5 Active 84246564 Problem Essential (primary) I10 Active 90627657 hypertension Problem Cardiomyopathy, I42.9 Active 49944848 unspecified type Problem Mixed E78.2 Active 748763109 hyperlipidemia Problem Atrial fibrillation I48.91 Active 35118799 Problem CAD (coronary I25.10 Active 78895309 artery disease) Problem Type 2 diabetes E11.9 Active 914068722 mellitus without complications Problem produce weigher current Z79.01 Active 071877330 use of anticoagulant Problem Pre-operative V72.81 Active 241239842 cardiovascular examination Problem Hypertension, 401.1 Active 51428266 Benign Problem Chest pain 786.50 Active 00024511 Problem Dyslipidemia 272.4 Active 468315269 Problem CAD 414.01 Active 12190722 Problem Coronary Artery 414.01 Active 89108055 Disease Problem Dyslipidemia 272.4 Active 150249915 Problem Atrial fibrillation 427.31 Active 49967952 ALLERGIES Substance Reaction Event Type Date Status JAISON Inhibitors bronchitis Non Drug Allergy Feb, Active ENCOUNTERS Encounter Location Date Diagnosis [address] Feb, Cardiology-[address] [place] [address] Aug, Atrial fibrillation I48.[address] [address] [place] [address] [place] [address] Aug, CAD (coronary artery [address] disease) I25.10 ; Atrial [address] fibrillation I48.91 ; Cardiomyopathy, unspecified type I42.9 ; produce weigher current use of anticoagulant Z79.01 ; Essential (primary) hypertension I10 ; Mixed hyperlipidemia E78.2 and Type 2 diabetes mellitus without complications E11.[address] 20 Aug, 2017 CAD (coronary artery [address] disease) I25.10 ; Essential [address] (primary) hypertension I10 and Atrial fibrillation I48.[address] 20 Aug, 2017 Atrial fibrillation I48.91 ; [address] [place] [address] anticoagulant Z79.01 ; CAD (coronary artery disease) I25.10 ; Essential (primary) hypertension I10 ; Mixed hyperlipidemia E78.2 and Type 2 diabetes mellitus without complications E11.[address] 15 Feb, 2017 Atrial fibrillation I48.91 ; [address] [place] [address] anticoagulant Z79.01 ; CAD (coronary artery disease) I25.10 ; Essential (primary) hypertension I10 ; Mixed hyperlipidemia E78.2 and Type 2 diabetes mellitus without complications E11.[address] 30 Nov, 2015 Atrial fibrillation I48.91 ; [address] [place] [address] anticoagulant Z79.01 ; CAD (coronary artery disease) I25.10 ; Hyperlipidemia E78.5 ; Essential (primary) hypertension I10 and DM (diabetes mellitus) E11.[address] Nov, CAD (coronary artery [address] disease) I25.10 [address] Nov, [address] [address] Nov, [address] [address] Nov, Atrial fibrillation 427.31 ; [address] Chronic Anticoagulation [address] V58.61 ; Coronary Artery Disease 414.01 ; Dyslipidemia 272.4 ; Hypertension, Benign 401.1 and Diabetes Mellitus, Type II, Not Stated As Uncontrolled 250.[address] October, Cardiology-[address] [address] [place] [address] [place] October, Atrial fibrillation 427.[address] [address] [place] [address] [place] October, Atrial fibrillation 427.31 ; [facility]-[address] Coronary Artery Disease [address] 414.01 ; Dyslipidemia 272.4 ; Hypertension, Benign 401.1 and Diabetes Mellitus, Type II, Not Stated As Uncontrolled 250.00 [place] [address] [place] Aug, [address] [address] [place] [address] [place] Aug, Coronary Artery Disease [address] 414.01 ; Dyslipidemia 272.4 [address] and Hypertension, Benign 401.1 [place] [address] [place] Jul, Coronary Artery Disease [address] 414.01 ; Pre-operative [address] cardiovascular examination V72.81 ; Dyslipidemia 272.4 and Hypertension, Benign 401.1 [place] [address] [place] Jul, CAD 414.[address] [address] [place] [address] [place] Jul, [address] [address] [place] [address] [place] Jul, [address] [address] [place] [address] [place] Jun, Coronary Artery Disease [address] 414.01 ; Dyslipidemia 272.4 [address] and Hypertension, Benign 401.1 [place] [address] [place] Nov, [address] [address] [place] [address] [place] May, [address] [address] [place] [address] [place] Jan, [address] [address] [place] [address] [place] Jan, [address] [address] [place] [address] [facility] 14 Dec, [address] [address] [place] [address] [facility] Nov, [address] [address] [place] [address] [place] [address] Nov, [address] [address] [place] [address] [place] [address] Nov, [facility]-[address] [address] [place] [address] [place] [address] Nov, Chest pain 786.50 ; Coronary [facility]-[address] Artery Disease 414.01 ; [address] Dyslipidemia 272.4 and Hypertension, Benign 401.[address] Nov, CAD 414.01 ; Chest pain [address] 786.50 ; Dyslipidemia 272.4 [address] and Hypertension 401.[address] Nov, CAD 414.01 ; Chest pain [address] 786.50 ; Dyslipidemia 272.4 [address] and Hypertension 401.[address] Nov, [address] [address] Jul, CAD 414.01 ; Dyslipidemia [address] 272.4 ; Hypertension, Benign [address] 401.1 and Pre-operative cardiovascular examination V72.[address] Jun, [address] [address] Jun, Chest pain 786.50 ; [address] Dyslipidemia 272.4 ; [address] Hypertension, Benign 401.1 and Pre-operative cardiovascular examination V72.81 IMMUNIZATIONS No Known Immunizations SOCIAL HISTORY Never Assessed REASON FOR VISIT ^[facility] FU 1 YR, EKG PLAN OF CARE Activity Details Follow Up 6 Months, with a 2 D echocardiogram, with an adenosine myocardial perfusion scan Reason: VITAL SIGNS Height 63 in 2017-02-26 Weight 180 lbs 2017-02-26 BMI 31.88 kg/m2 2017-02-26 Oximetry 98 % 2017-02-26 Heart Rate 63 /min 2017-02-26 Blood pressure systolic 130 mm Hg 2017-02-26 Blood pressure diastolic 80 mm Hg 2017-02-26 MEDICATIONS Medication Instructions Dosage Frequency Start End Duration Status Date Date Warfarin Sodium 3 Orally 5 days a 1 tablet 10 November, Active MG week/4mg 2013 and wednesday Nitroglycerin 0.4 Sublingual 1 tablet Active MG every 0 hrs under the tongue and allow to dissolve as needed Levemir 100 Active UNIT/ML NovoLog 100 Active UNIT/ML Losartan Potassium Orally Once a 1/2 tab 24h Active 50 MG day Tylenol Arthritis Orally every 8 1 tablet as 8h Active Pain 650 MG hrs needed Metformin HCl 500 Orally Twice a 1 tablet 12h Active MG day with meals Metoprolol Orally Twice a 1 tablet 12h Active Tartrate 50 MG day Calcium Carbonate Orally bid 1 tablet 12h Active 600 MG Fluoxetine HCl 20 Orally Once a 1 capsule 24h Active MG day in the morning Vitamin D 1000 Orally Once a 1 tablet 24h Active UNIT day Systane 0.4-0.3 % Ophthalmic 24 1 drop into Active time(s) a day affected eye as needed Aspirin Adult Low Orally Once a 1 tablet 24h Active Dose 81 MG day Lipitor 10 MG Orally Once a 1 tablet 24h Active day Restasis 0.05 % Ophthalmic 1 into 12h Active Twice a day affected eye Cyclobenzaprine Orally Three 1 tablet as 8h Active HCl 10 MG times a day needed Digoxin 0.25 MG Orally Once a 1 tablet 24h Active day RESULTS Name Result Date Reference Range AtriaECW PROCEDURES Procedure Date Ordered Result Body Site ELECTROCARDIOGRAM, COMPLETE Feb 26, 2017 INSTRUCTIONS MEDICATIONS ADMINISTERED No Known Medications MEDICAL [...]
[2018-01-02 11:15] VITALS: BMI 37.8
[2018-01-02] MEDS ORDERED: DEXTROSE 50% SYRINGE 50ml (1 AMP) IVP PRN (11:27)
[2018-01-02] MEDS ORDERED: FALL RISK - PHARMACY CONSULT MC ONE ×2 (11:27)
[2018-01-02] MEDS: DIGOXIN 250 MCG TABLET PO SCH (12:43)
[2018-01-02] MEDS: CYCLOBENZAPRINE 10 MG TABLET PO SCH (17:40)
[2018-01-02] MEDS: AMOX/CLAV 875 MG/125 MG TABLET PO SCH (17:41)
[2018-01-02] MEDS: CALCIUM CARBONATE 600 MG TABLET PO SCH (17:46)
[2018-01-02] MEDS: TRAMADOL 50 MG TABLET PO PRN (19:31)
[2018-01-02] MEDS: ATORVASTATIN 10 MG TABLET PO SCH (21:17)
[2018-01-02] MEDS: TAMSULOSIN 0.4 MG CAPSULE PO SCH (21:17)
[2018-01-02] MEDS: CycloSPORINE 0.05% EYE DROPS 4ml EACH EYE SCH (21:17)
[2018-01-02] MEDS: INSULIN DETEMIR 100unit/ml INJECTION SQ SCH (21:18)
[2018-01-03] MEDS: CYCLOBENZAPRINE 10 MG TABLET PO SCH ×4 (04:32→21:12)
[2018-01-03] MEDS: TRAMADOL 50 MG TABLET PO PRN ×3 (06:46→21:15)
--- NOTE | 2018-01-03 07:49 | IRU History & Physical Report ---
HPI IRU Date: Date: 01/03/18 Time: 07 Chief complaint: generalized weakness HPI: This is a 72 yo female who is transferred to IRU from [place] [facility] She was admitted 12/29 after having multiple falls. She was admitted for sepsis, UTI , thrombocytopenia and L2 compression fracture. She had become increasingly weaker and had become dizzy when getting up and falling. She also had some confusion. She sustained a laceration above her R eyebrow which was fixed in the ED. She recently started using a 4 wheeled walker to ambulate in her home. Normally she could walk over to the main [place] for [employer] which is close to a block. She had a leukocytosis and elevated lactic acid of 2.4 on admission to acute care. Also her platelet level was 22, 000. They started her on Levaquin. She was already on Coumadin for atrial fibrillation and it was therapeutic. She has significant swelling over R shoulder and brusing on R side of face. She has decreased range of motion due to pain and is having difficulty just ambulating to the bathroom. Prior to admission she could ambulate through her home and outside the home with the assistance of a walker to was able to complete self cares with modified independence. [facility] Patient Stated Medical History Dementia Yes Syncope Yes Cataracts Yes Other HEENT Yes: WEARS GLASSES Cardiac Arrhythmia Yes: A-FIB Hypertension Yes Myocardial Infarction Yes: stent x1 Sleep Apnea No Other Respiratory Yes: SOA Diabetes Mellitus Type 1 Yes Diabetes Mellitus Type 2 Yes Cirrhosis No Constipation No Gastroesophageal Reflux No Disease Gastrointestinal Bleeding No Hepatitis No Hiatal Hernia No Obstructive Bowel No Ulcer No Other GI Yes: HX E-COLI Hx Incontinence Yes Hx Kidney Stones Yes Hx Renal Disease No Clotting Problems Yes: COUMADIN Osteoarthritis Yes: back Other Musculoskeletal Yes: RHABDOMYLOSIS MRSA Yes: 1994 Sepsis Yes Blood Transfusions Yes Depression Yes Ovarian Cysts Yes: 16lb cyst Post Menopausal Yes Medical History Updates: Anxiety. A-fib. HLD. HTN. Osteoporosis. coronary artery disease status post lad stent about 2004. diabetes mellitus on insulin. nephrolithiasis. prior urinary tract infections. Depression. Type II DM insulin requiring Surgical History: appendectomy at age 11. bilateral total knee arthroplasties. right ankle repair. repair of a tib/fib fracture. CAD LAD stent 2004 Family History Updates: No significant updates to family hx reported - Social History Smoking status: Never smoker Substance use type: does not use Alcohol intake frequency: does not drink Housing: house Current occupational status: retired (Nurse) Current residence: Independent Living Review of Systems - Constitutional Constitutional: Present: weakness - Cardiovascular Cardiovascular: Absent: chest pain, palpitations - Respiratory Respiratory: Present: dyspnea on exertion - Gastrointestinal Gastrointestinal: Absent: abdominal pain - Genitourinary Genitourinary: Absent: flank pain - Musculoskeletal Musculoskeletal: Present: muscle weakness - Hematologic/Lymphatic Hematologic/Lymphatic: Present: easy bruising Medications Home Medications Medication Instructions Recorded Confirmed Type Acetaminophen [Acetaminophen 8 325 - 650 mg PO Q5H PRN #0 07/28/16 01/02/18 History Hour] Atorvastatin Calcium 10 mg PO HS #0 07/28/16 01/02/18 History Calcium Carbonate 600 mg PO BIDBS #0 07/28/16 01/02/18 History Digoxin 125 mcg PO NOON #0 07/28/16 01/02/18 History Cholecalciferol (Vitamin D3) 1,000 unit PO DAILY 07/16/17 01/02/18 History [Vitamin D3] FLUoxetine [Prozac] 20 mg PO DAILY 07/16/17 01/02/18 History Metoprolol Tartrate 50 mg PO BIDWM 07/16/17 01/02/18 History cycloSPORINE [Restasis Multidose] 1 drop EACH EYE BID 07/16/17 01/02/18 History Ferrous Sulfate 325 mg PO MOWEFR@1700 08/02/17 01/02/18 History Insulin Aspart [NovoLOG] 15 unit SQ AC 08/02/17 01/02/18 History Insulin Detemir [Levemir] 24 unit SQ HS 08/02/17 01/02/18 History Tamsulosin [Flomax] 0.4 mg PO HS #28 cap 08/02/17 01/02/18 Rx Tramadol [Ultram] 50 mg PO Q6HR PRN #20 tab 08/02/17 01/02/18 Rx Aspirin [Aspirin EC] 81 mg PO DAILY 12/28/17 01/02/18 History Cyclobenzaprine [Flexeril] 10 mg PO TID 12/28/17 01/02/18 History Losartan [Cozaar] 50 mg PO DAILY 12/28/17 01/02/18 History Metformin HCl [Metformin HCl ER] 500 mg PO BID 12/28/17 01/02/18 History Warfarin Sodium 3 mg PO SUMOTUWEFRSA 12/28/17 01/02/18 History Warfarin Sodium 4 mg PO TH 12/28/17 01/02/18 History Amoxicillin/Potassium Clav 1 each PO Q12H 01/02/18 01/02/18 History [Augmentin 875-125 Tablet] Hydrocodone/APAP 5/325 [[place] 1 - 2 tab PO Q4H PRN 01/02/18 01/02/18 History 5/325] Allergies Allergy/AdvReac Type Severity Reaction Status Date / Time JAISON Inhibitors AdvReac Intermediate Cough Verified 12/28/17 20:21 Results IRU - Labs Labs: WBC 6.7, hgb 9.9, platelets 95. Na 143, K 3.8, Cl106, CO2 28, BUN 12.0, Cr 0.8 , Glucose 87. INR 3.09 Exam Vital Signs: Temperature 98.3 F 01/03/18 07:19 Pulse Rate 72 01/03/18 07:19 Respiratory Rate 18 01/03/18 07:19 Blood Pressure 157/90 H 01/03/18 07:19 Pulse Oximetry 95 01/03/18 07:19 Height/Weight/BMI: Height 1.52 m Weight 87.9 kg Body Mass Index 37.8 - Constitutional Present: no acute distress - Routine HEENT Exam Comments: bruising R side of her face, laceration with sutures over R eyebrow - Routine Neck Exam Present: supple. Absent: carotid bruit - Routine Respiratory Exam Present: CTA bilaterally. Absent: wheezes, crackles - Routine Cardiovascular Exam Present: RRR, no murmur - Routine Abdominal Exam Present: soft, normoactive bowel sounds, non distended. Absent: tenderness - Routine Back/Spine/Pelvis Exam Comments: pain in low back in L2 area - Routine Skin Exam Present: warm - Routine Neurological Exam Present: alert, oriented X3 - Routine Psychiatric Exam Present: normal affect IRU A/P (1) Generalized weakness Current visit: Yes Status: Acute Not ambulating as far as she normally does, only about 70 feet. She will be participating in OT and PT to get her back to her normal function which is being able to ambulate to other buildings for games and such. (2) Sepsis Qualifiers: Sepsis type: sepsis due to unspecified organism Qualified Code(s): A41.9 - Sepsis, unspecified organism Current visit: No Status: Resolved (3) UTI (urinary tract infection) Qualifiers: Urinary tract infection type: acute cystitis Hematuria presence: without hematuria Qualified Code(s): N30.00 - Acute cystitis without hematuria Current visit: No Status: Resolved (4) Facial laceration Qualifiers: Encounter type: initial encounter Qualified Code(s): S01.81XA - Laceration without foreign body of other part of head, initial encounter Current visit: No Status: Acute (5) Compression fracture of L2 Qualifiers: Encounter type: initial encounter Fracture type: closed Qualified Code(s) : S32.020A - Wedge compression fracture of second lumbar vertebra, initial encounter for closed fracture Current visit: No Status: Acute (6) Thrombocytopenia Current visit: No Status: Chronic Platelet count is coming up. Will continue to monitor. Hospitalists are following. (7) Atrial fibrillation Current visit: Yes Status: Chronic Will continue coumadin treatment. - Course Hospital Course: Giana Mcleod, DO:
[2018-01-03] MEDS ORDERED: WARFARIN - PHARMACY CONSULT MC ONE (08:07)
--- NOTE | 2018-01-03 08:12 | IRU 24Hr Post Admit Eval ---
24 Hr Post Admission Physical - Relevant Changes Relevant Changes: No Reviewed: I have reviewed the patient's information and concur with the finding and results of the pre-admission screen. Certification: I certify the patient for rehabilitation. - Patient Condition (1) Generalized weakness Status: Acute Code(s): R53.1 - Weakness Classification: Present on IRF Admission, IRF Tx That Should Address Diagnosis (2) Sepsis Status: Resolved Qualifiers: Sepsis type: sepsis due to unspecified organism Qualified Code(s): A41.9 - Sepsis, unspecified organism Code(s): A41.9 - Sepsis, unspecified organism Classification: Diagnosis Requiring Medical Follow Up (3) UTI (urinary tract infection) Status: Resolved Qualifiers: Urinary tract infection type: acute cystitis Hematuria presence: without hematuria Qualified Code(s): N30.00 - Acute cystitis without hematuria Code(s): N39.0 - Urinary tract infection, site not specified Classification: Diagnosis Requiring Medical Follow Up (4) Facial laceration Status: Acute Qualifiers: Encounter type: initial encounter Qualified Code(s): S01.81XA - Laceration without foreign body of other part of head, initial encounter Code(s): S01.81XA - Laceration without foreign body of other part of head, initial encounter Classification: Present on IRF Admission, Diagnosis Requiring Medical Follow Up (5) Compression fracture of L2 Status: Acute Qualifiers: Encounter type: initial encounter Fracture type: closed Qualified Code(s) : S32.020A - Wedge compression fracture of second lumbar vertebra, initial encounter for closed fracture Code(s): S32.020A - Wedge compression fracture of second lumbar vertebra, initial encounter for closed fracture Classification: Present on IRF Admission, IRF Tx That Should Address Diagnosis, Diagnosis Requiring Medical Follow Up (6) Thrombocytopenia Status: Chronic Code(s): D69.6 - Thrombocytopenia, unspecified Classification: Present on IRF Admission, Diagnosis Requiring Medical Follow Up (7) Atrial fibrillation Status: Chronic Code(s): I48.91 - Unspecified atrial fibrillation Classification: Present on IRF Admission, Diagnosis Requiring Medical Follow Up - Prior Functional Status Lives With: Alone Residence Type: Independent Living Assitive Devices: Four Wheeled Walker Prior Functional Status: Used assistive device - Current Functional Status Current Level of Function: Can only ambulate 70 feet at this time and trouble getting to bathroom by herself. Failed Alternative Therapy: Arrived from Acute Care Patient Requirements: The patient requires oversight by rehabilitation physician to manage their rehabilitation treatment plan and multidisciplinary approach to care that can only be provided in an IRF and requires a multidisciplinary approach to care, provided by professional PTs, OTs, STs, dieticians, RTs, rehabilitation nurses and is not available in lesser levels of care. Limitations Req: Limited Mobility Physical Therapy Minutes: 90 Occupational Therapy Minutes: 90 Therapy: The patient is to receive therapy at least 5 days a week. ROM Deficit: Right Upper Extremity ROM Comment: Generalized weakness in both legs, pain in low back causing mobility issues - Complications/Comorbidities Impact on Functional Outcomes: The patient's L2 compression fracture and recent sepsis illness with low platelets will likely negatively impact their functional outcome. Barriers to Discharge: Weakness, Balance, Endurance, Pain Control - Plan to Avoid Complications Plan to Avoid Complications: The patient cannot receive this care in a lesser intensive setting such as Long Term or Outpatient Therapy due to the patient requiring the following. This patient is medically complex with diagnoses including diabetes mellitus, recent sepsis, L2 compression fracture, atrial fibrillation, thrombocytopenia and recent falls with multiple traumatic injuries. These diagnoses require a multidisciplinary approach with PT and OT and medical supervision.
[2018-01-03] MEDS: FERROUS SULFATE 324 MG TABLET PO SCH (08:25)
[2018-01-03] MEDS: AMOX/CLAV 875 MG/125 MG TABLET PO SCH ×2 (08:25→17:26)
[2018-01-03] MEDS: FLUoxetine 20 MG CAPSULE PO SCH (08:25)
[2018-01-03] MEDS: CycloSPORINE 0.05% EYE DROPS 4ml EACH EYE SCH ×2 (08:26→21:12)
[2018-01-03] MEDS: CALCIUM 600 + VIT D 400 TABLET PO SCH ×3 (08:37→17:25)
[2018-01-03] MEDS ORDERED: CALCIUM 600 + VIT D 400 TABLET PO SCH (08:45)
--- NOTE | 2018-01-03 08:58 | Pharmacy Consult ---
Pharmacy Consult-Warfarin - Laboratory Information 01/03/18 01/03/18 04:36 04:36 Hgb 9.9 L Hct 30.5 L INR 3.09 H - Consult Information COUMADIN CONSULT (Initial): Dx: WEAKNESS Baseline INR = 3.09 72 yr old female 5'0" admitted from floor to IRU with generalized weakness. Pt had sepsis with UTI. She is now off the Rocephin and IS on Augmentin 875 mg for the UTI. She takes Warfarin for A-Fib. Her home dose regimen of warfarin is 3 mg six days a week and 4 mg once a week. The Augmentin can cause an elevated INR. Will give lower warfarin doses then her home med regimen until she is off the antibiotic. Pharmacy will continue to monitor the INR and adjust the warfarin dose as needed. DATE INR DOSE 01/02 3.45 HOLD dose 01/03 3.09 will give 1 MG warfarin today. Thank you. Stefany Jade, PharmD
[2018-01-03] MEDS ORDERED: WARFARIN 1 MG TABLET PO SCH (12:00)
--- NOTE | 2018-01-03 12:00 | Consult Note ---
Consult Information - Data of Consult Consult date: 01/03/18 Requesting Physician: Richard Magallanes MD Primary Care Provider: Alesia Sesay MD - Consult Narrative Reason for consult: Medical management History of present illness: Patient is a 72-year-old female who resides independently at [facility], independent living at [facility]. She sees Dr. Alesia Sesay for primary care. She reported to the emergency room on 12/28/17 following a fall where she hit her head and required laceration repair. CT scan of her head revealed no acute intracranial hemorrhage. She was found to have an L2 compression fracture. At that time, she was also septic likely secondary to urinary tract infection. She was treated with Levaquin in the ER followed by 4 days of Rocephin IV. She was converted to Augmentin po on transfer to IRU and will start that this evening. Patient was seen sitting in her room this morning. She denies any further dysuria or urinary symptoms. Her main complaint is pain in her shoulder and her back. Past Medical History Medical History Updates: Anxiety. A-fib. HLD. HTN. Osteoporosis. coronary artery disease status post lad stent about 2004. nephrolithiasis. prior urinary tract infections. Depression. Type II DM insulin requiring Surgical History: appendectomy at age 11. bilateral total knee arthroplasties. strabismus surgeries. right ankle repair. repair of a tib/fib fracture. CAD LAD stent 2004. hysterectomy age 21's for possible cervical cancer. 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 Alesia Sesay Review of Systems All systems PM: 10-point ROS was reviewed, no additional remarkable complaints except (R arm pain, back pain, bruising R eye/face/shoulder, chronic strabismus) Medications Home Medications Medication Instructions Recorded Confirmed Type Acetaminophen [Acetaminophen 8 325 - 650 mg PO Q5H PRN #0 07/28/16 01/02/18 History Hour] Atorvastatin Calcium 10 mg PO HS #0 07/28/16 01/02/18 History Calcium Carbonate 600 mg PO BIDBS #0 07/28/16 01/02/18 History Digoxin 125 mcg PO NOON #0 07/28/16 01/02/18 History Cholecalciferol (Vitamin D3) 1,000 unit PO DAILY 07/16/17 01/02/18 History [Vitamin D3] FLUoxetine [Prozac] 20 mg PO DAILY 07/16/17 01/02/18 History Metoprolol Tartrate 50 mg PO BIDWM 07/16/17 01/02/18 History cycloSPORINE [Restasis Multidose] 1 drop EACH EYE BID 07/16/17 01/02/18 History Ferrous Sulfate 325 mg PO MOWEFR@1700 08/02/17 01/02/18 History Insulin Aspart [NovoLOG] 15 unit SQ AC 08/02/17 01/02/18 History Insulin Detemir [Levemir] 24 unit SQ HS 08/02/17 01/02/18 History Tamsulosin [Flomax] 0.4 mg PO HS #28 cap 08/02/17 01/02/18 Rx Tramadol [Ultram] 50 mg PO Q6HR PRN #20 tab 08/02/17 01/02/18 Rx Aspirin [Aspirin EC] 81 mg PO DAILY 12/28/17 01/02/18 History Cyclobenzaprine [Flexeril] 10 mg PO TID 12/28/17 01/02/18 History Losartan [Cozaar] 50 mg PO DAILY 12/28/17 01/02/18 History Metformin HCl [Metformin HCl ER] 500 mg PO BID 12/28/17 01/02/18 History Warfarin Sodium 3 mg PO SUMOTUWEFRSA 12/28/17 01/02/18 History Warfarin Sodium 4 mg PO TH 12/28/17 01/02/18 History Amoxicillin/Potassium Clav 1 each PO Q12H 01/02/18 01/02/18 History [Augmentin 875-125 Tablet] Hydrocodone/APAP 5/325 [[place] 1 - 2 tab PO Q4H PRN 01/02/18 01/02/18 History 5/325] Allergies Allergy/AdvReac Type Severity Reaction Status Date / Time JAISON Inhibitors AdvReac Intermediate Cough Verified 12/28/17 20:21 Exam Vital Signs: Temperature 98.3 F 01/03/18 07:19 Pulse Rate 72 07/23/18 07:19 Respiratory Rate 18 01/03/18 07:19 Blood Pressure 157/90 H 01/03/18 07:19 Pulse Oximetry 95 01/03/18 07:19 Height/Weight/BMI: Height 1.52 m Weight 87.9 kg Body Mass Index 37.8 - Constitutional Present: no acute distress, well nourished, well developed - Routine HEENT Exam Head: Present: laceration (above R eye - sutures intact - healing) ENT: Present: mucous membranes moist, oropharynx clear Comments: both eyes deviate medially, R>L - Routine Neck Exam Absent: lymphadenopathy - Routine Respiratory Exam Present: CTA bilaterally. Absent: wheezes - Routine Cardiovascular Exam Present: RRR, no murmur - Routine Abdominal Exam Present: soft, normoactive bowel sounds. Absent: tenderness, distended - Routine Extremities Exam Present: no edema, normal capillary refill Comments: pigmentation and muscle atrophy to R ankle area r/t previous surgeries Pain over anterior shoulder with palpation. Has pain to shoulder and R upper arm with active ROM, but has decent ROM. - Routine Skin Exam Present: dry, warm Comments: bruising around R eye extending down R cheek to r side of neck bruising to R shoulder - Routine Neurological Exam Present: alert, oriented X3, CN II-XII intact - Routine Psychiatric Exam Present: normal affect, cooperative Results - Labs CBC & Chem 7: 01/03/18 04:36 01/03/18 04:36 Assessment and Plan Assessment and Plan: Assessment Recent sepsis secondary to UTI - resolved UTI - currently on Augmentin Fall with head injury and L2 fx Laceration above right eye - sutured and healing Lumbar back pain with L2 compression fracture (chronic per Radiology interpretation) A-fib Type II DM, insulin requiring HLD Hypertension Osteoporosis Coronary artery disease status - post LAD stent about 2004 Depression/Anxiety H/o Nephrolithiasis Plan Agree with IRU admission for further strengthening and pain control Follow BS's. At home, it appears she was taking NovoLog 15 units before meals and Levemir 38 units at at bedtime. During her medical stay, her Levemir was decreased to 24 units and she was on sliding scale. Will leave her on the Levemir and sliding scale for now and as we have more readings, can convert her SSI back to NovoLog before meals. Pharmacy to manage warfarin. Need to be cautious given the initiation of Augmentin. Completed 1 day Levaquin and 4 days Rocephin on medical floor, now on Augmentin. Plan to complete a 7 day course of antibiotics. Discussed with Dr. Colunga, ID. Normal renal sono 10/29. Sutures placed 12/28/17. These will be removed today. Follow hgb -9.9 today. (Previous records show ave of 11 in 08/01) Care to return to Dr. Alesia Sesay on discharge. DVT Prophylaxis: Coumadin Resuscitation Status: Full Code - Physician Narrative Physician: Everton Valle Narrative: Date: 01/03/18 Time: 1157 I have independently interviewed and examined patient. Patient chart reviewed. Case discussed with my DOUGH MOLDER HAND. Care plan developed with my supervision, agree with above. A pleasant 72-year-old female patient initially admitted to acute care hospital status post fall and history of recurrent fall and was later on noted to have L2 compression fracture on imaging and UTI with Escherichia coli. Patient treated with IV Rocephin during hospital stay and later on switched to oral Augmentin which will be continued to complete course in rehabilitation unit. Hemoglobin 9.9 today, patient afebrile, reports having a bowel movement earlier today. No chest pain, no palpitations, no shortness of breath, no subjective fever, no chills. No reported flank pain or difficulty in urination. Sutures on the right side of forehead have been removed. PFSH: As above Review of systems: 10 point review as above Physical exam: AAO x 3, NAD PERRLA, right eye esotropia S1 and S2 heard on auscultation, no murmurs Lungs clear to auscultation bilaterally, no wheezing, no crackles Abdomen soft, nontender, positive bowel sounds No edema bilateral lower extremities. Assessment: Recurrent falls. Recent sepsis from UTI with Escherichia coli, resolved. Recent L2 compression fracture. A. fib. Hypertension. Hyperlipidemia. Insulin-dependent type 2 diabetes mellitus. Osteoporosis. Coronary artery disease. Depression. Plan: Patient symptomatically stable, will require continued physical therapy and rehabilitation while in IRU. Currently on oral Augmentin, will continue to complete course. Case discussed by DOUGH MOLDER HAND with Dr. Colunga from infectious disease. We will continue to monitor blood sugars, fasting blood sugar 87 today, will continue Levemir 24 units at bedtime and sliding scale. Patient's blood sugar this afternoon 243, restarted pre-meal insulin aspart 7 units. Hospital Course Summary Disclaimer: The visit summary below is not to be considered part of the above Progress Note. Hospital Course: 01/03/18 Agree with IRU admission for further strengthening and pain control Follow BS's. At home, it appears she was taking NovoLog 15 units before meals and Levemir 38 units at at bedtime. During her medical stay, her Levemir was decreased to 24 units and she was on sliding scale. Will leave her on the Levemir and sliding scale for now and as we have more readings, can convert her SSI back to NovoLog before meals. Pharmacy to manage warfarin. Need to be cautious given the initiation of Augmentin. Completed 1 day Levaquin and 4 days Rocephin on medical floor, now on Augmentin. Plan to complete a 7 day course of antibiotics. Discussed with Dr. Colunga, ID. Sutures placed 12/28/17. These will be removed today. Follow hgb -9.9 today. (Previous records show ave of 11 in 08/01) Care to return to Dr. Alesia Sesay on discharge. Addendum entered and electronically signed by MARY Gaston 01/03/18 15:01 : Patient was concerned because her metformin and pre-meal insulins were not being given. (Metformin was held on admission due to sepsis. Due to low blood sugars, pre-meal insulin was discontinued and she was switched to sliding scale , and her Levemir was decreased.) Her post lunch blood sugar today was greater than 240. At this time, will give her 7 units of NovoLog and resume pre-meal insulin at 7 units, continue sliding scale insulin, continue Levemir at 24 units , resume her metformin, and adjust insulin as needed from there. (Her home routine was Humalog 15 mg before meals and 38 units Levemir at at bedtime.)
[2018-01-03] MEDS: DIGOXIN 125 MCG TABLET PO SCH (12:27)
[2018-01-03] MEDS: INSULIN ASPART 100unit/ml INJECTION SQ SCH ×2 (15:11→17:25)
[2018-01-03] MEDS: METFORMIN 500 MG TABLET PO SCH (17:26)
[2018-01-03] MEDS: ATORVASTATIN 10 MG TABLET PO SCH (21:12)
[2018-01-03] MEDS: TAMSULOSIN 0.4 MG CAPSULE PO SCH (21:13)
[2018-01-03] MEDS: INSULIN DETEMIR 100unit/ml INJECTION SQ SCH (21:13)
[2018-01-03] MEDS: INSULIN ASPART 100unit/ml INJECTION SQ PRN (21:14)
[2018-01-04] MEDS: TRAMADOL 50 MG TABLET PO PRN ×2 (07:29→12:03)
[2018-01-04] MEDS: CALCIUM CARBONATE 600 MG TABLET PO SCH (08:05)
[2018-01-04] MEDS: DIGOXIN 250 MCG TABLET PO SCH (08:05)
--- NOTE | 2018-01-04 08:13 | IRU Progress Note ---
- Subjective/Serverity of Illness Date: 01/04/18 Patient has a headache today on the side of her face where she fell. The hospitalist service removed her stitches yesterday. Not really having much other pain. Using a walker and seems to be doing well with that. Exam Vital Signs: Temperature 98.5 F 01/04/18 07:25 Pulse Rate 69 01/04/18 07:25 Respiratory Rate 16 01/04/18 07:25 Blood Pressure 135/74 01/04/18 07:25 Pulse Oximetry 94 01/04/18 07:25 Height/Weight/BMI: Height 1.52 m Weight 87.9 kg Body Mass Index 37.8 - Constitutional Present: no acute distress - Routine HEENT Exam Comments: bruising on R side of her face - Routine Respiratory Exam Present: CTA bilaterally - Routine Cardiovascular Exam Present: RRR, no murmur - Routine Abdominal Exam Present: soft, normoactive bowel sounds. Absent: tenderness - Routine Extremities Exam Absent: edema Results IRU - Labs Labs: Laboratory Results - last 24 hr 01/03/18 01/03/18 01/03/18 09:58 14:11 16:37 INR Glucometer 184 243 150 01/03/18 01/04/18 01/04/18 19:55 04:18 05:39 INR 1.99 H Glucometer 156 84 IRU A/P (1) Generalized weakness Current visit: Yes Status: Acute Will work with OT and PT to get stronger and is using a walker. (2) Sepsis Qualifiers: Sepsis type: sepsis due to unspecified organism Qualified Code(s): A41.9 - Sepsis, unspecified organism Current visit: No Status: Resolved (3) UTI (urinary tract infection) Qualifiers: Urinary tract infection type: acute cystitis Hematuria presence: without hematuria Qualified Code(s): N30.00 - Acute cystitis without hematuria Current visit: No Status: Resolved (4) Facial laceration Qualifiers: Encounter type: initial encounter Qualified Code(s): S01.81XA - Laceration without foreign body of other part of head, initial encounter Current visit: No Status: Acute Healing well. Stitches taken out yesterday. (5) Compression fracture of L2 Qualifiers: Encounter type: initial encounter Fracture type: closed Qualified Code(s) : S32.020A - Wedge compression fracture of second lumbar vertebra, initial encounter for closed fracture Current visit: No Status: Acute Not complaining about a lot of back pain. (6) Thrombocytopenia Current visit: No Status: Chronic Will get CBC in am. (7) Atrial fibrillation Current visit: Yes Status: Chronic (8) Anemia Current visit: Yes Status: Acute Will check CBC in am. DVT Prophylaxis: Coumadin Resuscitation Status: Full Code - Course Hospital Course: Giana Mcleod, DO: - Interventions to Obtain Goals PT Treatment Plan: Balance/Proprioception, Functional Activities, Gait Training , Patient/Family Education, Therapeutic Exercise OT Treatment Plan: ADL (Basic Care), IADL, UE Functional Training
[2018-01-04] MEDS: INSULIN ASPART 100unit/ml INJECTION SQ SCH ×3 (08:34→17:11)
[2018-01-04] MEDS: CycloSPORINE 0.05% EYE DROPS 4ml EACH EYE SCH ×2 (08:34→21:13)
[2018-01-04] MEDS: CALCIUM 600 + VIT D 400 TABLET PO SCH ×2 (08:34→17:12)
[2018-01-04] MEDS: AMOX/CLAV 875 MG/125 MG TABLET PO SCH ×2 (08:34→17:12)
[2018-01-04] MEDS: FLUoxetine 20 MG CAPSULE PO SCH (08:34)
[2018-01-04] MEDS: CYCLOBENZAPRINE 10 MG TABLET PO SCH ×3 (08:35→21:12)
[2018-01-04] MEDS: METFORMIN 500 MG TABLET PO SCH ×2 (08:35→17:12)
--- NOTE | 2018-01-04 09:25 | Pharmacy Consult ---
Pharmacy Consult-Warfarin - Laboratory Information 01/03/18 01/03/18 01/04/18 04:36 04:36 04:18 Hgb 9.9 L Hct 30.5 L INR 3.09 H 1.99 H - Consult Information COUMADIN CONSULT (Recurring): Dx: WEAKNESS Baseline INR = 3.09 72 yr old female 5'0" admitted from floor to IRU with generalized weakness. Pt had sepsis with UTI. She is now off the Rocephin and on Augmentin 875 mg for the UTI. She takes Warfarin for A-Fib. Her home dose regimen of warfarin is 3 mg six days a week and 4 mg once a week. The Augmentin can cause an elevated INR. DATE INR DOSE 01/02 3.45 HOLD dose 01/03 3.09 1 MG 01/04 1.99 Will give 3 MG Warfarin today (patient's home dose) Pharmacy will continue to monitor the INR and adjust the warfarin dose as needed. Thank you. Stefany Jade, TwilaD
[2018-01-04] MEDS ORDERED: WARFARIN 3 MG TABLET PO SCH (12:00)
[2018-01-04] MEDS: INSULIN ASPART 100unit/ml INJECTION SQ PRN (12:03)
[2018-01-04] MEDS: DIGOXIN 125 MCG TABLET PO SCH (12:07)
[2018-01-04] MEDS: TAMSULOSIN 0.4 MG CAPSULE PO SCH (21:12)
[2018-01-04] MEDS: ATORVASTATIN 10 MG TABLET PO SCH (21:12)
[2018-01-04] MEDS: INSULIN DETEMIR 100unit/ml INJECTION SQ SCH (21:14)
--- NOTE | 2018-01-05 07:32 | Pharmacy Consult ---
Pharmacy Consult-Warfarin - Laboratory Information 01/03/18 01/03/18 01/04/18 04:36 04:36 04:18 Hgb 9.9 L Hct 30.5 L INR 3.09 H 1.99 H 01/05/18 01/05/18 05:15 05:15 Hgb 10.6 L Hct 33.4 L INR 1.67 H - Consult Information COUMADIN CONSULT (Recurring): Dx: WEAKNESS Baseline INR = 3.09 72 yr old female 5'0" admitted from floor to IRU with generalized weakness. Pt had sepsis with UTI. She is now off the Rocephin and off the Augmentin 875 mg. She takes Warfarin for A-Fib. Her home dose regimen of warfarin is 3 mg six days a week and 4 mg once a week. DATE INR DOSE 01/02 3.45 HOLD dose 01/03 3.09 1 MG 01/04 1.99 3 MG 01/05 1.67 Will give 6 MG Warfarin today Thank you. Stefany Jade, PharmD
[2018-01-05] MEDS: CycloSPORINE 0.05% EYE DROPS 4ml EACH EYE SCH ×2 (08:25→20:03)
[2018-01-05] MEDS: METFORMIN 500 MG TABLET PO SCH ×2 (08:26→17:18)
[2018-01-05] MEDS: CALCIUM 600 + VIT D 400 TABLET PO SCH ×2 (08:26→17:18)
[2018-01-05] MEDS: FERROUS SULFATE 324 MG TABLET PO SCH (08:26)
[2018-01-05] MEDS: FLUoxetine 20 MG CAPSULE PO SCH (08:26)
[2018-01-05] MEDS: CYCLOBENZAPRINE 10 MG TABLET PO SCH ×3 (08:26→20:04)
[2018-01-05] MEDS: INSULIN ASPART 100unit/ml INJECTION SQ SCH ×3 (08:27→17:18)
[2018-01-05] MEDS: INSULIN ASPART 100unit/ml INJECTION SQ PRN (10:18)
[2018-01-05] MEDS ORDERED: WARFARIN 6 MG TABLET PO SCH (12:00)
[2018-01-05] MEDS: TRAMADOL 50 MG TABLET PO PRN (12:27)
[2018-01-05] MEDS: DIGOXIN 125 MCG TABLET PO SCH (12:28)
--- NOTE | 2018-01-05 13:23 | Progress Note ---
- Date 01/05/18 Subjective: Patient is seen sitting at the dining table . She reports she is doing well. She does c/o some weakness and what she describes as dizziness at times during therapy. She denies CP, SOA, n,v,f,c. She is unsteady w/ her walking and requires a walker for ambulation. Objective Vital signs: Temperature 98.1 F 01/04/18 19:37 Pulse Rate 68 01/05/18 12:28 Respiratory Rate 20 01/05/18 08:00 Blood Pressure 120/75 01/05/18 08:00 Pulse Oximetry 93 01/05/18 08:00 Height/Weight/BMI: Height 1.52 m Weight 87.9 kg Body Mass Index 37.8 - Constitutional Present: no acute distress, well nourished, well developed - Routine HEENT Exam Head: Present: normocephalic. Absent: atraumatic (resolving ecchymosis to R side of face) - Routine Respiratory Exam Present: CTA bilaterally. Absent: wheezes - Routine Cardiovascular Exam Present: RRR, no murmur - Routine Abdominal Exam Present: soft, non distended, non tender - Routine Extremities Exam Present: edema (tr), normal capillary refill - Routine Skin Exam Present: dry, warm - Routine Neurological Exam Present: alert, oriented X3 - Routine Lymphatic Exam Lymphatic: Absent: adenopathy - Routine Psychiatric Exam Present: normal affect, cooperative Results - Labs CBC & Chem 7: 01/05/18 05:15 01/03/18 04:36 Assessment and Plan Assessment and Plan: Assessment Recent sepsis secondary to UTI - resolved UTI - completed atbx on 01/04. Fall with head injury and L2 fx Laceration above right eye - healing Lumbar back pain with L2 compression fracture (chronic per Radiology interpretation) A-fib Type II DM, insulin requiring HLD Hypertension Osteoporosis Coronary artery disease status - post LAD stent about 2004 Depression/Anxiety H/o Nephrolithiasis Plan Currently on 7U NovoLog ac and 24U Levemir at hs. BS's improved. Will continue to adjust as needed. (At home, it appears she was taking NovoLog 15 units before meals and Levemir 38 units at at bedtime.) Completed course of atbx for UTI. Hgb improving -9.9-->10.3. (Previous records show ave of 11 in 08/01) Due to her unsteady gait, she requires wheeled walker - Rx given to CM. Vitals stable. Chart reviewed. - Physician Narrative Narrative: Date: 01/05/18 Time: 1318 Hospital Course Summary Disclaimer: The visit summary below is not to be considered part of the above Progress Note. Hospital Course: 01/03/18 Agree with IRU admission for further strengthening and pain control Follow BS's. At home, it appears she was taking NovoLog 15 units before meals and Levemir 38 units at at bedtime. During her medical stay, her Levemir was decreased to 24 units and she was on sliding scale. Will leave her on the Levemir and sliding scale for now and as we have more readings, can convert her SSI back to NovoLog before meals. Pharmacy to manage warfarin. Need to be cautious given the initiation of Augmentin. Completed 1 day Levaquin and 4 days Rocephin on medical floor, now on Augmentin. Plan to complete a 7 day course of antibiotics. Discussed with Dr. Colunga, ID. Sutures placed 12/28/17. These will be removed today. Follow hgb -9.9 today. (Previous records show ave of 11 in 08/01) Care to return to Dr. Alesia Sesay on discharge. 01/05/18 Currently on 7U NovoLog ac and 24U Levemir at . BS's improved. Will continue to adjust as needed. (At home, it appears she was taking NovoLog 15 units before meals and Levemir 38 units at at bedtime.) Completed course of atbx for UTI. Hgb improving -9.9-->10.3. (Previous records show ave of 11 in 08/01) Vitals stable. Chart reviewed.
[2018-01-05] MEDS: INSULIN DETEMIR 100unit/ml INJECTION SQ SCH (20:03)
[2018-01-05] MEDS: TAMSULOSIN 0.4 MG CAPSULE PO SCH (20:04)
[2018-01-05] MEDS: ATORVASTATIN 10 MG TABLET PO SCH (20:04)
--- NOTE | 2018-01-05 21:42 | IRU Plan of Care ---
[facility] Overall Plan of Care - Date Date: 01/05/18 - Patient Impairments (1) Generalized weakness Code(s): R53.1 - Weakness Status: Acute Classification: Present on IRF Admission, IRF Tx That Should Address Diagnosis (2) Sepsis Qualifiers: Sepsis type: sepsis due to unspecified organism Qualified Code(s): A41.9 - Sepsis, unspecified organism Code(s): A41.9 - Sepsis, unspecified organism Status: Resolved Classification: Diagnosis Requiring Medical Follow Up (3) UTI (urinary tract infection) Qualifiers: Urinary tract infection type: acute cystitis Hematuria presence: without hematuria Qualified Code(s): N30.00 - Acute cystitis without hematuria Code(s): N39.0 - Urinary tract infection, site not specified Status: Resolved Classification: Diagnosis Requiring Medical Follow Up (4) Facial laceration Qualifiers: Encounter type: initial encounter Qualified Code(s): S01.81XA - Laceration without foreign body of other part of head, initial encounter Code(s): S01.81XA - Laceration without foreign body of other part of head, initial encounter Status: Acute Classification: Present on IRF Admission, Diagnosis Requiring Medical Follow Up (5) Compression fracture of L2 Qualifiers: Encounter type: initial encounter Fracture type: closed Qualified Code(s) : S32.020A - Wedge compression fracture of second lumbar vertebra, initial encounter for closed fracture Code(s): S32.020A - Wedge compression fracture of second lumbar vertebra, initial encounter for closed fracture Status: Acute Classification: Present on IRF Admission, IRF Tx That Should Address Diagnosis, Diagnosis Requiring Medical Follow Up (6) Thrombocytopenia Code(s): D69.6 - Thrombocytopenia, unspecified Status: Chronic Classification: Present on IRF Admission, Diagnosis Requiring Medical Follow Up (7) Atrial fibrillation Qualifiers: Atrial fibrillation type: chronic Qualified Code(s): I48.2 - Chronic atrial fibrillation Code(s): I48.91 - Unspecified atrial fibrillation Status: Chronic Classification: Present on IRF Admission, Diagnosis Requiring Medical Follow Up (8) Anemia Qualifiers: Anemia type: unspecified type Qualified Code(s): D64.9 - Anemia, unspecified Code(s): D64.9 - Anemia, unspecified Status: Acute - Relevant Changes Relevant Changes: No Reviewed: I have reviewed the patient's information and concur with the finding and results of the pre-admission screen. Certification: I certify the patient for rehabilitation. - Medical Prognosis Medical Prognosis: Good Vital Signs: Last Vital Signs Temp 97.8 F 01/05/18 19:30 Pulse 61 01/05/18 19:30 Resp 16 01/05/18 19:30 BP 121/67 01/05/18 19:30 Pulse Ox 95 01/05/18 19:30 - Anticipated Interventions Anticipated Interventions: The patient requires inpatient IRF care for PT, OT, and/or ST for residuals remaining from UTI with sepsis and fall resulting in muscular weakness and strength deficits. An individualized overall plan of care has been developed after careful review of the patient's preadmission screening, post admission physician evaluation and assessments of all therapy disciplines and/or other pertinent clinicians involved in treating the patient. This indicates medical necessity and rehabilitation necessity have been established through a thorough review of all available medical information. - Current Functional Status Failed Alternative Therapy: Arrived from Acute Care Patient Requires: The patient requires oversight by rehabilitation physician to manage their rehabilitation treatment plan and multidisciplinary approach to care that can only be provided in an IRF and requires a multidisciplinary approach to care, provided by professional PTs, OTs, STs, rehabilitation nurses, and may require STs, dieticians, and RTS. This is not available in lesser levels of care. Physical Therapy Minutes: 90 Occupational Therapy Minutes: 90 Therapy: The patient is to receive therapy at least 5 days a week. - Anticipated LOS/Outcomes Anticipated Functional Outcome: It is anticipated the patient will be able to return to her independent living arrangement at modified independent to independent level, with stable blood pressures and blood sugars and platelet count. It is anticipated she will be able to perform her ADLs at modified independent level or better. Anticipated Length of Stay (days): 7 Anticipated DC Destination: Home, Self Care, Home Health Service Home Safety Plan: The patient will be provided with the development of a Home Safety Plan for return to a home or home-like environment and and to ensure safety post discharge. - Plan to Avoid Complications Barriers to Attaining Goals: Weakness Plan to Avoid Complications: The patient cannot receive this care in a lesser intensive setting such as Penitentiary or Outpatient Therapy due to the patient requiring the following : This patient was recently admitted with severe UTI with sepsis. She has thrombocytopenia and a history of diabetes mellitus on insulin. She requires close monitoring of blood pressure, monitoring of evidence for worsening infection, monitoring evidence of bleeding in view of the thrombocytopenia plus use of warfarin. She requires a multidisciplinary approach with PT and OT and medical supervision in view of these medical issues.
[2018-01-06] MEDS: TRAMADOL 50 MG TABLET PO PRN ×2 (00:02→23:53)
[2018-01-06] MEDS: HYDROCODONE/APAP 5mg/325mg TABLET PO PRN (03:20)
--- NOTE | 2018-01-06 08:13 | Pharmacy Consult ---
Pharmacy Consult-Warfarin - Laboratory Information 01/03/18 01/03/18 01/04/18 04:36 04:36 04:18 Hgb 9.9 L Hct 30.5 L INR 3.09 H 1.99 H 01/05/18 01/05/18 01/06/18 05:15 05:15 04:13 Hgb 10.6 L Hct 33.4 L INR 1.67 H 1.56 H - Consult Information Warfarin 6mg ordered for today. Thank you.
[2018-01-06] MEDS ORDERED: NS 1,000 ML IV ONE (08:43)
[2018-01-06] MEDS ORDERED: ACETAMINOPHEN 325 MG TABLET PO ONE (08:47)
[2018-01-06] MEDS: ACETAMINOPHEN 325 MG TABLET PO PRN (08:52)
--- NOTE | 2018-01-06 09:11 | XRay Report ---
Indication: wheezy, presyncope Procedure: XR chest 1V: Encounter: Initial Comparison: 12/28/2017 Technique: A single AP view of the chest was obtained. Findings: Lungs and airways: Normal lung volumes. No focal airspace consolidation. Normal pulmonary vasculature. Pleura: No pleural effusion or pneumothorax. Heart and mediastinum: Aortic atherosclerosis. The cardiomediastinal silhouette and great vessels are otherwise within normal limits. Osseous structures and soft tissues: No acute osseous abnormality is seen. Degenerative arthrosis of the shoulders. Impression: No acute cardiopulmonary process. .
[2018-01-06] MEDS: INSULIN ASPART 100unit/ml INJECTION SQ SCH ×3 (10:35→17:52)
[2018-01-06] MEDS: CycloSPORINE 0.05% EYE DROPS 4ml EACH EYE SCH ×2 (10:38→20:45)
[2018-01-06] MEDS: CYCLOBENZAPRINE 10 MG TABLET PO SCH (10:39)
[2018-01-06] MEDS: CALCIUM 600 + VIT D 400 TABLET PO SCH ×2 (10:39→17:48)
[2018-01-06] MEDS: FLUoxetine 20 MG CAPSULE PO SCH (10:39)
[2018-01-06] MEDS: METFORMIN 500 MG TABLET PO SCH ×2 (10:39→17:47)
--- NOTE | 2018-01-06 11:47 | IRU Progress Note ---
- Subjective/Serverity of Illness Date: 01/06/18 Cecille was interviewed and examined in her room on acute inpatient rehabilitation. She was initially admitted for weakness and falls and was ultimately found to have a urinary tract infection. She is now off antibiotics. She is asymptomatic. This morning, she was in the shower. She developed a feeling like she was going to pass out. Blood pressure subsequently measured at 75 systolic. She was assisted back to bed. She denies any chest pain but did have just a bit of shortness of breath. That was apparently fairly transient. She states that she recalls the entire event and there is no evidence that she was actually unconscious at any time. She did not fall. Her blood pressure gradually came back to 81. She was given IV fluids and her pressure came back up. At the present time she remains on IV fluids. She is awake and alert and oriented but feels very tired and washed out. She states this is similar to the episodes that she has at home although more severe. She has these about 5 times monthly. This is the first time apparently that hypotension has been documented. In reviewing her medications she is on the Flexeril which she has been on for some time since a previous ankle procedure. In addition she is on Flomax. She is uncertain how long she has been on it but believes it is been several months. I discussed with her whether she would be okay if we stopped both of those as they both can contribute to hypotension. She states that that would be fine. We will discontinue both of those. From a therapy standpoint the patient is doing well. She is standby assist for bathing as well as upper and lower body dressing. Transfers are according with standby assistance. She is able to ambulate with a 4 wheeled walker some 480 feet with standby assistance. Exam Vital Signs: Temperature 97.8 F 01/06/18 08:05 Pulse Rate 77 01/06/18 10:48 Respiratory Rate 16 01/06/18 10:48 Blood Pressure 118/69 01/06/18 10:48 Pulse Oximetry 96 01/06/18 10:48 Height/Weight/BMI: Height 1.52 m Weight 87.9 kg Body Mass Index 37.8 - Constitutional Present: well nourished, well developed, obese, cooperative Comments: I assessed the patient after her episode of hypotension. She appears to be weak. She is however quite awake and alert and able to communicate adequately. There is no evidence of new neurologic dysfunction. - Routine HEENT Exam Eye: Present: EOMI, PERRL ENT: Present: mucous membranes moist, dentition normal Comments: She has disconjugate gaze with medial deviation of the right eye. This is felt to be chronic. - Routine Neck Exam Present: supple - Routine Respiratory Exam Present: CTA bilaterally. Absent: wheezes - Routine Cardiovascular Exam Present: RRR (she has history of atrial fibrillation. However upon auscultation her rhythm appears to be fairly regular. Telemetry has been instituted.), S1, S2. Absent: murmur - Routine Abdominal Exam Present: soft, normoactive bowel sounds, non distended. Absent: tenderness - Routine Extremities Exam Present: no edema, normal capillary refill - Routine Skin Exam Present: dry, warm, ecchymosis (in the right periorbital and right facial area which is starting to clear.) - Routine Neurological Exam Present: alert, oriented X3, CN II-XII intact. Absent: motor deficit - Routine Psychiatric Exam Present: normal affect, cooperative, good insight, good judgment Results IRU - Labs Labs: Have reviewed recent chart to date including lab work and other providers notes. IRU A/P (1) Generalized weakness Current visit: Yes Status: Acute The patient has improved with regard to her ADLs and ambulatory ability. She is cooperative with therapy. (2) Facial laceration Qualifiers: Encounter type: initial encounter Qualified Code(s): S01.81XA - Laceration without foreign body of other part of head, initial encounter Current visit: No Status: Acute (3) Compression fracture of L2 Qualifiers: Encounter type: initial encounter Fracture type: closed Qualified Code(s) : S32.020A - Wedge compression fracture of second lumbar vertebra, initial encounter for closed fracture Current visit: No Status: Acute Patient seems to be tolerating therapy adequately. (4) Thrombocytopenia Current visit: No Status: Chronic Her platelet count is improved. (5) Atrial fibrillation Qualifiers: Atrial fibrillation type: chronic Qualified Code(s): I48.2 - Chronic atrial fibrillation Current visit: Yes Status: Chronic Her INR remained somewhat subtherapeutic. I discussed with pharmacy. We will continue to address them to adjust and not use Lovenox for the time being as she does have chronic atrial fibrillation rather than a valvular abnormality. (6) Anemia Qualifiers: Anemia type: unspecified type Qualified Code(s): D64.9 - Anemia, unspecified Current visit: Yes Status: Acute (7) Vasovagal episode Current visit: Yes Status: Acute She appears to have had an episode of vasovagal near syncope while in the shower. However we will also discontinue Flomax and Flexeril. She is improved at the present time but continues to have IV fluids running. We will hold therapy until she is more stable. DVT Prophylaxis: Coumadin Resuscitation Status: Full Code - Course Hospital Course: Giana Mcleod, DO: 01/06/18 11:51 Patient had a hypotensive episode this morning likely vasovagal. We will discontinue Flomax and Flexeril. No chest pain and no shortness of breath. Telemetry started. Hold therapy. - Interventions to Obtain Goals PT Treatment Plan: Balance/Proprioception, Functional Activities, Gait Training , Patient/Family Education, Therapeutic Exercise OT Treatment Plan: ADL (Basic Care), IADL, UE Functional Training Goals Progress/Modifications: The patient had an episode of acute vasovagal syncope this morning. She did not completely pass out but felt very lightheaded. She required IV fluids. We will discontinue the Flomax and the Flexeril. Because of this episode we will hold therapy today and make sure she is stable to participate prior to starting tomorrow. Blood work ordered and reviewed.
[2018-01-06] MEDS ORDERED: WARFARIN 6 MG TABLET PO SCH (12:00)
--- NOTE | 2018-01-06 12:09 | Progress Note ---
- Date 01/06/18 Subjective: Patient was seen this morning following a presyncopal episode . States she took a hot shower and didn't feel well. After drying her hair, she felt like her vision was closing in and felt dizzy and weak and shaky. States this is similar to episodes she has had in the past. She felt short of breath and wheezy with this episode which is different than in the past. By the time I saw her, she had been resting in bed and was feeling better. She denies cough, fever, chest pain, n/v. She does have urinary frequency but no dysuria. Recently completed atbx for UTI. Objective Vital signs: Temperature 97.8 F 01/06/18 08:05 Pulse Rate 66 01/06/18 12:02 Respiratory Rate 16 01/06/18 10:48 Blood Pressure 118/69 01/06/18 10:48 Pulse Oximetry 96 01/06/18 10:48 Height/Weight/BMI: Height 1.52 m Weight 87.9 kg Body Mass Index 37.8 - Constitutional Present: no acute distress, well nourished, well developed - Routine HEENT Exam Head: Present: normocephalic, atraumatic - Routine Respiratory Exam Absent: accessory muscle use, dyspnea, respiratory distress, wheezes Comments: on expiration, she has a higher pitched coarse sound diffuse throughout - ? upper airway - Routine Cardiovascular Exam Present: RRR (some irregularity), no murmur - Routine Abdominal Exam Present: soft, non distended, non tender - Routine Extremities Exam Present: no edema, normal capillary refill - Routine Skin Exam Present: dry, warm - Routine Neurological Exam Present: alert, oriented X3 - Routine Lymphatic Exam Lymphatic: Absent: adenopathy - Routine Psychiatric Exam Present: normal affect, cooperative Results - Labs CBC & Chem 7: 01/06/18 04:13 01/06/18 04:13 Assessment and Plan Assessment and Plan: Assessment Recent sepsis secondary to UTI - resolved UTI - completed atbx on 01/04. Fall with head injury and L2 fx Laceration above right eye - healing Lumbar back pain with L2 compression fracture (chronic per Radiology interpretation) A-fib Type II DM, insulin requiring HLD Hypertension Osteoporosis Coronary artery disease status - post LAD stent about 2004 Depression/Anxiety H/o Nephrolithiasis Presyncopal/hypotensive (likely vasovagal) episode 7/26/18 Plan Pt placed on telemetry. EKG shows sinus rhythm with no acute changes in comparison to previous EKG on 07/16/17. Troponin neg. Will trend troponins. CXR neg. UA uncollected at time of documentation. Hgb stable. BS's stable. Currently on 7U NovoLog ac and 24U Levemir at hs. Pt was bolused 1L NS. BP back up to 118/[address] Magallanes had DC'd flexeril and Flomax. INR subtherapeutic - no lovenox bridging needed for afib. DVT Prophylaxis: Coumadin Resuscitation Status: Full Code - Physician Narrative Physician: Enrique Rodriges MD Narrative: Date: 01/06/18 Time: 1934 Have independently interviewed & examined pt. Chart reviewed. Case discussed with my PA. Above care plan developed with my supervision; agree with above. Rough day. Had episode of feeling dizzy, weak, faint this morning after her shower. Not able to do therapy this morning, but had activities in the afternoon. Overall, feeling better but notes some mild similar symptoms this evening around dinner. Pain controlled. Not having ab pain or discomfort. Lungs: decreased. CV: irregular AB: soft nt BS decreased MSE: awake alert Plan: Continue with supportive care. Encourage therapy. BP improved post IVF fluids-trop negative. Encourage oral intake. Monitor BP. Hospital Course Summary Disclaimer: The visit summary below is not to be considered part of the above Progress Note. Hospital Course: 01/03/18 Agree with IRU admission for further strengthening and pain control. Follow BS's. At home, it appears she was taking NovoLog 15 units before meals and Levemir 38 units at at bedtime. During her medical stay, her Levemir was decreased to 24 units and she was on sliding scale. Will leave her on the Levemir and sliding scale for now and as we have more readings, can convert her SSI back to NovoLog before meals. Pharmacy to manage warfarin. Need to be cautious given the initiation of Augmentin. Completed 1 day Levaquin & 4 days Rocephin on medical floor, now on Augmentin. Plan to complete a 7 day course of antibiotics. Discussed with Dr. Colunga, ID. Sutures placed 12/28/17. These will be removed today. Follow hgb -9.9 today. (Previous records show ave of 11 in 08/01) Care to return to Dr. Alesia Sesay on discharge. 01/05/18 Currently on 7U NovoLog ac and 24U Levemir at hs. BS's improved. Will continue to adjust as needed. (At home, it appears she was taking NovoLog 15 units before meals and Levemir 38 units at at bedtime.) Completed course of atbx for UTI. Hgb improving -9.9-->10.3. (Previous records show ave of 11 in 08/01) Vitals stable. Chart reviewed. 01/06/18 Pt placed on telemetry. EKG shows sinus rhythm with no acute changes in comparison to previous EKG on 07/16/17. Troponin neg. Will trend troponins. CXR neg. UA uncollected at time of documentation. Hgb stable. BS's stable. Currently on 7U NovoLog ac and 24U Levemir at hs. Pt was bolused 1L NS. BP back up to 118/[address] Magallanes had DC'd flexeril and Flomax. INR subtherapeutic - no Lovenox bridging needed for afib. Home insulin - NovoLog 15 units before meals and Levemir 38 units at bedtime
[2018-01-06] MEDS: DIGOXIN 125 MCG TABLET PO SCH (12:34)
[2018-01-06] MEDS: INSULIN ASPART 100unit/ml INJECTION SQ PRN (14:57)
[2018-01-06] MEDS: ATORVASTATIN 10 MG TABLET PO SCH (20:45)
[2018-01-06] MEDS: INSULIN DETEMIR 100unit/ml INJECTION SQ SCH (20:45)
[2018-01-07] MEDS: HYDROCODONE/APAP 5mg/325mg TABLET PO PRN (03:43)
--- NOTE | 2018-01-07 08:36 | Pharmacy Consult ---
Pharmacy Consult-Warfarin - Laboratory Information 01/03/18 01/03/18 01/04/18 04:36 04:36 04:18 Hgb 9.9 L Hct 30.5 L INR 3.09 H 1.99 H AST ALT Albumin 01/05/18 01/05/18 01/06/18 05:15 05:15 04:13 Hgb 10.6 L Hct 33.4 L INR 1.67 H 1.56 H AST ALT Albumin 01/06/18 01/06/18 01/07/18 04:13 04:13 04:18 Hgb 10.4 L Hct 33.2 L INR 1.91 H AST 47 H ALT 29 Albumin 3.5 - Consult Information INR almost in target range. Warfarin 5mg ordered for today. Thank you.
[2018-01-07] MEDS: INSULIN ASPART 100unit/ml INJECTION SQ SCH ×3 (08:54→18:14)
[2018-01-07] MEDS: FERROUS SULFATE 324 MG TABLET PO SCH (08:55)
[2018-01-07] MEDS: CycloSPORINE 0.05% EYE DROPS 4ml EACH EYE SCH ×2 (08:55→21:40)
[2018-01-07] MEDS: CALCIUM 600 + VIT D 400 TABLET PO SCH ×2 (08:55→18:15)
[2018-01-07] MEDS: FLUoxetine 20 MG CAPSULE PO SCH (08:55)
[2018-01-07] MEDS: METFORMIN 500 MG TABLET PO SCH ×2 (08:55→18:15)
[2018-01-07] MEDS: SALINE FLUSH 10ml SYRINGE IV PRN (08:56)
[2018-01-07] MEDS: TRAMADOL 50 MG TABLET PO PRN ×2 (09:56→19:09)
--- NOTE | 2018-01-07 11:03 | IRU Progress Note ---
- Subjective/Serverity of Illness Date: 01/07/18 Cecille had a significant hypotensive/vasovagal spell yesterday in the shower. She recovered from that. She was given additional fluids and felt better. Then this morning she had another spell not associated with a shower. Blood pressure again dropped. This was when she was either sitting or standing. She does have occasional chest heaviness she states. She does follow with Dr. Hyman in [place]. We did request records today and have the following new information: 1. Echocardiogram dated 08/31/2017 demonstrates ejection fraction 45-50% with grade 1 diastolic dysfunction and mild aortic regurgitation. No pulmonary hypertension is seen at that time. 2. Has history of known atrial fibrillation and is on long-term anticoagulation. 3. Office visit with Dr. Hyman 08/31/2017: Noted allergies to JAISON inhibitor's , patient has known coronary artery disease and recommended continuing aspirin and as needed nitroglycerin, diagnosed with cardiomyopathy, unspecified type, on losartan and metoprolol 50 mg twice daily was to see him in 6 months with adenosine stress test. Because of her episodes of hypotension, therapy has been difficult. We are continuing to work with her on a cautious basis. We will reduce the metoprolol to 25 mg twice daily. Yesterday we stop the Flomax and the Flexeril. In addition we will add support hosiery. It is unclear if her hypotension is due to her cardiomyopathy and being a bit under hydrated versus "idiopathic" or primary orthostatic hypotension. Exam Vital Signs: Temperature 98.3 F 01/07/18 07:30 Pulse Rate 78 01/07/18 08:55 Respiratory Rate 18 01/07/18 07:30 Blood Pressure 93/60 01/07/18 08:55 Pulse Oximetry 97 01/06/18 23:47 Height/Weight/BMI: Height 1.52 m Weight 87.9 kg Body Mass Index 37.8 - Constitutional Present: mild distress (lightheaded at times), well nourished, well developed, obese, cooperative - Routine HEENT Exam Head: Absent: atraumatic (ecchymoses gradually clearing from the right side of the face.) Eye: Absent: EOMI ENT: Present: mucous membranes moist, oropharynx clear - Routine Respiratory Exam Present: decreased breath sounds, CTA bilaterally. Absent: wheezes - Routine Cardiovascular Exam Present: RRR (patient is known to have atrial fibrillation but sounds regular at the present time.), S1, S2. Absent: murmur - Routine Abdominal Exam Present: soft, normoactive bowel sounds, non distended. Absent: tenderness - Routine Extremities Exam Present: no edema, normal capillary refill - Routine Skin Exam Present: dry, warm - Routine Neurological Exam Present: alert, oriented X3, CN II-XII intact - Routine Psychiatric Exam Present: normal affect, cooperative, good insight, good judgment IRU A/P (1) Generalized weakness Current visit: Yes Status: Acute Cecille continues to have generalized weakness from her recent illness. However this is exacerbated by her episodes of orthostatic hypotension. (2) Facial laceration Qualifiers: Encounter type: initial encounter Qualified Code(s): S01.81XA - Laceration without foreign body of other part of head, initial encounter Current visit: No Status: Acute (3) Compression fracture of L2 Qualifiers: Encounter type: initial encounter Fracture type: closed Qualified Code(s) : S32.020A - Wedge compression fracture of second lumbar vertebra, initial encounter for closed fracture Current visit: No Status: Acute (4) Thrombocytopenia Current visit: No Status: Chronic Platelet count improved at 85,000. (5) Atrial fibrillation Qualifiers: Atrial fibrillation type: chronic Qualified Code(s): I48.2 - Chronic atrial fibrillation Current visit: Yes Status: Chronic Clinically sounds as though she is in a regular mechanism. INR is approaching therapeutic. (6) Anemia Qualifiers: Anemia type: unspecified type Qualified Code(s): D64.9 - Anemia, unspecified Current visit: Yes Status: Acute (7) Vasovagal episode Current visit: Yes Status: Acute Patient has now had several episodes of orthostatic hypotension. I imagine this is due to a combination of her diabetes with autonomic neuropathy, reduced ejection fraction and medications. In this regard we will endeavor to help by adding support madeline, reducing metoprolol 25 mg twice daily and seeing how that goes. We will continue therapy on a cautious basis. (8) Chronic combined systolic (congestive) and diastolic (congestive) heart failure Current visit: Yes Status: Chronic Based on echocardiogram from August 2017 she has a ejection fraction of 45-50% as well as diastolic dysfunction. 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 However I feel as though her diabetes is likely one of the etiologies of her autonomic dysfunction with orthostatic hypotension DVT Prophylaxis: Coumadin Resuscitation Status: Full Code - Course Hospital Course: Giana Soto Harsha, DO: 01/06/18 11:51 Patient had a hypotensive episode this morning likely vasovagal. We will discontinue Flomax and Flexeril. No chest pain and no shortness of breath. Telemetry started. Hold therapy. 01/07/18 11:10 Continues to struggle with orthostatic hypotension. New data indicates combined systolic and diastolic heart failure chronically from echocardiogram August 2017 We will reduce metoprolol to 25 mg twice daily. Add support hosiery. Continue therapy - Interventions to Obtain Goals PT Treatment Plan: Balance/Proprioception, Functional Activities, Gait Training , Patient/Family Education, Therapeutic Exercise OT Treatment Plan: ADL (Basic Care), IADL, UE Functional Training Goals Progress/Modifications: Patient continues to struggle with orthostatic hypotension. New data reviewed from outside indicates combined diastolic and systolic heart failure with ejection fraction 45-50% based on echocardiogram August 2017. I imagine she has a combination of reasons for her hypotension including diabetic autonomic neuropathy/dysfunction as well as the reduced ejection fraction. It will be important to maintain adequate hydration without excessive hydration. We will add on support hosiery. We will continue therapy as tolerated. Patient is complex medically. Continue to monitor carefully.
[2018-01-07] MEDS ORDERED: WARFARIN 5 MG TABLET PO SCH (12:00)
[2018-01-07] MEDS: DIGOXIN 125 MCG TABLET PO SCH (12:16)
--- NOTE | 2018-01-07 12:58 | IRU Team Meeting ---
IRU Team Meeting - Nursing Bladder Assistive Devices Utilized:: Medication, Absorbent Pad Bladder Management Level of Assist: Modified Independent Bladder Frequency of Accidents: No accidents Bowel Management Level of Assist: Independent Bowel Frequency of Accidents: No accidents Vital Signs: Vital Signs - 24 hr 01/06/18 16:00 01/06/18 23:47 01/07/18 01:59 Temperature 97.9 F 98.1 F Pulse Rate 81 74 66 Respiratory Rate 18 18 Blood Pressure 130/85 115/72 Pulse Oximetry 97 97 01/07/18 03:43 01/07/18 07:25 01/07/18 07:28 Temperature Pulse Rate Respiratory Rate 20 Blood Pressure 137/78 146/71 H Pulse Oximetry 01/07/18 07:30 01/07/18 07:32 01/07/18 07:45 Temperature 98.3 F Pulse Rate 80 Respiratory Rate 18 Blood Pressure 90/59 126/74 77/51 Pulse Oximetry 01/07/18 08:40 01/07/18 08:55 01/07/18 12:16 Temperature Pulse Rate 74 78 64 Respiratory Rate Blood Pressure 109/62 93/60 Pulse Oximetry Current Medications: Acetaminophen (Tylenol) 325 - 650 mg PO Q5H PRN PRN Reason: Discomfort Last Admin: 01/06/18 08:52 Dose: 650 mg Hydrocodone Bitart/Acetaminophen ([place] 5/325) 1 - 2 tab PO Q4H PRN PRN Reason: Pain Last Admin: 01/07/18 03:43 Dose: 2 tab Atorvastatin Calcium (Lipitor) 10 mg PO HS [facility] Last Admin: 01/06/18 20:45 Dose: 10 mg Calcium/Vitamin D (Caltrate + D) 1 tab PO BIDBS [facility] Last Admin: 01/07/18 08:55 Dose: 1 tab Cholecalciferol (Vit. D-3) 1,000 unit PO DAILY [facility] Last Admin: 01/07/18 08:55 Dose: 1,000 unit Cyclosporine (Restasis) 1 drop EACH EYE BID [facility] Last Admin: 01/07/18 08:55 Dose: 1 drop Dextrose (D50%W) 0 ml IVP PRN PRN PRN Reason: Hypoglycemia Digoxin (Lanoxin) 125 mcg PO NOON [facility] Last Admin: 01/07/18 12:16 Dose: 125 mcg Ferrous Sulfate (Feosol) 324 mg PO MoWeFr@0800 [facility] Last Admin: 01/07/18 08:55 Dose: 324 mg Fluoxetine HCl (Prozac) 20 mg PO DAILY [facility] Last Admin: 01/07/18 08:55 Dose: 20 mg Insulin Aspart (Novolog) 1 - 5 unit SQ SS PRN; Protocol PRN Reason: Hyperglycemia Last Admin: 01/06/18 14:57 Dose: 1 unit Insulin Aspart (Novolog) 7 unit SQ [id number] [facility] Last Admin: 01/07/18 12:14 Dose: 7 unit Insulin Detemir (Levemir) 24 unit SQ HS [facility] Last Admin: 01/06/18 20:45 Dose: 24 unit Metformin HCl (Glucophage) 500 mg PO BIDWM [facility] Last Admin: 01/07/18 08:55 Dose: 500 mg Metoprolol Tartrate (Lopressor) 25 mg PO BIDWM [facility] Sodium Chloride (Iv Flush) 10 - 80 ml IV PRN PRN PRN Reason: Flushing Last Admin: 01/07/18 08:56 Dose: 10 ml Tramadol HCl (Ultram) 50 mg PO Q6H PRN PRN Reason: Pain Last Admin: 01/07/18 09:56 Dose: 50 mg Warfarin Sodium (Coumadin Protocol) 0 MC NOTE BRAYAN Current Medical Issues: Orthostatic hypotension likely related to underlying diabetic autonomic neuropathy, diabetes mellitus type 2 on insulin, recent UTI, generalized debilitation. Comments: I certify that I personally led the interdisciplinary team meeting and agree with comments, barriers and goals indicated. Team meeting was held in the patient's room with the patient and the following family members present: patient's daughter Sherlyn by speakerniranjan Cecille continues to struggle with orthostatic hypotension. This is been present for the past several months but is certainly worse the past couple of days. This is likely related to a multitude of issues including her reduced ejection fraction but also and more predominantly related to autonomic dysfunction from her diabetes. Her blood sugars are doing well. Interventions have included placement of support hosiery, reducing dose of metoprolol and eliminating Flomax and Flexeril. Otherwise she is eating and drinking adequately and cooperative with therapy. - Physical Therapy Bed, Chair, Wheelchair Transfer Assist: Modified Independent Ambulation Ability: Stand By Assist/Supervision Ambulation Distance: 200 Stair Climbing Ability: Total Assistance Number of Steps Climbed: 8 Car Transfer Ability: Contact Guard Assistance Comments: Due to low blood pressure, progress has been limited the last day or so. When her blood pressures are good she is able to ambulate with standby assist to supervision level with a 4 wheeled walker 200 feet. - Occupational Therapy Eating Ability: Stand By Assist/Supervision Grooming Ability: Stand By Assist/Supervision Bathing Ability: Minimal Assistance Upper Body Dressing Ability: Moderate Assistance Lower Body Dressing Ability: Minimal Assistance Tub Transfer Assist: Minimal Assistance Toileting Assist: Contact Guard Assistance Toilet Transfer Assist: Contact Guard Assistance Comments: Overall she has done well with ADLs and to the last couple of days at which time her low blood pressures have hindered her performance. Recommend continuing to work with patient as blood pressures remain improved. - Goals Physical Therapy Goals: 01/07/18: 1.) Modified independence with ambulation with use of four wheeled walker. 2.) Demonstrate independence with home exercise program. 3.) Stand for 5 minutes. Occupational Therapy Goals: OT goals 01/07/18: 1.) Upper body dressing with modified independence. 2.) Lower body dressing with modified independence. 3. ) Toileting with modified independence. - Barriers to Discharge Barriers to Attaining Goals: Weakness, Medical Limitation (orthostatic hypotension. To address this, we are reducing dose of metoprolol, eliminating Flomax and Flexeril and adding support hosiery.) - Care Plan Anticipated Length of Stay (days): 7 Anticipated DC Destination: Home, Self Care, Home Health Service I have led this team conference and agree with the plan. Interventions/Goals: Patient is cooperative with therapy and would like to get home as soon as reasonably possible. At present she is not safe to return home due to her orthostatic hypotension and functional deficits. With continued adjustment in medications etc. it is hoped that her pressures will be improved and that she will make additional functional gains.
--- NOTE | 2018-01-07 13:55 | Progress Note ---
- Date 01/07/18 Subjective: Cecille is seen today in follow up. She is up in the chair and states that she is feeling better than earlier today. She was noted to have orthostatic hypotension and Bp decreased to 77/51. Patient was symptomatic at that time complaining of dizziness. She was given IV fluids per Dr Magallanes. At time of examination patient denies having any dizziness, lightheadedness or chest pain. Objective Vital signs: Temperature 98.3 F 01/07/18 07:30 Pulse Rate 64 01/07/18 12:16 Respiratory Rate 18 01/07/18 07:30 Blood Pressure 93/60 01/07/18 08:55 Pulse Oximetry 97 01/06/18 23:47 Height/Weight/BMI: Height 1.52 m Weight 87.9 kg Body Mass Index 37.8 - Constitutional Present: well nourished, well developed - Routine HEENT Exam Eye: Present: EOMI ENT: Present: mucous membranes moist, dentition normal - Routine Respiratory Exam Present: CTA bilaterally. Absent: wheezes - Routine Cardiovascular Exam Present: RRR, S1, S2. Absent: murmur - Routine Abdominal Exam Present: soft, normoactive bowel sounds, non distended. Absent: tenderness - Routine Extremities Exam Present: edema (BLE), normal capillary refill - Routine Skin Exam Present: intact, dry, warm - Routine Neurological Exam Present: alert, oriented X3, CN II-XII intact - Routine Lymphatic Exam Lymphatic: Absent: adenopathy - Routine Psychiatric Exam Present: normal affect, cooperative Results - Labs CBC & Chem 7: 01/06/18 04:13 01/06/18 04:13 Assessment and Plan Assessment and Plan: Assessment Recent sepsis secondary to UTI - resolved UTI - completed atbx on 01/04. Fall with head injury and L2 fx Laceration above right eye - healing Lumbar back pain with L2 compression fracture (chronic per Radiology interpretation) A-fib Type II DM, insulin requiring HLD Hypertension Osteoporosis Coronary artery disease status - post LAD stent about 2004 Depression/Anxiety H/o Nephrolithiasis Presyncopal/hypotensive (likely vasovagal) episode 01/06/18 Plan UA obtained yesterday was normal Metoprolol dose this morning held given hypotension Dose decreased to 25mg BID. May need to consider lowering it more Continue to follow blood sugars Encourage with with PT/OT INR nearly therapeutic at 1.9- no need to bridge - Physician Narrative Narrative: Date: 01/07/18 Time: 1351 Hospital Course Summary Disclaimer: The visit summary below is not to be considered part of the above Progress Note. Hospital Course: 01/03/18 Agree with IRU admission for further strengthening and pain control. Follow BS's. At home, it appears she was taking NovoLog 15 units before meals and Levemir 38 units at at bedtime. During her medical stay, her Levemir was decreased to 24 units and she was on sliding scale. Will leave her on the Levemir and sliding scale for now and as we have more readings, can convert her SSI back to NovoLog before meals. Pharmacy to manage warfarin. Need to be cautious given the initiation of Augmentin. Completed 1 day Levaquin & 4 days Rocephin on medical floor, now on Augmentin. Plan to complete a 7 day course of antibiotics. Discussed with Dr. Colunga, ID. Sutures placed 12/28/17. These will be removed today. Follow hgb -9.9 today. (Previous records show ave of 11 in 08/01) Care to return to Dr. Alesia Sesay on discharge. 01/05/18 Currently on 7U NovoLog ac and 24U Levemir at hs. BS's improved. Will continue to adjust as needed. (At home, it appears she was taking NovoLog 15 units before meals and Levemir 38 units at at bedtime.) Completed course of atbx for UTI. Hgb improving -9.9-->10.3. (Previous records show ave of 11 in 08/01) Vitals stable. Chart reviewed. 01/06/18 Pt placed on telemetry. EKG shows sinus rhythm with no acute changes in comparison to previous EKG on 07/16/17. Troponin neg. Will trend troponins. CXR neg. UA uncollected at time of documentation. Hgb stable. BS's stable. Currently on 7U NovoLog ac and 24U Levemir at hs. Pt was bolused 1L NS. BP back up to 118/[address]F's[address] Magallanes had DC'd flexeril and Flomax. INR subtherapeutic - no Lovenox bridging needed for afib. Home insulin - NovoLog 15 units before meals and Levemir 38 units at bedtime 7.27.18 UA obtained yesterday was normal Metoprolol dose this morning held given hypotension Dose decreased to 25mg BID. May need to consider lowering it more Continue to follow blood sugars Encourage with with PT/OT INR nearly therapeutic at 1.9- no need to bridge
[2018-01-07] MEDS: INSULIN DETEMIR 100unit/ml INJECTION SQ SCH (21:39)
[2018-01-07] MEDS: ATORVASTATIN 10 MG TABLET PO SCH (21:40)
[2018-01-07] MEDS: ACETAMINOPHEN 325 MG TABLET PO PRN (21:43)
[2018-01-08] MEDS: INSULIN ASPART 100unit/ml INJECTION SQ SCH ×3 (09:06→18:00)
[2018-01-08] MEDS: METFORMIN 500 MG TABLET PO SCH ×2 (09:07→17:59)
[2018-01-08] MEDS: CALCIUM 600 + VIT D 400 TABLET PO SCH ×2 (09:07→17:59)
[2018-01-08] MEDS: SALINE FLUSH 10ml SYRINGE IV PRN (09:08)
[2018-01-08] MEDS: CycloSPORINE 0.05% EYE DROPS 4ml EACH EYE SCH ×2 (09:08→21:44)
[2018-01-08] MEDS: FLUoxetine 20 MG CAPSULE PO SCH (09:08)
--- NOTE | 2018-01-08 09:45 | Pharmacy Consult ---
Pharmacy Consult-Warfarin - Laboratory Information 01/03/18 01/03/18 01/04/18 04:36 04:36 04:18 Hgb 9.9 L Hct 30.5 L INR 3.09 H 1.99 H AST ALT Albumin 01/05/18 01/05/18 01/06/18 05:15 05:15 04:13 Hgb 10.6 L Hct 33.4 L INR 1.67 H 1.56 H AST ALT Albumin 01/06/18 01/06/18 01/07/18 04:13 04:13 04:18 Hgb 10.4 L Hct 33.2 L INR 1.91 H AST 47 H ALT 29 Albumin 3.5 01/08/18 04:27 Hgb Hct INR 2.34 H AST ALT Albumin - Consult Information Warfarin consult: day 10 72 yr old female 5'0" admitted from floor to IRU with generalized weakness. Pt had sepsis with UTI. History of A.fib and chronic anticoagulation with warfarin. goal INR range= 2.0 to 3.0 Her home dose regimen of warfarin is 3 mg six days a week and 4 mg once a week. DATE INR DOSE 01/02 3.45 HOLD dose 01/03 3.09 1 mg 01/04 1.99 3 mg 01/05 1.67 6 mg 01/06 1.56 6 mg 01/07 1.91 5 mg 01/08 2.34 plan: 3 mg INR is in therapeutic range. Will give Warfarin 3 mg po today. Pharmacy will monitor and adjust as needed. Thank you. Sherlyn De Jesus [facility]
[2018-01-08] MEDS: DIGOXIN 125 MCG TABLET PO SCH (11:53)
[2018-01-08] MEDS: INSULIN ASPART 100unit/ml INJECTION SQ PRN ×2 (11:55→21:44)
[2018-01-08] MEDS ORDERED: WARFARIN 3 MG TABLET PO ONE (12:00)
[2018-01-08] MEDS: TRAMADOL 50 MG TABLET PO PRN (19:40)
[2018-01-08] MEDS ORDERED: ALPRAZolam 0.5 MG TABLET PO PRN (19:46)
[2018-01-08] MEDS: INSULIN DETEMIR 100unit/ml INJECTION SQ SCH (21:43)
[2018-01-08] MEDS: ATORVASTATIN 10 MG TABLET PO SCH (21:44)
[2018-01-09] MEDS: TRAMADOL 50 MG TABLET PO PRN ×4 (02:05→21:18)
[2018-01-09] MEDS: CALCIUM 600 + VIT D 400 TABLET PO SCH ×2 (09:08→17:43)
[2018-01-09] MEDS: METFORMIN 500 MG TABLET PO SCH ×2 (09:08→17:43)
[2018-01-09] MEDS: CycloSPORINE 0.05% EYE DROPS 4ml EACH EYE SCH ×2 (09:08→21:16)
[2018-01-09] MEDS: FLUoxetine 20 MG CAPSULE PO SCH (09:09)
[2018-01-09] MEDS: INSULIN ASPART 100unit/ml INJECTION SQ SCH ×3 (09:09→17:42)
--- NOTE | 2018-01-09 09:47 | Pharmacy Consult ---
Pharmacy Consult-Warfarin - Laboratory Information 01/03/18 01/03/18 01/04/18 04:36 04:36 04:18 Hgb 9.9 L Hct 30.5 L INR 3.09 H 1.99 H AST ALT Albumin 01/05/18 01/05/18 01/06/18 05:15 05:15 04:13 Hgb 10.6 L Hct 33.4 L INR 1.67 H 1.56 H AST ALT Albumin 01/06/18 01/06/18 01/07/18 04:13 04:13 04:18 Hgb 10.4 L Hct 33.2 L INR 1.91 H AST 47 H ALT 29 Albumin 3.5 01/08/18 01/09/18 04:27 04:28 Hgb Hct INR 2.34 H 2.56 H AST ALT Albumin - Consult Information Warfarin consult: day 11 72 yr old female 5'0" admitted from floor to IRU with generalized weakness. Pt had sepsis with UTI. History of A.fib and chronic anticoagulation with warfarin. goal INR range= 2.0 to 3.0 Her home dose regimen of warfarin is 3 mg six days a week and 4 mg once a week. DATE INR DOSE 01/02 3.45 HOLD dose 01/03 3.09 1 mg 01/04 1.99 3 mg 01/05 1.67 6 mg 01/06 1.56 6 mg 01/07 1.91 5 mg 01/08 2.34 3 mg 01/09 2.56 plan: 3 mg INR is in therapeutic range. Will give Warfarin 3 mg po today. Pharmacy will monitor and adjust as needed. Thank you. Sherlyn De Jesus [facility]
[2018-01-09] MEDS: INSULIN ASPART 100unit/ml INJECTION SQ PRN (11:09)
[2018-01-09] MEDS ORDERED: WARFARIN 3 MG TABLET PO SCH (12:00)
[2018-01-09] MEDS: DIGOXIN 125 MCG TABLET PO SCH (12:40)
--- NOTE | 2018-01-09 16:07 | Progress Note ---
- Date 01/09/18 Subjective: Cecille is seen today while sitting in her room. She complains of a headache similar to prior headaches she has had before. She denies any changes in vision , nausea, vomiting, chest pain, shortness of breath or abdominal pain. Her appetite is stable and urinary output is adequate. Review of her vital signs indicates that she continues to be very orthostatic with standing but denies any lightheadedness or dizziness with standing since decrease in her metoprolol to 25mg BID on 01/07/18. Blood sugars have been elevated, requiring sliding scale insulin. Meal time insulin increased from 7 units to 8 units today. Objective Vital signs: Temperature 97.9 F 01/09/18 16:00 Pulse Rate 66 01/09/18 16:00 Respiratory Rate 18 01/09/18 16:00 Blood Pressure 121/74 01/09/18 16:00 Pulse Oximetry 97 01/09/18 16:00 Height/Weight/BMI: Height 5 ft Weight 193 lb 12.581 oz Body Mass Index 37.8 - Constitutional Present: no acute distress, well nourished, well developed, morbidly obese, cooperative - Routine HEENT Exam Head: Present: normocephalic, atraumatic Eye: Present: PERRL. Absent: conjunctival icterus ENT: Present: mucous membranes moist, oropharynx clear - Routine Respiratory Exam Present: CTA bilaterally. Absent: respiratory distress, wheezes - Routine Cardiovascular Exam Present: RRR - Routine Abdominal Exam Present: soft, normoactive bowel sounds, non tender - Routine Extremities Exam Present: edema, pulses intact, normal capillary refill - Routine Musculoskeletal Exam Musculoskeletal: Present: moving extremities well - Routine Skin Exam Present: dry, warm Comments: afebrile. - Routine Neurological Exam Present: alert, moving all extremities, hearing grossly intact, normal speech - Routine Psychiatric Exam Present: cooperative Results - Labs CBC & Chem 7: 01/06/18 04:13 01/06/18 04:13 Assessment and Plan (1) UTI (urinary tract infection) Current visit: No Status: Resolved Assessment and Plan: Assessment Recent sepsis secondary to UTI - resolved UTI - completed atbx on 01/04. Fall with head injury and L2 fx Laceration above right eye - healing Lumbar back pain with L2 compression fracture (chronic per Radiology interpretation) A-fib Type II DM, insulin requiring HLD Hypertension Osteoporosis Coronary artery disease status - post LAD stent about 2004 Depression/Anxiety H/o Nephrolithiasis Presyncopal/hypotensive (likely vasovagal) episode 01/06/18 Plan Doing well and making gains. Continue therapies and treatments per Dr. Magallanes. She continues to be orthostatic but denies any symptoms. Continue to monitor closely. High fall risk. Metoprolol decreased to 25mg BID on 01/07/18. Blood pressure more elevated but orthostatic symptoms resolved. Continue to monitor. Blood sugars elevated requiring SSI. Novolog increased to 8 units (from 7 units ) with meals. Continue to monitor closely. INR therapeutic. Pharmacy managing. DVT Prophylaxis: Coumadin Resuscitation Status: Full Code - Time spent with patient Time with patient PN: 30 minutes - Physician Narrative Physician: Enrique Rodriges MD Narrative: Date: 01/09/18 Time: 1604 Hospital Course Summary Disclaimer: The visit summary below is not to be considered part of the above Progress Note. Hospital Course: 01/03/18 Agree with IRU admission for further strengthening and pain control. Follow BS's. At home, it appears she was taking NovoLog 15 units before meals and Levemir 38 units at at bedtime. During her medical stay, her Levemir was decreased to 24 units and she was on sliding scale. Will leave her on the Levemir and sliding scale for now and as we have more readings, can convert her SSI back to NovoLog before meals. Pharmacy to manage warfarin. Need to be cautious given the initiation of Augmentin. Completed 1 day Levaquin & 4 days Rocephin on medical floor, now on Augmentin. Plan to complete a 7 day course of antibiotics. Discussed with Dr. Colunga, ID. Sutures placed 12/28/17. These will be removed today. Follow hgb -9.9 today. (Previous records show ave of 11 in 08/01) Care to return to Dr. Alesia Sesay on discharge. 01/05/18 Currently on 7U NovoLog ac and 24U Levemir at hs. BS's improved. Will continue to adjust as needed. (At home, it appears she was taking NovoLog 15 units before meals and Levemir 38 units at at bedtime.) Completed course of atbx for UTI. Hgb improving -9.9-->10.3. (Previous records show ave of 11 in 08/01) Vitals stable. Chart reviewed. 01/06/18 Pt placed on telemetry. EKG shows sinus rhythm with no acute changes in comparison to previous EKG on 07/16/17. Troponin neg. Will trend troponins. CXR neg. UA uncollected at time of documentation. Hgb stable. BS's stable. Currently on 7U NovoLog ac and 24U Levemir at hs. Pt was bolused 1L NS. BP back up to 118/[address]F's[address] Magallanes had DC'd flexeril and Flomax. INR subtherapeutic - no Lovenox bridging needed for afib. Home insulin - NovoLog 15 units before meals and Levemir 38 units at bedtime 01.07.18 UA obtained yesterday was normal Metoprolol dose this morning held given hypotension Dose decreased to 25mg BID. May need to consider lowering it more Continue to follow blood sugars Encourage with with PT/OT INR nearly therapeutic at 1.9- no need to bridge 01/09/18 Doing well and making gains. Continue therapies and treatments per Dr. Magallanes. She continues to be orthostatic but denies any symptoms. Continue to monitor closely. High fall risk. Metoprolol decreased to 25mg BID on 01/07/18. Blood pressure more elevated but orthostatic symptoms resolved. Continue to monitor. Blood sugars elevated requiring SSI. Novolog increased to 8 units (from 7 units ) with meals. Continue to monitor closely. INR therapeutic. Pharmacy managing.
[2018-01-09] MEDS: INSULIN DETEMIR 100unit/ml INJECTION SQ SCH (21:15)
[2018-01-09] MEDS: ATORVASTATIN 10 MG TABLET PO SCH (21:16)
[2018-01-09] MEDS: ACETAMINOPHEN 325 MG TABLET PO PRN (23:59)
[2018-01-10] MEDS: TRAMADOL 50 MG TABLET PO PRN ×2 (07:11→21:22)
[2018-01-10] MEDS: INSULIN ASPART 100unit/ml INJECTION SQ SCH ×3 (08:30→17:28)
[2018-01-10] MEDS: FERROUS SULFATE 324 MG TABLET PO SCH (08:30)
[2018-01-10] MEDS: CALCIUM 600 + VIT D 400 TABLET PO SCH ×2 (08:31→17:28)
[2018-01-10] MEDS: CycloSPORINE 0.05% EYE DROPS 4ml EACH EYE SCH ×2 (08:32→21:23)
[2018-01-10] MEDS: METFORMIN 500 MG TABLET PO SCH ×2 (08:32→17:29)
[2018-01-10] MEDS: FLUoxetine 20 MG CAPSULE PO SCH (08:35)
--- NOTE | 2018-01-10 09:32 | Pharmacy Consult ---
Pharmacy Consult-Warfarin - Laboratory Information 01/08/18 01/09/18 01/10/18 04:27 04:28 03:50 Hgb Hct INR 2.34 H 2.56 H 1.98 H AST ALT Albumin - Consult Information Warfarin consult: Day 12 72 yr old female 5'0" admitted from floor to IRU with generalized weakness. Pt had sepsis with UTI. History of A.fib and chronic anticoagulation with warfarin. goal INR range= 2.0 to 3.0 Her home dose regimen of warfarin is 3 mg six days a week and 4 mg once a week. DATE INR DOSE 01/02 3.45 HOLD dose 01/03 3.09 1 mg 01/04 1.99 3 mg 01/05 1.67 6 mg 01/06 1.56 6 mg 01/07 1.91 5 mg 01/08 2.34 3 mg 01/09 2.56 3 mg 01/10 1.98 4 mg INR is slightly subtherapeutic range. Will give Warfarin 4 mg po today. Pharmacy will monitor and adjust as needed. Thank you, Cior Argueta [facility]
[2018-01-10] MEDS: INSULIN ASPART 100unit/ml INJECTION SQ PRN (10:49)
--- NOTE | 2018-01-10 11:17 | IRU Progress Note ---
- Subjective/Serverity of Illness Date: 01/10/18 Cecille is feeling better. She has had fewer episodes of orthostasis. She says she only had one episode over the weekend. Her blood pressures however have remained stable. She does drop a bit but not below 100. She is wearing support hosiery. In addition we have made some medication changes. She denies any chest pain or shortness of breath. Her appetite remains good. She is cooperative with therapy. Her hemoglobin is stable at over 10 g percent. She has no symptoms of UTI and remains afebrile. Continues to have generalized weakness and back pain presumably related to her L2 compression fracture. She is able to bathe with minimum assistance. Upper body dressing requires moderate assistance while lower body dressing requires minimum assistance. From a physical therapy standpoint, she is transferring with standby assistance and able to walk over 200 feet with standby assistance to supervision level with a 4 wheeled walker. Exam Vital Signs: Temperature 97.6 F 01/10/18 07:13 Pulse Rate 70 01/10/18 07:13 Respiratory Rate 16 01/10/18 07:13 Blood Pressure 127/67 01/10/18 07:13 Pulse Oximetry 96 01/10/18 07:13 Height/Weight/BMI: Height 1.52 m Weight 87.9 kg Body Mass Index 37.8 - Constitutional Present: well nourished, well developed, obese, cooperative Comments: Patient states that she feels better and would really like to go home sooner than later. - Routine HEENT Exam Eye: Present: EOMI ENT: Present: mucous membranes moist, dentition normal - Routine Respiratory Exam Present: CTA bilaterally. Absent: wheezes - Routine Cardiovascular Exam Present: RRR (patient has been reportedly in atrial fibrillation although sounds regular at present. She also has a pacemaker in place which could account for this.), S1, S2. Absent: murmur - Routine Abdominal Exam Present: soft, normoactive bowel sounds, non distended. Absent: tenderness - Routine Extremities Exam Present: normal capillary refill - Routine Skin Exam Present: dry, warm - Routine Neurological Exam Present: alert, oriented X3, CN II-XII intact - Routine Psychiatric Exam Present: normal affect Results IRU - Labs Labs: Have reviewed chart data and other providers notes. IRU A/P (1) Generalized weakness Current visit: Yes Status: Acute Blas continues to have generalized weakness but is slowly improving from a functional standpoint. Her orthostatic hypotension did slow her down a bit but seems to be improved. (2) Facial laceration Qualifiers: Encounter type: initial encounter Qualified Code(s): S01.81XA - Laceration without foreign body of other part of head, initial encounter Current visit: No Status: Acute (3) Compression fracture of L2 Qualifiers: Encounter type: initial encounter Fracture type: closed Qualified Code(s) : S32.020A - Wedge compression fracture of second lumbar vertebra, initial encounter for closed fracture Current visit: No Status: Acute (4) Thrombocytopenia Current visit: No Status: Chronic Most recent platelet count is 85,000. No evidence of active bleeding. (5) Atrial fibrillation Qualifiers: Atrial fibrillation type: chronic Qualified Code(s): I48.2 - Chronic atrial fibrillation Current visit: Yes Status: Chronic (6) Anemia Qualifiers: Anemia type: unspecified type Qualified Code(s): D64.9 - Anemia, unspecified Current visit: Yes Status: Acute Her hemoglobin is stable at 10 g percent. (7) Vasovagal episode Current visit: Yes Status: Resolved Her orthostatic hypotension seems to have improved both objectively and subjectively. (8) Chronic combined systolic (congestive) and diastolic (congestive) heart failure Current visit: Yes Status: Chronic (9) DM II (diabetes mellitus, type II), controlled Qualifiers: Diabetes mellitus computer terminal operator insulin use: with computer terminal operator use Diabetes mellitus complication status: with neurologic complications Diabetes mellitus complication detail: with autonomic neuropathy Qualified Code(s): E11.43 - Type 2 diabetes mellitus with diabetic autonomic (poly)neuropathy; Z79.4 - buttermaker helper (current) use of insulin Current visit: Yes Status: Chronic DVT Prophylaxis: Coumadin Resuscitation Status: Full Code - Course Hospital Course: Giana Mcleod, DO: 01/06/18 11:51 Patient had a hypotensive episode this morning likely vasovagal. We will discontinue Flomax and Flexeril. No chest pain and no shortness of breath. Telemetry started. Hold therapy. 01/07/18 11:10 Continues to struggle with orthostatic hypotension. New data indicates combined systolic and diastolic heart failure chronically from echocardiogram August 2017 We will reduce metoprolol to 25 mg twice daily. Add support hosiery. Continue therapy 01/10/18 11:20 Fewer episodes of lightheadedness. Blood pressures are improved. No evidence of recurrence of UTI. - Interventions to Obtain Goals PT Treatment Plan: Balance/Proprioception, Functional Activities, Gait Training , Patient/Family Education, Therapeutic Exercise OT Treatment Plan: ADL (Basic Care), IADL, UE Functional Training Goals Progress/Modifications: Medically she seems to be stable. No evidence of recurrence of her UTI. We will discuss with therapy at team meeting today as to whether she is able to make further progress. She would like to go home sooner than later. We will discuss with therapy in this regard. Continues to require moderate assistance for upper body dressing.
[2018-01-10] MEDS ORDERED: WARFARIN 4 MG TABLET PO SCH (12:00)
[2018-01-10] MEDS: DIGOXIN 125 MCG TABLET PO SCH (12:29)
[2018-01-10] MEDS: ATORVASTATIN 10 MG TABLET PO SCH (21:23)
[2018-01-10] MEDS: INSULIN DETEMIR 100unit/ml INJECTION SQ SCH (21:23)
--- NOTE | 2018-01-11 07:37 | Pharmacy Consult ---
Pharmacy Consult-Warfarin - Laboratory Information 01/08/18 01/09/18 01/10/18 04:27 04:28 03:50 Hgb Hct INR 2.34 H 2.56 H 1.98 H AST ALT Albumin 01/11/18 04:11 Hgb Hct INR 1.79 H AST ALT Albumin - Consult Information Warfarin consult: Day 13 72 yr old female 5'0" admitted from floor to IRU with generalized weakness. Pt had sepsis with UTI. History of A.fib and chronic anticoagulation with warfarin. goal INR range= 2.0 to 3.0 Her home dose regimen of warfarin is 3 mg six days a week and 4 mg once a week. DATE INR DOSE 01/02 3.45 HOLD dose 01/03 3.09 1 mg 01/04 1.99 3 mg 01/05 1.67 6 mg 01/06 1.56 6 mg 01/07 1.91 5 mg 01/08 2.34 3 mg 01/09 2.56 3 mg 01/10 1.98 4 mg 01/11 1.79 5 mg INR is slightly subtherapeutic range. Will give Warfarin 5 mg po today. Pharmacy will monitor and adjust as needed. Thank you, Ciro Argueta [facility]
[2018-01-11] MEDS: CALCIUM 600 + VIT D 400 TABLET PO SCH ×2 (08:38→17:54)
[2018-01-11] MEDS: FLUoxetine 20 MG CAPSULE PO SCH (08:38)
[2018-01-11] MEDS: METFORMIN 500 MG TABLET PO SCH ×2 (08:38→17:54)
[2018-01-11] MEDS: CycloSPORINE 0.05% EYE DROPS 4ml EACH EYE SCH (08:38)
[2018-01-11] MEDS: INSULIN ASPART 100unit/ml INJECTION SQ SCH ×3 (08:39→17:52)
[2018-01-11] MEDS: DIGOXIN 125 MCG TABLET PO SCH (11:23)
[2018-01-11] MEDS: TRAMADOL 50 MG TABLET PO PRN (11:24)
[2018-01-11] MEDS ORDERED: WARFARIN 5 MG TABLET PO SCH (12:00)
[2018-01-11] MEDS: INSULIN ASPART 100unit/ml INJECTION SQ PRN (12:24)
--- NOTE | 2018-01-11 12:33 | IRU Progress Note ---
- Subjective/Serverity of Illness Date: 01/11/18 Cecille is doing very well with therapy. She reports that her lightheadedness has not really been an issue. Had a mild headache but that has resolved. She states that she feels comfortable going home. She is on tramadol at home. She is not certain how many she has so we will give her a prescription for 30 of them. I reviewed her telemetry. She is in normal sinus mechanism with rare PVC. From a therapy standpoint, the patient is able to transfer with modified independent level. Car transfers are with standby assist. She is able to ambulate 800 feet with a 4 wheeled walker. She is modified independent for bathing, upper body dressing and toileting and is standby assist for lower body dressing. Exam Vital Signs: Temperature 98.1 F 01/11/18 08:00 Pulse Rate 65 01/11/18 11:23 Respiratory Rate 20 01/11/18 11:24 Blood Pressure 115/69 01/11/18 08:00 Pulse Oximetry 94 01/11/18 08:00 Height/Weight/BMI: Height 1.52 m Weight 87.9 kg Body Mass Index 37.8 - Constitutional Present: no acute distress, well nourished, well developed - Routine HEENT Exam Eye: Present: EOMI ENT: Present: mucous membranes moist, dentition normal - Routine Respiratory Exam Present: CTA bilaterally. Absent: wheezes - Routine Cardiovascular Exam Present: RRR, S1, S2. Absent: murmur - Routine Abdominal Exam Present: soft, normoactive bowel sounds, non distended. Absent: tenderness - Routine Extremities Exam Present: normal capillary refill - Routine Skin Exam Present: dry, warm - Routine Neurological Exam Present: alert, oriented X3, CN II-XII intact - Routine Psychiatric Exam Present: normal affect IRU A/P (1) Generalized weakness Current visit: Yes Status: Acute Patient has progressed nicely with therapy and is stable for transfer to her home environment. The 4 wheeled walker is present now from the [employer] and she is being trained with that. (2) Facial laceration Qualifiers: Encounter type: initial encounter Qualified Code(s): S01.81XA - Laceration without foreign body of other part of head, initial encounter Current visit: No Status: Acute (3) Compression fracture of L2 Qualifiers: Encounter type: initial encounter Fracture type: closed Qualified Code(s) : S32.020A - Wedge compression fracture of second lumbar vertebra, initial encounter for closed fracture Current visit: No Status: Acute (4) Thrombocytopenia Current visit: No Status: Chronic (5) Atrial fibrillation Qualifiers: Atrial fibrillation type: chronic Qualified Code(s): I48.2 - Chronic atrial fibrillation Current visit: Yes Status: Chronic (6) Anemia Qualifiers: Anemia type: unspecified type Qualified Code(s): D64.9 - Anemia, unspecified Current visit: Yes Status: Acute (7) Vasovagal episode Current visit: Yes Status: Resolved (8) Chronic combined systolic (congestive) and diastolic (congestive) heart failure Current visit: Yes Status: Chronic (9) DM II (diabetes mellitus, type II), controlled Qualifiers: Diabetes mellitus chcf insulin use: with intermediate manager use Diabetes mellitus complication status: with neurologic complications Diabetes mellitus complication detail: with autonomic neuropathy Qualified Code(s): E11.43 - Type 2 diabetes mellitus with diabetic autonomic (poly)neuropathy; Z79.4 - termite control servicer (current) use of insulin Current visit: Yes Status: Chronic DVT Prophylaxis: Coumadin Resuscitation Status: Full Code - Course Hospital Course: Giana Mcleod, DO: 01/06/18 11:51 Patient had a hypotensive episode this morning likely vasovagal. We will discontinue Flomax and Flexeril. No chest pain and no shortness of breath. Telemetry started. Hold therapy. 01/07/18 11:10 Continues to struggle with orthostatic hypotension. New data indicates combined systolic and diastolic heart failure chronically from echocardiogram August 2017 We will reduce metoprolol to 25 mg twice daily. Add support hosiery. Continue therapy 01/10/18 11:20 Fewer episodes of lightheadedness. Blood pressures are improved. No evidence of recurrence of UTI. 01/11/18 12:33 Denies lightheadedness. Ready to go home today. - Interventions to Obtain Goals PT Treatment Plan: Balance/Proprioception, Functional Activities, Gait Training , Patient/Family Education, Therapeutic Exercise OT Treatment Plan: ADL (Basic Care), IADL, UE Functional Training
--- NOTE | 2018-01-11 14:34 | Discharge Summary ---
Discharge Information Date of admission: 01/02/18 10:50 Anticipated date of discharge: 01/11/18 Attending Physician: Richard Magallanes MD Primary care physician: Alesia Sesay MD Consults: 01/02/18 12:24 Physician Consult [CONS] Routine Consulting Provider: Enrique Rodriges Reason For Exam: medical management Ordering Provider has Notified Pamphlet Distributor: No - Discharge Diagnosis (1) Generalized weakness Status: Acute (2) Facial laceration Status: Acute (3) Compression fracture of L2 Status: Acute (4) Thrombocytopenia Status: Chronic (5) Atrial fibrillation Status: Chronic (6) Anemia Status: Acute (7) Vasovagal episode Status: Resolved (8) Chronic combined systolic (congestive) and diastolic (congestive) heart failure Status: Chronic (9) DM II (diabetes mellitus, type II), controlled Status: Chronic 1. Generalized debilitation 2. Chronic back pain with chronic compression fracture of L2 3. Thrombocytopenia 4. Paroxysmal atrial fibrillation 5. Acute blood loss anemia 6. Orthostatic hypotension with vasovagal syncope 7. Combined systolic and diastolic heart failure 8. Diabetes was type II on long-term insulin with neurologic complications ( autonomic dysfunction resulting in orthostatic hypotension) - Laboratory Labs: 01/06/18 04:13 01/06/18 04:13 History of Present Illness HPI: Ms. Santiago is a 72-year-old female admitted 12/29/2017 to acute care at [facility]. She had been having multiple falls. She had a urinary tract infection with Escherichia coli which was resistant to ampicillin and Bactrim but otherwise sensitive. Blood cultures were negative. She also had thrombocytopenia and met sepsis criteria as well as L2 compression fracture which appeared to be old on CT scan. She also sustained a laceration above her right eyebrow which was sutured in the emergency department. The patient was noted to have multiple functional deficits and required monitoring of her low platelet count and risk of bleeding as well as monitoring for recurrence of her UTI. She was transferred to acute inpatient rehabilitation on 01/02/2018. Hospital Course This is a general summary of the patient's hospital course. For more details refer to the complete medical record. The patient was admitted to acute inpatient rehabilitation on 01/02/2018 for a comprehensive multidisciplinary approach to her recovery. INR was monitored and managed by the pharmacy. It was difficult to elevate her INR to therapeutic levels despite increasing doses of warfarin. Upon dismissal her INR is 1.79. She is sent home on warfarin 3 mg alternating with 4 mg every other day. Home health is asked to draw an INR in 1 week which would be approximately [address] Alesia Sesay. Medically she did experience episodes of documented hypotension. Etiology was uncertain of likely related to autonomic dysfunction from her diabetes mellitus. Echocardiogram from [place] dated 08/31/2017 demonstrated an ejection fraction of 45-50% with grade 1 diastolic dysfunction and mild aortic regurgitation. The patient has a history of known atrial fibrillation. She was placed on telemetry here and for the most part was in sinus mechanism with rare PVC. We did reduce her metoprolol to 25 mg twice daily and stop the Flomax and Flexeril thinking that may help her blood pressure. In addition we added support hosiery which was beneficial for her blood pressure. Her final platelet count on 01/06/2018 was 85,000. Hemoglobin 10.4 and white blood cell count 8200. Following these interventions her blood pressure did remain improved with typical values in the 120s and even up into the 150s at times. Lowest blood pressure recorded was 77/51 on 01/07/2018. Since her blood pressure came up better, her metoprolol dose was placed back at 50 mg twice daily which was her home dose. The following levels of functional competence are to be considered preliminary information. The reader is encouraged to refer to actual therapy notes and reports for specific details. The patient was followed by physical therapy while on acute inpatient rehabilitation. At the conclusion of her stay, the following functional competencies were identified: She was able to transfer with modified independence using a 4 wheeled walker. She was able to ambulate with a 4 wheeled walker 800 feet and seemed to be quite safe with that. The patient was followed by occupational therapy while on acute inpatient rehabilitation. At the conclusion of her stay, the following functional competencies were identified: She was able to perform grooming, bathing and upper extremity dressing with modified independence. She required standby assistance for EMELIA hose placement in the lower extremities. She was able to perform toileting assistance with modified independent level. Please note that we did give her a prescription for tramadol 50 mg #30 with no refills at the time of dismissal. She will follow-up with Dr. Sesay. INR will be obtained in one week with results to Dr. Sesay. She is going home with home health. Hospital course: 01/03/18 Agree with IRU admission for further strengthening and pain control. Follow BS's. At home, it appears she was taking NovoLog 15 units before meals and Levemir 38 units at at bedtime. During her medical stay, her Levemir was decreased to 24 units and she was on sliding scale. Will leave her on the Levemir and sliding scale for now and as we have more readings, can convert her SSI back to NovoLog before meals. Pharmacy to manage warfarin. Need to be cautious given the initiation of Augmentin. Completed 1 day Levaquin & 4 days Rocephin on medical floor, now on Augmentin. Plan to complete a 7 day course of antibiotics. Discussed with Dr. Colunga, ID. Sutures placed 12/28/17. These will be removed today. Follow hgb -9.9 today. (Previous records show ave of 11 in 08/01) Care to return to Dr. Alesia Sesay on discharge. 01/05/18 Currently on 7U NovoLog ac and 24U Levemir at hs. BS's improved. Will continue to adjust as needed. (At home, it appears she was taking NovoLog 15 units before meals and Levemir 38 units at at bedtime.) Completed course of atbx for UTI. Hgb improving -9.9-->10.3. (Previous records show ave of 11 in 08/01) Vitals stable. Chart reviewed. 01/06/18 Pt placed on telemetry. EKG shows sinus rhythm with no acute changes in comparison to previous EKG on 07/16/17. Troponin neg. Will trend troponins. CXR neg. UA uncollected at time of documentation. Hgb stable. BS's stable. Currently on 7U NovoLog ac and 24U Levemir at hs. Pt was bolused 1L NS. BP back up to 118/[address]F's[address] Magallanes had DC'd flexeril and Flomax. INR subtherapeutic - no Lovenox bridging needed for afib. Home insulin - NovoLog 15 units before meals and Levemir 38 units at bedtime 01.07.18 UA obtained yesterday was normal Metoprolol dose this morning held given hypotension Dose decreased to 25mg BID. May need to consider lowering it more Continue to follow blood sugars Encourage with with PT/OT INR nearly therapeutic at 1.9- no need to bridge 01/09/18 Doing well and making gains. Continue therapies and treatments per Dr. Magallanes. She continues to be orthostatic but denies any symptoms. Continue to monitor closely. High fall risk. Metoprolol decreased to 25mg BID on 01/07/18. Blood pressure more elevated but orthostatic symptoms resolved. Continue to monitor. Blood sugars elevated requiring SSI. Novolog increased to 8 units (from 7 units ) with meals. Continue to monitor closely. INR therapeutic. Pharmacy managing. Time spent with patient: greater than 35 minutes Resuscitation Status: Full Code Discharge Plan - Med Rec/Dispo Referrals/Follow Up: Alesia Sesay MD [Primary Care Provider] - 1 Week (please follow INR Dr. Arturo Sesay on 01/17/18 at 2:50 pm for Hosp. follow-up. ) Prescriptions: New Metformin [Glucophage] 500 mg PO BIDWM tab Continue Atorvastatin Calcium 10 mg PO HS #0 Calcium Carbonate 600 mg PO BIDBS #0 Cholecalciferol (Vitamin D3) [Vitamin D3] 1,000 unit PO DAILY Metoprolol Tartrate 50 mg PO BIDWM FLUoxetine [Prozac] 20 mg PO DAILY cycloSPORINE [Restasis Multidose] 1 drop EACH EYE BID Insulin Aspart [NovoLOG] 15 unit SQ AC Insulin Detemir [Levemir] 24 unit SQ HS Ferrous Sulfate 325 mg PO MOWEFR@1700 Losartan [Cozaar] 50 mg PO DAILY Aspirin [Aspirin EC] 81 mg PO DAILY Acetaminophen [Acetaminophen 8 Hour] 325 - 650 mg PO Q5H PRN #0 PRN Reason: Discomfort Digoxin 125 mcg PO NOON #0 Tramadol [Ultram] 50 mg PO Q6HR PRN #30 tab PRN Reason: Pain Changed Warfarin Sodium 4 mg PO MOWEFRSA #30 Warfarin Sodium 3 mg PO SUTUTH #30 Discontinued Metformin HCl [Metformin HCl ER] 500 mg PO BID Cyclobenzaprine [Flexeril] 10 mg PO TID Hydrocodone/APAP 5/325 [[place] 5/325] 1 - 2 tab PO Q4H PRN PRN Reason: Pain Tamsulosin [Flomax] 0.4 mg PO HS #28 cap Amoxicillin/Potassium Clav [Augmentin 875-125 Tablet] 1 each PO Q12H - Disposition 01 Discharged Home, Self-Care - Dismissal Complete Discharge Instructions are:: Complete
--- NOTE | 2018-01-11 14:40 | Letter to Referring Physician ---
Dear Dr. Sesay, This is a brief note to bring you up-to-date on the status of Cecille Santiago and her stay on the acute inpatient rehabilitation unit at [facility]. As you are likely aware, this patient was admitted to [facility] on for multiple falls. She was found to have sepsis and a urinary tract infection with Escherichia coli. She did sustain a laceration to her right forehead which was sutured and resolved. The patient was stabilized while on the acute level and admitted to inpatient rehabilitation unit at [facility] on January 02, 2018. While on inpatient rehabilitation, this patient was seen by occupational therapy and physical therapy and improved overall in their functional ability. We also monitored and managed the patient's blood pressure (orthostatic hypotension and vasovagal response at one point) while on Acute Rehab. Please see a copy of the history and physical examination as well as discharge summary faxed separately for further details. It is also noted that her platelet count was initially 22,000 on acute care and 85,000 upon dismissal from rehabilitation. Her INR is 1.79 on 01/11/2018. She is going home on warfarin 3 mg alternating with 4 mg every other day. Home health is to draw another INR in 1 week with results to you for management. I did give her a prescription for tramadol 50 mg #30 with no refills for her chronic back pain at the time of dismissal. Thank you for allowing us to be involved in this nice patient's care. Please contact me directly should you have any questions regarding their stay on the inpatient rehabilitation unit. Sincerely, Richard Magallanes M.D.
[2018-01-11 15:42] VITALS: BP 134/79; PULSE 62; RESP 18; TEMP 97.5; O2SAT 99
--- NOTE | 2018-01-12 10:49 | Right on Track Program ---
Right on Track Program Date of Discharge: 01/11/18 Home Medications: Home Medications Medication Instructions Recorded Confirmed Acetaminophen [Acetaminophen 8 325 - 650 mg PO Q5H PRN #0 07/28/16 01/02/18 Hour] Atorvastatin Calcium 10 mg PO HS #0 07/28/16 01/02/18 Calcium Carbonate 600 mg PO BIDBS #0 07/28/16 01/02/18 Digoxin 125 mcg PO NOON #0 07/28/16 01/02/18 Cholecalciferol (Vitamin D3) 1,000 unit PO DAILY 07/16/17 01/02/18 [Vitamin D3] FLUoxetine [Prozac] 20 mg PO DAILY 07/16/17 01/02/18 Metoprolol Tartrate 50 mg PO BIDWM 07/16/17 01/02/18 cycloSPORINE [Restasis Multidose] 1 drop EACH EYE BID 07/16/17 01/02/18 Ferrous Sulfate 325 mg PO MOWEFR@1700 08/02/17 01/02/18 Insulin Aspart [NovoLOG] 15 unit SQ AC 08/02/17 01/02/18 Insulin Detemir [Levemir] 24 unit SQ HS 08/02/17 01/02/18 Aspirin [Aspirin EC] 81 mg PO DAILY 12/28/17 01/02/18 Losartan [Cozaar] 50 mg PO DAILY 12/28/17 01/02/18 Previous Rx's Medication Instructions Recorded Metformin [Glucophage] 500 mg PO BIDWM tab 01/10/18 Warfarin Sodium 3 mg PO SUTUTH #30 01/10/18 Warfarin Sodium 4 mg PO MOWEFRSA #30 01/10/18 Tramadol [Ultram] 50 mg PO Q6HR PRN #30 tab 01/11/18 - Right on Track Program Phone call Date: 01/12/18 Right on Track Program: 24 Hour Follow-Up Discharge Summary Received: Yes Care Plan Received: Yes Follow Up: Follow Up Appointment Scheduled (01/17/[address] Sesay) Education: Diagnosis Education Reviewed Referral: Primary Care Physician Comments: I spoke to Cecille on 01/12/18. She is doing well, though feels a little tired. She has no questions/concerns about her discharge instructions. Her medications are bubble wrapped per [facility]. I inquired about her BG, and she stated that it read "HI" this am. I reviewed with her that we reduced her evening insulin dose, and then she recalled that she didn't take any insulin before bed at all last night. She will make sure she does that today. She has an appt scheduled with Dr. Alesia Sesay on 01/17/18. We arranged a time for a home visit for 01/19/18. I also briefly spoke with her DPOA, Sherlyn, who agreed with a home visit. Discussed With Patient and Caregiver: Yes Recommendations For Follow-up: 1. F/U with Dr. Sesay as planned. 2. Home visit 01/19/18 at 9 am. Home visit Date: 01/19/18 Right on Track Program: 7-14 Day [id number] Discharge Summary Received: Yes Care Plan Received: Yes Follow Up: Follow Up Appointment Scheduled Education: Diagnosis Education Reviewed Referral: Primary Care Physician, Home Health Comments: I visited Cecille at her apartment in [place] on 01/19/18. She was doing quite well. She has not had any falls and is going on frequent walks. She denies feeling dizzy or lightheaded. She denies any pain. She denies SOA or chest pain or palpitations. She has been eating well. Her blood sugars have been under better control and she states that her hgb A1c has dropped from 9% to 8% at her Dr. appointment yesterday. Her INR was 2.2. She occasionally gets right sided headaches but tramadol controls her pain. Meds reviewed - no questions/concerns. Exam Gen: A&O x3, NAD, pleasant HEENT: Ecchymosis has faded. CV: RRR Lungs: CTAB Abd: benign Ext: no edema Recommendations For Follow-up: Overall, doing well. Continue current plan; continue HH and PT. F/U with PCP.
== END 2018-01-11 19:00 | disposition home health service (06) | DRG 556 ==
PROVIDERS: ADMIT Internal Medicine; ATTEND Internal Medicine